=== PATIENT | female | born 1960 | race Caucasian/White ===

== ENCOUNTER 2022-10-13 09:33 | Outpatient (OUT) | payer OTHER, SELFPAY ==
[2022-10-13 10:03] LABS: Basophils Absolute Auto 0.1 10^3/uL (0.0-0.1); Basophils Percent Auto 0.9 % (0.2-2.0); Eosinophils Absolute Auto 0.3 10^3/uL (0.0-0.7); Eosinophils Percent Auto 4.4 % (0.9-7.0); Hematocrit 36.8 % (36.0-48.0); Hemoglobin 11.8 g/dL (12.0-16.0); Immature Granulocytes Abs Auto 0.03 10^3/uL (0.00-0.03); Immature Granulocytes Pct Auto 0.5 % (0.0-0.5); Lymphocytes Absolute Auto 1.4 10^3/uL (1.2-3.8); Mean Corpuscular HGB Conc 32.1 g/dL (29.9-35.2); Mean Corpuscular Hemoglobin 27.5 pg (26.7-34.0); Mean Corpuscular Volume 85.8 fL (81.0-99.0); Mean Platelet Volume 9.6 fL (9.5-13.5); Monocytes Absolute Auto 0.6 10^3/uL (0.3-0.8); Monocytes Percent Auto 10.7 % (1.7-12.0); Neutrophils Absolute Auto 3.3 10^3/uL (1.4-6.5); Neutrophils Percent Auto 58.5 % (43.0-75.0); Platelet Count 326 10^3/uL (150-450); Red Blood Count 4.29 10^6/uL (4.20-5.40); Red Cell Distribution Width 14.5 % (11.0-15.0); White Blood Count 5.7 10^3/uL (4.0-11.0)
[2022-10-13 10:06] LABS: Estimated Average Glucose 120 mg/dL; Glycohemoglobin A1C 5.8 % (4.5-6.2)
[2022-10-13 11:12] LABS: Sodium 139 mmol/L (136-145)
[2022-10-13 11:13] LABS: Alanine Aminotransferase 46 U/L (14-59); Albumin Globulin Ratio 1.1; Albumin Level 3.9 g/dL (3.4-5.0); Alkaline Phosphatase 92 U/L (46-116); Anion Gap 12.2; Aspartate Amino Transferase 30 U/L (15-37); BUN Creatinine Ratio 35.6; Bilirubin Total 0.6 mg/dL (0.2-1.0); Calcium 9.3 mg/dL (8.5-10.1); Carbon Dioxide 27.2 mmol/L (21.0-32.0); Chloride 104 mmol/L (98-107); Estimated GFR (African America >60 (>=60); Estimated GFR (Non-African Ame >60 (>=60); Globulin 3.6 g/dL; Glucose 106 mg/dL (74-106); Potassium 4.4 mmol/L (3.5-5.1); Total Protein 7.5 g/dL (6.4-8.2); Triglycerides 203 mg/dL (<=150); VLDL CHOLESTEROL 40.6 mg/dL
[2022-10-13 11:14] LABS: Chol HDL Ratio 3.7; Cholesterol 150 mg/dL (<=200); Free T3 2.62 pg/mL (2.18-3.98); HDL Cholesterol 41 mg/dL (40-60); Thyroid Stimulating Hormone 0.133 uIU/mL (0.358-3.740)
[2022-10-14 12:09] LABS: Insulin 11.9 uIU/mL (2.6-24.9)
== END 2022-10-13 09:34 | disposition home or self-care (01) ==
PROVIDERS: PCP Family Medicine; Visit Provider Family Medicine
DX: Z00.00 Encounter for general adult medical examination without abnormal findings (principal)
CPT/HCPCS: 36415; 80053; 80061; 82306; 83036; 83525; 83540; 84436; 84443; 84481; 85025

== ENCOUNTER 2022-10-16 09:57 | Outpatient (REF) | payer OTHER, SELFPAY ==
[2022-10-16 15:25] LABS: Occult Blood Negative
[2022-10-17 08:02] LABS: C. Difficile PCR NEGATIVE (NEGATIVE)
== END 2022-10-16 09:58 | disposition home or self-care (01) ==
LOC: LAB 09:57
PROVIDERS: PCP Family Medicine; Visit Provider Family Medicine
DX: Z00.00 Encounter for general adult medical examination without abnormal findings (principal)
CPT/HCPCS: 87045; 87493; 87507; G0328

== ENCOUNTER 2023-07-10 09:27 | Outpatient (OUT) | payer OTHER, SELFPAY ==
[2023-07-10 09:44] LABS: Basophils Absolute Auto 0.1 10^3/uL (0.0-0.1); Basophils Percent Auto 0.9 % (0.2-2.0); Eosinophils Absolute Auto 0.3 10^3/uL (0.0-0.7); Eosinophils Percent Auto 2.7 % (0.9-7.0); Hematocrit 34.7 % (36.0-48.0); Hemoglobin 10.4 g/dL (12.0-16.0); Immature Granulocytes Abs Auto 0.06 10^3/uL (0.00-0.03); Immature Granulocytes Pct Auto 0.6 % (0.0-0.5); Lymphocytes Absolute Auto 1.8 10^3/uL (1.2-3.8); Lymphocytes Percent Auto 18.9 % (20.5-60.0); Mean Corpuscular Hemoglobin 24.4 pg (26.7-34.0); Mean Corpuscular Volume 81.5 fL (81.0-99.0); Mean Platelet Volume 9.6 fL (9.5-13.5); Monocytes Absolute Auto 0.9 10^3/uL (0.3-0.8); Monocytes Percent Auto 9.7 % (1.7-12.0); Neutrophils Absolute Auto 6.5 10^3/uL (1.4-6.5); Neutrophils Percent Auto 67.2 % (43.0-75.0); Platelet Count 338 10^3/uL (150-450); Red Blood Count 4.26 10^6/uL (4.20-5.40); Red Cell Distribution Width 19.6 % (11.0-15.0); White Blood Count 9.6 10^3/uL (4.0-11.0)
[2023-07-10 13:05] LABS: Alanine Aminotransferase 156 U/L (14-59); Albumin Level 3.5 g/dL (3.4-5.0); Alkaline Phosphatase 87 U/L (46-116); Anion Gap 13.4; Aspartate Amino Transferase 102 U/L (15-37); BUN Creatinine Ratio 30.1; Bilirubin Total 0.4 mg/dL (0.2-1.0); Calcium 9.8 mg/dL (8.5-10.1); Carbon Dioxide 28.1 mmol/L (21.0-32.0); Chloride 104 mmol/L (98-107); Chol HDL Ratio 2.8; Cholesterol 150 mg/dL (<=200); Estimated GFR (African America >60 (>=60); Estimated GFR (Non-African Ame >60 (>=60); Globulin 3.5 g/dL; Glucose 91 mg/dL (74-106); HDL Cholesterol 54 mg/dL (40-60); LDL Cholesterol Calculated 77.8 mg/dL; Potassium 4.5 mmol/L (3.5-5.1); Sodium 141 mmol/L (136-145); Thyroid Stimulating Hormone 6.212 uIU/mL (0.358-3.740); Triglycerides 91 mg/dL (<=150); VLDL CHOLESTEROL 18.2 mg/dL
[2023-07-10 14:42] LABS: Estimated Average Glucose 108 mg/dL; Glycohemoglobin A1C 5.4 % (4.5-6.2)
[2023-07-10 14:50] LABS: C. Difficile PCR NEGATIVE (NEGATIVE)
== END 2023-07-10 09:28 | disposition home or self-care (01) ==
LOC: LAB 09:28
PROVIDERS: PCP Family Medicine; Visit Provider Family Medicine
DX: Z00.00 Encounter for general adult medical examination without abnormal findings (principal); E78.5 Hyperlipidemia, unspecified; R73.9 Hyperglycemia, unspecified; R10.11 Right upper quadrant pain
CPT/HCPCS: 36415; 80053; 80061; 83036; 84436; 84443; 84481; 85025; 87045; 87046; 87427; 87493

== ENCOUNTER 2023-07-14 08:43 | Outpatient (OUT) | payer OTHER, SELFPAY ==
--- NOTE | 2023-07-14 08:47 | US_ITS ---
[facility] [id number] Patient Name: GRACY QUINTANA MRN: [id number] date: 1960 Sex: F Assigned Patient Location: US Current Patient Location: US Accession/Order Number: [id number] Exam Date: 07/14/2023 08:50 Report Date: 07/14/2023 09:20 At the request of: LUCRETIA HARRY Procedure: US right upper quadrant EXAM: US right upper quadrant HISTORY: Right Upper Quadrant Pain R10.11 COMPARISON: None. TECHNIQUE: Grayscale, color and Doppler FINDINGS: The liver is normal in size and contour measuring 18.2 cm in length. Diffuse increase in hepatic echotexture with no focal mass. Hepatopedal flow in the portal vein with velocity of 34 cm/s. The gallbladder is normal in size. The wall measures 2 mm, normal. Negative sonographic Almendarez sign. The common bile duct measures 3.8 mm. The visualized pancreas is normal The right kidney is normal measuring 11.9 x 5.4 x 5.7 cm. 2 cm area of anechoic echogenicity lower pole cortex consistent with a simple cyst. US/US right upper quadrant IMPRESSION: Echogenic liver suggesting hepatic steatosis Electronically authenticated by: DANE JACOME Date: 07/14/2023 09:20
== END 2023-07-14 08:44 | disposition home or self-care (01) ==
LOC: US 08:43
PROVIDERS: PCP Family Medicine; Visit Provider Family Medicine
DX: R10.11 Right upper quadrant pain (principal)
CPT/HCPCS: 76705

== ENCOUNTER 2023-07-16 08:48 | Outpatient (OUT) | payer OTHER, SELFPAY ==
[2023-07-16 09:59] LABS: Alanine Aminotransferase 169 U/L (14-59); Albumin Level 3.5 g/dL (3.4-5.0); Alkaline Phosphatase 93 U/L (46-116); Anion Gap 12.7; Aspartate Amino Transferase 106 U/L (15-37); BUN Creatinine Ratio 27.8; Bilirubin Total 0.6 mg/dL (0.2-1.0); Calcium 9.4 mg/dL (8.5-10.1); Chloride 103 mmol/L (98-107); Estimated GFR (African America >60 (>=60); Estimated GFR (Non-African Ame >60 (>=60); Globulin 3.5 g/dL; Glucose 94 mg/dL (74-106); Potassium 4.7 mmol/L (3.5-5.1); Sodium 139 mmol/L (136-145)
[2023-07-17 06:09] LABS: HBsAg Screen Negative (Negative); HCV Ab Non Reactive (Non Reactive); Hep A Ab, IgM Negative (Negative); Hep B Core Ab, IgM Negative (Negative)
== END 2023-07-16 08:49 | disposition home or self-care (01) ==
LOC: LAB 08:49
PROVIDERS: PCP Family Medicine; Visit Provider Family Medicine
DX: R79.89 Other specified abnormal findings of blood chemistry (principal); R94.5 Abnormal results of liver function studies; E03.9 Hypothyroidism, unspecified
CPT/HCPCS: 36415; 80053; 80074; 84439; 84443

== ENCOUNTER 2023-08-18 09:21 | Outpatient (OUT) | payer BC, SELFPAY ==
[2023-08-18 10:23] LABS: Alanine Aminotransferase 119 U/L (14-59); Albumin Globulin Ratio 0.9; Albumin Level 3.1 g/dL (3.4-5.0); Alkaline Phosphatase 86 U/L (46-116); Anion Gap 10.2; Aspartate Amino Transferase 57 U/L (15-37); BUN Creatinine Ratio 22.4; Bilirubin Total 0.5 mg/dL (0.2-1.0); Calcium 9.4 mg/dL (8.5-10.1); Carbon Dioxide 30.3 mmol/L (21.0-32.0); Chloride 106 mmol/L (98-107); Estimated GFR (African America >60 (>=60); Estimated GFR (Non-African Ame >60 (>=60); Globulin 3.3 g/dL; Glucose 95 mg/dL (74-106); Potassium 4.5 mmol/L (3.5-5.1); Sodium 142 mmol/L (136-145); Thyroid Stimulating Hormone 0.016 uIU/mL (0.358-3.740); Total Protein 6.4 g/dL (6.4-8.2)
[2023-08-18 10:24] LABS: Free T4 1.26 ng/dL (0.76-1.46)
== END 2023-08-18 09:22 | disposition home or self-care (01) ==
LOC: LAB 09:23
PROVIDERS: PCP Family Medicine; Visit Provider Family Medicine
DX: R79.89 Other specified abnormal findings of blood chemistry (principal); R94.5 Abnormal results of liver function studies; E03.9 Hypothyroidism, unspecified; K76.0 Fatty (change of) liver, not elsewhere classified; R10.11 Right upper quadrant pain
CPT/HCPCS: 36415; 80053; 84439; 84443

== ENCOUNTER 2023-12-04 15:42 | Outpatient (OUT) | payer MEDICARE, SELFPAY ==
--- OUTSIDE RECORDS SUMMARY | 2023-12-04 15:50 | XMS_ITS | CCD ---
Author Organization [facility] Care Team Providers Care Clock Assembler Name Role Phone Lucretia Lee Unavailable Unavailable Unavailable PIERO, DR BOYKIN Admitting Unavailable PIERO, DR BOYKIN Attending Unavailable PIERO, DR BOYKIN Primary Care Unavailable PIERO, DR BOYKIN Consulting Unavailable WEST, DR DANE Shea Consulting Unavailable PIERO, DR BOYKIN Admitting Unavailable PIERO, DR BOYKIN Attending Unavailable PIERO, DR BOYKIN Primary Care Unavailable PIERO, DR BOYKIN Consulting Unavailable Blades Junie Unavailable LEVI Amador Admitting Unavailabl e Zahra Amador Attending Unavailable Lucretia Lee Referring Unavailable MD Leonidas Segura Admitting Unavailable Leonidas Segura Attending Unavailable Lucretia Lee Referring Unavailable MD Leonidas Segura Admitting Unavailable Leonidas Segura Attending Unavailable Leonidas Segura Referring Unavailable Leonidas Segura Admitting Unavailable Leonidas Segura Attending Unavailable Leonidas Segura Referring Unavailable Lucretia Lee Admitting Unavailable Lucretia Lee Attending Unavailable Lucretia Lee Referring Unavailable ZOË FU Referring Unavailable KRISTAL CHAUHAN Attending Unavailable ZOË FU Attending Unavailable ZOË FU Referring Unavailable Medications Current Medications Medication Drug Class(es) Dates Sig (Normalized) Sig (Original) Multivitamin preparation (1 source) Multivitamin *pl ease review for potential _update for e-prescription and drug interaction check* Active Completed/Discontinued Medications Medication Drug Class(es) Dates Sig (Normalized) Sig (Original) Acetaminophen / oxyCODONE (1 source) Opioid Agonist Percocet *please review for potential _update for e-prescription and drug interaction check* Not-Taking ascorbic acid 500 mg oral capsule (1 source) Vitamin C take 1 capsule by mouth once daily Vitamin C 500 MG Oral Capsule TAKE 1 CAPSULE Daily Quantity: 0 Refills: 0 Ordered: 11-Jul-2021 DO Active aspirin 325 mg delayed release oral tablet (1 source) Platelet Aggregation Inhibitor, Nonsteroidal Anti-inflammatory Drug take 1 tablet by mouth every twelve hours Aspirin 325 MG 1 tablet Orally Twice a day Not-Taking Calcium (1 source) Phosphate Binder, Calcium Calcium *please review for potential _update for e-prescription and drug interaction check* Not-Taking celecoxib 200 mg oral capsule (2 sources) Nonsteroidal Anti-inflammatory Drug Start: 11-17-2011 take 1 capsule by mouth twice daily as needed Celecoxib 200 MG Oral Capsule TAKE 1 CAPSULE TWICE DAILY NEEDED. Quantity: 0 Refills: 0 Ordered: 29-Apr-2021 DO Start : 16-Nov-2020 Active cephalexin 500 mg oral tablet (2 sources) Cephalosporin Antibacterial take 2 capsules by mouth every hour Keflex 500 MG 2 capsule Orally 2 capsules evening prior to appt; 2 capsules 1hr prior to appt for 1 days Not-Taking Co Q-10 (1 source) Co Q-10 *please review for potential _update for e-prescription and drug interaction check* Not-Taking ferrous sulfate 325 mg oral tablet (1 source) take 1 tablet by mouth every twelve hours Iron 325 (65 Fe) mg 1 tablet Orally bid for 30 day(s) Not-Taking Fish Oils (1 source) [facility] Fish Oil 120 0 MG Oral *please review for potential _update for e-prescription and drug interaction check* Not-Taking levothyroxine sodium 0.112 mg oral tablet (2 sources) l-Thyroxine Start: 06-14-2021 take 1 tablet by mouth once daily Synthroid 112 MCG Oral Tablet TAKE 1 TABLET DAILY. Quantity: 0 Refills: 0 Ordered: 14-Jun-2021 DO Start : 14-Jun-2021 Active take 1 capsule by [facility] every twenty-four hours Levothyroxine Sodium 112 MCG 1 capsule o n an empty stomach in the morning Orally Once a day for 30 day(s) *please review for potential _update for e-prescription and drug interaction check* Active lisinopril 10 mg oral tablet (2 sources) Angiotensin Converting Enzyme Inhibitor Start: 06-14-2021 take 1 tablet by mouth once daily Lisinopril 10 MG Oral Tablet TAKE 1 TABLET DAILY. Quantity: 0 Refills: 0 Ordered: 14-Jun-2021 DO Start : 14-Jun-2021 Active Magnesium (2 sources) Magnesium 250 MG 1 capsule with a meal Orally Not-Taking take 1 tablet by mouth once samira y Magnesium 500 MG Oral Tablet Take 1 tablet daily Quantity: 0 Refills: 0 Ordered: 11-Jul-2021 DO Active metoprolol tartrate 50 mg oral tablet (2 sources) beta-Adrenergic Peterson Start: 06-27-2021 take 1 tablet by mouth once daily Metoprolol Tartrate 50 MG Oral Tablet TAKE 1 TABLET EVERY 12 HOURS DAILY. Quantity: 0 Refills: 0 Ordered: 27-Jun-2021 DO Start : 27-Jun-2021 Active Multi Vitamin Oral Tablet (1 source) take 1 tablet by mouth once daily Multi Vitamin Oral Tablet TAKE 1 TABLET DAILY. Quantity: 0 Refills: 0 Ordered: 11-Jul-2021 DO Active omeprazole 10 mg oral tablet (1 source) Proton Pump Inhibitor Omeprazole 10 MG Oral *please review for potential _update for e-prescription and drug interaction check* Not-Taking pantoprazole 40 mg delayed release oral tablet (2 sources) Proton Pump Inhibitor Start: 06-14-2021 take 1 tablet by mouth once daily Pantoprazole Sodium 40 MG Oral Tablet Delayed Release TAKE 1 TABLET DAILY. Quantity: 0 Refills: 0 Ordered: 14-Jun-2021 DO Start : 14-Jun-2021 Active pregabalin 100 mg oral capsule (1 source) take 1 capsule by mouth twice daily Lyrica 100 MG (Schedule V Drug) TAKE 1 CAPSULE BY MOUTH TWICE A DAY Oral for 30 Not-Taking rosuvastatin calcium 20 mg oral tablet (2 sources) HMG-CoA Reductase Inhibitor Start: 06-14-2021 take 1 tablet by mouth once daily Rosuvastatin Calcium 20 MG Oral Tablet TAKE 1 TABLET DAILY. Quantity: 0 Refills: 0 Ordered: 14-Jun-2021 DO Start : 14-Jun-2021 Active Problems Active Problems Problem Classification Problem Date Documented Date Episodic/Chronic Disorders of lipid metabolism (2 sources) Hyperlipidemia; Translations: [Other and unspecified hyperlipidemia] Onset: 03-26-2022 Chronic Other acquired deformities (1 source) Lumbar spondylolisthesis; Translations: [Spondylolisthesis, lumbar region] Episodic Other nutritional; endocrine; and metabolic disorders (1 source) Obesity; Translations: [Obesity, unspecified] Chronic Spondylosis; intervertebral disc disorders; other back problems (1 source) Degeneration of lumbar intervertebral disc; Translations: [Other intervertebral disc degeneration, lumbar region] Chronic Spondylosis; intervertebral disc disorders; other back problems (1 source) Spinal stenosis, lumbar region with neurogenic claudication Episodic Thyroid disorders (5 sources) Hypothyroidism; Translations: [Unspecified acquired hypothyroidism] Onset: 03-18-2022 Chronic Past or Other Problems Problem Classification Problem Date Documented Da te Episodic/Chronic Cardiac dysrhythmias (5 sources) Palpitations; Translations: [Palpitations] Onset: 07-08-2021 Episodic Nonspecific chest pain (1 source) Chest pain, unspecified; Translations: [CHEST PAIN UNSPECIFIED] Onset: 07-10-2021 Episodic Residual codes; unclassified (1 source) History of chest pain; Translations: [Personal history of other specified diseases] Resolved: 07-11-2021 Episodic Unclassified (1 source) Never smoked tobacco; Translations: [Never a smoker] Results Test Name Value Interpretation Reference Range Facility CT Abdomen/Pelvis w/ Contras ton 07-24-2023 CT Abdomen/Pelvis w/ Contrast Exam Date/Time: 07/22/2023 14:12 EDT Reason for Exam: R79.89 Other specified abnormal findings of blood chemistry Report IMPRESSION: No acute process in the abdomen/pelvis. Hepatic steatosis. Diverticulosis without diverticulitis. EXAMINATION: CT Abdomen/Pelvis w/ Contrast HISTORY: R79.89 Other specified abnormal findings of blood chemistry. Bloating. Abdominal pressure. History of appendectomy. TECHNIQUE: CT of the abdomen and pelvis was performed using standard technique with intravenous contrast, scanning from just above the dome of the diaphragm to the symphysis pubis. Including delayed images through the kidneys. Including sagittal and coronal reconstructions on both phases. Unless otherwise stated, incidental findings identified in this report do not require routine follow-up imaging. All CT scans at this facility use dose modulation, iterative reconstruction, and/or weight based dosing when appropriate to reduce radiation dose to as low as reasonably achievable. COMPARISON: None. RESULT: Liver: Diffuse hepatic steatosis. No suspicious liver lesion. Biliary: Gallbladder unremarkable. No biliary ductal dilation. Pancreas: No mass or duct dilation. Spleen: No mass or splenomegaly. Adrenals: No mass. Kidneys: No calculus or hydronephrosis. Benign cysts. Subcentimeter lesion(s) that are too small to characterize but likely benign. Delayed phase imaging with normal excreted contrast in the renal collecting system, ureters, and bladder. GI tract: Distention of the stomach with debris. No bowel dilation. Contrast reaches the colon. Appendix not visualized, reported appendectomy. Diverticulosis, especially Report of the left colon, without evidence for acute diverticulitis. Lymph nodes: No abdominal or pelvic lymphadenopathy. Mesentery/Peritoneum /Retroperitoneum: No ascites or mass. Vasculature: The celiac axis and SMA are patent. The portal vein and branches, splenic vein, SMV, and hepatic veins are patent. Mild arterial atherosclerotic disease without aneurysm. Pelvis: Artifact from the right hip arthroplasty. Uterus grossly unremarkable. Bladder decompressed. Bones: No acute osseous findings. Underlying decreased bone mineral density. Right hip arthroplasty. Multilevel degenerative changes within the spine. Grade 1 anterolisthesis of L4 on L5. Degenerative changes left hip. Soft tissues: Unremarkable. Lower thorax: Unremarkable. Ordering Provider: Lucretia Lee FINAL REPORT Dictated: 07/24/2023 2:39 pm Dale Yu MD Signed (Electronic Signature): 07/24/2023 2:39 pm Signed by: Dale Yu MD Transcribed by: TEQUILA Technologist: QUYEN Technical Comments GFR (mL/min/1/73m2) >60 Contrast: Isovue 300 Contrast amount in ml's: 100 Oral contrast amount in ml's: 900 [facility] Consent for Treatmenton 06-29 Consent for Treatment [id number] #1.00TIFF [facility] RAD - MISCon 07-22-2023 RAD - MISC [id number] 8#1.00TIFF [facility] Insurance Correspondenceon 0 07-17-2023 Insurance Correspondence [id number] 1#1.00TIFF [facility] Physician Orderon 07-17-2023 Physician Order [id number] #1.00TIFF [facility] Outside Records Officeon Outside Records Office [id number] #1.00CD:127 [facility] Coding Queryon 11-20-2022 Coding Query - From: Kacey Toure To: Leonidas Segura MD; Sent: 11/20/2022 18:46:36 EDT ! Subject: Coding Query (Template) CODING COMMUNICATION: _XX_ Diagnosis missing please document on Operative Note. ____ Procedure information missing: ____ Please clarify type of organism associated with infection ____ Please complete ROS or HPI for ER documentation Please feel free to contact the coding department with any questions. Thank you! - From: Leonidas Segura MD To: Kacey Toure; Sent: 11/20/2022 18:48:56 EDT Subject: RE: Coding Query (Template) Caller Name: GRACY QUINTANA; Caller Number: , fixed [facility] Consent for Procedure/Surger yon 11-19-2022 Consent for Procedure/Surgery [id number] 8#1.00CD:127 [facility] Consent for Treatmenton 10-29 Consent for Treatment [id number] 8#1.00CD:127 [facility] Discharge Instructionson Discharge Instructions [id number] 5#1.00CD:127 [facility] IntraOperative Documentson 0 11-19-2022 IntraOperative Documents [id number] 1#1.00CD:127 [facility] Main OR Intraoperative Recor don 11-19-2022 Main OR Intraoperative Record IntraOp Document Type FTPM Summary Primary Physician: Leonidas Segura MD Finalized Date/Time: 11/19/22 10:39:21 Pt. Name: GRACY QUINTANA Janie RiveraB./Sex: 1960 Female Med Rec #: [id number] Physician: Leonidas Segura MD Financial #: [id number] Pt. Type: P Room/Bed: / Admit/Disch: 11/19/22 08:10:24 - Institution: Case Times FTPM Entry 1 Patient Times In Room 11/19/22 10:28:00 Out Room 11/19/22 10:39:00 Procedure Times Start 11/19/22 10:31:00 Stop 11/19/22 10:38:00 Anesthesia Times Last Modified By: Ellen Mathew RN 11/19/22 10:38:44 Case Attendance FTPM Entry 1 Entry 2 Entry 3 Case Attendee Colton HOWE, Leonidas Mathew RN, Shawna Daniel RN Role Performed Surgeon - Primary Psychological Assistant - Primary Scrub - Primary Time In 11/19/22 10:28:00 11/19/22 10:28:00 11/19/22 10:28:00 Time Out 11/19/22 10:39:00 11/19/22 10:39:00 11/19/22 10:39:00 Procedure TRANSFORAMINAL EPIDURAL TRANSFORAMINAL EPIDURAL TRANSFORAMINAL EPIDURAL STEROID STEROID STEROID INJECTIO(Bilateral) INJECTIO(Bilateral) INJECTIO(Bilateral) Comments Dr Rutherford Last Modified By: Priyanka JHAVERI, Ellen Mathew RN, Ellen Garces RN 11/19/22 10:38:45 11/19/22 10:38:45 11/19/22 10:38:45 Entry 4 Case Attendee Lyly Knight Role Performed Meter Supervisor Time In 11/19/22 10:28:00 Time Out 11/19/22 10:39:00 Procedure TRANSFORAMINAL EPIDURAL STEROID INJECTIO(Bilateral) Comments Last Modified By: Ellen Mathew RN 11/19/22 10:38:45 Perioperative Protocols FTPM Pre-Care Text: Implements protective measures prior to operative or invasive procedure, confirms identity before the operative or invasive procedure, verifies operative procedure, surgical site, and laterality Entry 1 Procedure(s) TRANSFORAMINAL EPIDURAL Patient Identity Birthday, ID Band STEROID Verified (select at Check, Patient INJECTIO(Bilateral) least 2): Participation Consents / H and P HandP, Surgery/Procedure Operative Site Present Verified Consent Marking Verified Surgical Site Yes Laterality Verified Yes Verified Procedure Verified Yes Correct Patient Yes Position Verified Availability Equipment, Medication, Prep Dry Yes Verified (If X-ray Applicable) PreOp Antibiotic No Time Out Ellen Mathew RN, Smith RN, Colton Matos MD, Antonia Lauren Laura M Time Out Complete 11/19/22 10:29:00 Outcomes Met? Yes Last Modified By: Ellen Mathew RN 11/19/22 10:29:38 Post-Care Text: The patient is free from signs and symptoms of injury caused by extraneous objects Allergy Information FTPM Pre-Care Text: Verifies allergies Entry 1 Allergies Reviewed? Yes Allergies Reviewed Self/Patient With Outcomes Met? Yes Last Modified By: Ellen Mathew RN 11/19/22 08:30:53 Post-Care Text: The patient received appropriate medication(s) safely administered during the perioperative period Surgical Procedures FTPM Entry 1 Procedure Description Procedure TRANSFORAMINAL EPIDURAL Modifiers Bilateral STEROID INJECTION Surgeon Description L5/S1 TFESI Primary Procedure Yes Primary Surgeon Leonidas Segura MD Start 11/19/22 10:31:00 Stop 11/19/22 10:38:00 Anesthesia Type None Surgical Service Pain Management Wound Class 1 - Clean Last Modified By: Ellen Mathew RN 11/19/22 10:38:47 General Case Data FTPM Pre-Care Text: Classifies surgical wound, implements aseptic technique, initiates traffic control Entry 1 Case Information OR Pain Proc Room Case Level Level 2 Wound Class 1 - Clean Specialty Pain Management Preop Diagnosis M54.17 Postop Same As Preop Yes Postop Diagnosis M54.17 Outcomes Met? Yes Last Modified By: Ellen Mathew RN 11/19/22 10:29:49 Post-Care Text: The patient is free from signs and symptoms of infection Skin Assessment (Pre Procedure) FTPM Pre-Care Text: Implements protective measures to prevent skin/ tissue injury due to thermal or mechanical sources Evaluates for signs and symptoms of physical injury to skin and tissue Entry 1 Skin Integrity Intact, [place], Warm, and Skin Abnormality No Dry Outcomes Met? Yes Last Modified By: Ellen Mathew RN 11/19/22 08:31:02 Post-Care Text: The patient is free from signs and symptoms of injury caused by extraneous objects Patient Positioning FTPM Pre-Care Text: Identifies physical alterations that require additional precautions for procedure-specific positioning, verifies presence of prosthetics or corrective devices, positions the patient, evaluates the patient for signs and symptoms of injury as a result of positioning Entry 1 Procedure TRANSFORAMINAL EPIDURAL Body Position Prone STEROID INJECTIO(Bilateral) Feet Uncrossed? Yes Left Arm Position Resting at Side Right Arm Position Resting at Side Left Leg Position Extended Right Leg Position Extended Positioning Device Pillow Under Head Large, Safety (more content not included)... [facility] Main OR Preoperative Recordo n 11-19-2022 Main OR Preoperative Record Holding Area Document Type FTPM Summary Primary Physician: Leonidas Segura MD Finalized Date/Time: 11/19/22 09:23:57 Pt. Name: GRACY QUINTANA/Sex: 1960 Female Med Rec #: [id number] Physician: Leonidas Segura MD Financial #: [id number] Pt. Type: P Room/Bed: / Admit/Disch: 11/19/22 08:10:24 - Institution: Case Times Holding FTPM Pre-Care Text: Verifies consent for planned procedure, identifies individual values and wishes concerning care, includes family members in perioperative teaching Secures patient's records' belongings, and valuables, maintains patient's dignity and privacy, and maintains patient confidentiality Entry 1 In Holding 11/19/22 09:16:00 Outcomes Met? Yes Last Modified By: Keke Parker RN 11/19/22 09:21:26 Post-Care Text: The patient participates in decisions affecting his or her perioperative plan of care The patient's right to privacy is maintained Surgery Checklist FTPM Entry 1 Patient Birthday, ID Band Procedure History and Physical, Identification: Check, Patient Verification: Surgical Consent, With Participation Patient NPO after Midnight: n/a Date/Time: 11/19/22 08:00:00 Results Reviewed COFFEE AND WATER Personal Items: Jewelry Comments: Personal Items 2 rings and one necklace Complaints of Pain: Yes Comment: Pain Comment: 10/06 to lower back and Operative Site Yes left leg numbness Marking: Marked By: oeprative site marked Location: L5/S1 by Dr. Segura Availability Equipment, X-Ray Verified: Does Patient Smoke No Patient states Yes Comment - Adult nimo-spouse postop adult Supervision supervision available Case Cancelled in No Holding Area see comments below for reason Last Modified By: Keke Parker RN 11/19/22 09:23:48 Finalized By: Keke Parker RN Document Signatures Signed By: Keke Parker RN 11/19/22 09:23 [facility] Patient Correspondenceon Patient Correspondence [id number] 8#1.00CD:127 [facility] Insurance Correspondence Off iceon 11-14-2022 Insurance Correspondence Office [id number] 0#2.00CD:127 [facility] Referrals Officeon Referrals Office [id number] 3#1.00CD:127 [facility] Consent for Treatmenton 09-29 Consent for Treatment [id number] 9#1.00CD:127 [facility] Consultation Noteon 10-28-19 Consultation Note * Final Report * Pain Managment Follow up Patient: GRACY QUINTANA Age: 62 years Sex: Female : 1960 Associated Diagnoses: None Author: Zahra Amador PA-C Subjective Chief complaint 10/27/2022 9:03 EDT low back pain, radiates into right buttock . Patient is a 62-year-old female. She presents today for follow-up after undergoing an updated lumbar MRI. She continues have lower back pain with right buttock pain and intermittent right leg pain as well as left leg pain, numbness, tingling, and weakness. She rates her discomfort an 8/10 with any sort of activity. Walking, standing, being active and trying to do things throughout the day makes it worse. Resting does make it somewhat better but the minute she gets up to try to do anything she has this discomfort. She has a history of partial laminectomy at L5-S1 many years ago. She states that she really wants to try and avoid surgery but she just wants to feel better. She also able to walk further and stand longer. Previous physical therapy did not help. Anti-inflammatory medications do not help. She is eager to see what the MRI shows and what her options are. Previous bilateral L5-S1 transforaminal epidural steroid injection gave her over 50% relief for over 3 months. She did well with this. Other conservative treatments have failed. Therapy did not give her any long-term relief and anti-inflammatory medications do not give her any long-term relief. Health Status Allergies: Allergic Reactions (Selected) No Known Allergies, Allergies (1) Active Reaction No Known Allergies None Documented Current medications: (Selected) Documented Medications Documented CeleXA 10 mg Tab: 10 mg = 1 tab(s), Oral, Daily, Refills(s) 0, Depression Celebrex: 200 mg, Oral, Daily, 1-2 times a day as needed for pain., Refills(s) 0, Inflammation Crestor 20 mg Tab: 20 mg = 1 tab(s), Oral, Once a day (at bedtime), Refills(s) 0, High cholesterol Metoprolol tartrate 50 mg Tab: 50 mg = 1 tab(s), Oral, BID, Refills(s) 0, High blood pressure Multi Vitamins oral tablet: 1 tab(s), Oral, Daily, Prophylaxis Protonix: 40 mg, Oral, Daily, Refills(s) 0, Control of stomach acid aspirin 81 mg oral capsule: 81 mg = 1 cap(s), Oral, Daily, Refills(s) 0 levothyroxine 112 mcg (0.112 mg) Tab: 112 mcg = 1 tab(s), Oral, Daily, Refills(s) 0, Thyroid lisinopril: 10 mg, Oral, Daily, Refills(s) 0, High blood pressure Problem list: All Problems Arthritis / SNOMED CT 8618647956 / Confirmed Hypothyroidism / SNOMED CT 545843604 / Confirmed Acid reflux / SNOMED CT 917445384 / Confirmed Osteoarthritis / SNOMED CT 4064555023 / Confirmed MISAEL (generalized anxiety disorder) / SNOMED CT 68830382 / Confirmed DDD (degenerative disc disease), lumbar / SNOMED CT 12628629 / Confirmed Spondylolisthesis, lumbar region / SNOMED CT 2481866842 / Confirmed Fibrocystic breast disease / SNOMED CT 93761069 / Confirmed Uterine fibroid / SNOMED CT 720332578 / Confirmed Hyperlipidemia / SNOMED CT 60881707 / Confirmed Depression / SNOMED CT 62103757 / Confirmed Sleep apnea / SNOMED CT 613195933 / Confirmed Diverticulosis / SNOMED CT 0532661139 / Confirmed BMI 31.0-31.9,adult / SNOMED CT 896256080 / Confirmed Positive colorectal cancer screening using Cologuard test / SNOMED CT 9273636724 / Confirmed Chronic GERD / SNOMED CT 460148672 / Confirmed Anemia / SNOMED CT 673806406 / Confirmed Resolved: cholesterol Resolved: HTN (hypertension) / SNOMED CT 7988466414 Canceled: Carpal tunnel syndrome / SNOMED CT 15144765 Objective Vital Signs 10/27/2022 9:03 EDT Peripheral Pulse Rate 63 bpm Respiratory Rate 18 br/min Systolic Blood Pressure 138 mmHg Diastolic Blood Pressure 87 mmHg Mean Arterial Pressure, Cuff 104 mmHg General: Alert and oriented, No acute distress. Overweight Eye: Normal conjunctiva. HENT: Normocephalic, Normal hearing. Cardiovascular: No edema. Musculoskeletal Normal range of motion. Normal strength. 5/5 lower extremity strength other than left hip flexion, ADF, and EHL 4+ to 5 -/5 Positive straight leg raise bilaterally Integumentary: Warm, Dry, [place]. Neurologic: Alert, Oriented. Psychiatric: Cooperative, Appropriate mood & affect. Results Review * Final Report * Reason For Exam M54.17 M48.062 POWERSCRIBE REPORT IMPRESSION: DEGENERATIVE AND POSTOPERATIVE CHANGES, SUBSTANTIALLY SIMILAR TO 09/21/2017, DESCRIBED IN DETAIL. EXAM: MRI Spine Lumbar w/ + w/o Contrast DATE: 09/19/2022 CLINICAL HISTORY: M54.17 M48.062. COMPARISON: Lumbar spine MRI 09/21/2017 and lumbosacral spine radiographs 03/16/2022. TECHNIQUE: Multiplanar MR imaging of the lumbar spine was performed before and after intravenous administration of approximately 10 mL of MultiHance gadolinium contrast. FINDINGS: The spine is visualized from T11-12 through S2, on the diagnostic sagittal sequences. Alignment: Lumbar lordosis is maintained. Mild retrolisthesis of L1 ove (more content not included)... Normal [facility] [facility] Comment on above: Result Comment: Elec tronically Signed By: Zahra Amador PA-C\.br\Date and Time Signed: 10/27/22 09:28 EDT\.br\Electronically Co-Signed By: Leonidas Segura MD\.br\Date and Time Co-Signed: 10/31/22 19:27 EDT Consultation Note Patient: GRACY QUINTANA Age: 62 years Sex: Female : 1960 Associated Diagnoses: None Author: Zahra Amador PA-C Subjective Chief complaint 10/27/2022 9:03 EDT low back pain, radiates into right buttock . Patient is a 62-year-old female. She presents today for follow-up after undergoing an updated lumbar MRI. She continues have lower back pain with right buttock pain and intermittent right leg pain as well as left leg pain, numbness, tingling, and weakness. She rates her discomfort an 8/10 with any sort of activity. Walking, standing, being active and trying to do things throughout the day makes it worse. Resting does make it somewhat better but the minute she gets up to try to do anything she has this discomfort. She has a history of partial laminectomy at L5-S1 many years ago. She states that she really wants to try and avoid surgery but she just wants to feel better. She also able to walk further and stand longer. Previous physical therapy did not help. Anti-inflammatory medications do not help. She is eager to see what the MRI shows and what her options are. Previous bilateral L5-S1 transforaminal epidural steroid injection gave her over 50% relief for over 3 months. She did well with this. Other conservative treatments have failed. Therapy did not give her any long-term relief and anti-inflammatory medications do not give her any long-term relief. Health Status Allergies: Allergic Reactions (Selected) No Known Allergies, Allergies (1) Active Reaction No Known Allergies None Documented Current medications: (Selected) Documented Medications Documented CeleXA 10 mg Tab: 10 mg = 1 tab(s), Oral, Daily, Refills(s) 0, Depression Celebrex: 200 mg, Oral, Daily, 1-2 times a day as needed for pain., Refills(s) 0, Inflammation Crestor 20 mg Tab: 20 mg = 1 tab(s), Oral, Once a day (at bedtime), Refills(s) 0, High cholesterol Metoprolol tartrate 50 mg Tab: 50 mg = 1 tab(s), Oral, BID, Refills(s) 0, High blood pressure Multi Vitamins oral tablet: 1 tab(s), Oral, Daily, Prophylaxis Protonix: 40 mg, Oral, Daily, Refills(s) 0, Control of stomach acid aspirin 81 mg oral capsule: 81 mg = 1 cap(s), Oral, Daily, Refills(s) 0 levothyroxine 112 mcg (0.112 mg) Tab: 112 mcg = 1 tab(s), Oral, Daily, Refills(s) 0, Thyroid lisinopril: 10 mg, Oral, Daily, Refills(s) 0, High blood pressure Problem list: All Problems Arthritis / SNOMED CT 8338051852 / Confirmed Hypothyroidism / SNOMED CT 495632089 / Confirmed Acid reflux / SNOMED CT 813894159 / Confirmed Osteoarthritis / SNOMED CT 2241090128 / Confirmed MISAEL (generalized anxiety disorder) / SNOMED CT 89002561 / Confirmed DDD (degenerative disc disease), lumbar / SNOMED CT 05813887 / Confirmed Spondylolisthesis, lumbar region / SNOMED CT 4157817945 / Confirmed Fibrocystic breast disease / SNOMED CT 88238742 / Confirmed Uterine fibroid / SNOMED CT 319277053 / Confirmed Hyperlipidemia / SNOMED CT 04388048 / Confirmed Depression / SNOMED CT 47018944 / Confirmed Sleep apnea / SNOMED CT 357156770 / Confirmed Diverticulosis / SNOMED CT 4651735780 / Confirmed BMI 31.0-31.9,adult / SNOMED CT 693209710 / Confirmed Positive colorectal cancer screening using Cologuard test / SNOMED CT 5562334346 / Confirmed Chronic GERD / SNOMED CT 056332135 / Confirmed Anemia / SNOMED CT 629703179 / Confirmed Resolved: cholesterol Resolved: HTN (hypertension) / SNOMED CT 7930155420 Canceled: Carpal tunnel syndrome / SNOMED CT 39307799 Objective Vital Signs 10/27/2022 9:03 EDT Peripheral Pulse Rate 63 bpm Respiratory Rate 18 br/min Systolic Blood Pressure 138 mmHg Diastolic Blood Pressure 87 mmHg Mean Arterial Pressure, Cuff 104 mmHg General: Alert and oriented, No acute distress. Overweight Eye: Normal conjunctiva. HENT: Normocephalic, Normal hearing. Cardiovascular: No edema. Musculoskeletal Normal range of motion. Normal strength. 5/5 lower extremity strength other than left hip flexion, ADF, and EHL 4+ to 5 -/5 Positive straight leg raise bilaterally Integumentary: Warm, Dry, [place]. Neurologic: Alert, Oriented. Psychiatric: Cooperative, Appropriate mood & affect. Results Review * Final Report * Reason For Exam M54.17 M48.062 POWERSCRIBE REPORT IMPRESSION: DEGENERATIVE AND POSTOPERATIVE CHANGES, SUBSTANTIALLY SIMILAR TO 09/21/2017, DESCRIBED IN DETAIL. EXAM: MRI Spine Lumbar w/ + w/o Contrast DATE: 09/19/2022 CLINICAL HISTORY: M54.17 M48.062. COMPARISON: Lumbar spine MRI 09/21/2017 and lumbosacral spine radiographs 03/16/2022. TECHNIQUE: Multiplanar MR imaging of the lumbar spine was performed before and after intravenous administration of approximately 10 mL of MultiHance gadolinium contrast. FINDINGS: The spine is visualized from T11-12 through S2, on the diagnostic sagittal sequences. Alignment: Lumbar lordosis is maintained. Mild retrolisthesis of L1 over L2, L2 over L3, and L5 over S1 of approximat (more content not included)... [facility] Comment on above: Result Comment: amadou hernandez provider for sign off Electronically Signed By: Zahra Amador PA-C\.br\Date and Time Signed: 10/27/22 09:27 EDT\.br\Electronically Co-Signed By: Alvaro Noel MD Office/Clinic Note-Physician on 10-27-2022 Office/Clinic Note-Physician [id number] 2#1.00CD:127 [facility] Patient Correspondenceon Patient Correspondence [id number] 7#1.00CD:127 [facility] Patient Correspondence [id number] 7#1.00CD:127 [facility] Patient History Officeon Patient History Office [id number] 9#1.00CD:127 [facility] Outside Records Officeon Outside Records Office [id number] 1#1.00CD:127 [facility] MRI Spine Lumbar w/ + w/o Co ntraston 09-23-2022 MRI Spine Lumbar w/ + w/o Contrast Exam Date/Time: 09/19/2022 09:06 EDT Reason for Exam: M54.17 M48.062 Report IMPRESSION: DEGENERATIVE AND POSTOPERATIVE CHANGES, SUBSTANTIALLY SIMILAR TO 09/21/2017, DESCRIBED IN DETAIL. EXAM: MRI Spine Lumbar w/ + w/o Contrast DATE: 09/19/2022 CLINICAL HISTORY: M54.17 M48.062. COMPARISON: Lumbar spine MRI 09/21/2017 and lumbosacral spine radiographs 03/16/2022. TECHNIQUE: Multiplanar MR imaging of the lumbar spine was performed before and after intravenous administration of approximately 10 mL of MultiHance gadolinium contrast. FINDINGS: The spine is visualized from T11-12 through S2, on the diagnostic sagittal sequences. Alignment: Lumbar lordosis is maintained. Mild retrolisthesis of L1 over L2, L2 over L3, and L5 over S1 of approximately 2 to 3 mm, and anterolisthesis of L4 over L5 approximately 5 to 6 mm and 2 mm L3-4 Vertebral body heights and remaining alignment are within normal limits. Bone marrow signal/fracture: Unremarkable. No abnormal enhancement identified. Conus: The conus is within normal limits of signal intensity and morphology. Paraspinal soft tissues: Paraspinal soft tissues are unremarkable. Lower thoracic spine: Visualized lower thoracic canal and foramina are without significant narrowing. L1-2: Mild disc space narrowing, moderate diffuse disc bulging and mild to moderate hypertrophic facet and ligamentum flavum changes, with mild central spinal stenosis and neural foraminal narrowing. L2-3: Mild disc space narrowing, moderate diffuse disc bulging and mild to moderate hypertrophic facet and ligamentum flavum changes, with mild central spinal stenosis and borderline neural foraminal narrowing. L3-4: Moderate diffuse disc bulge and moderate to marked hypertrophic facet and ligamentum flavum changes, with marked central spinal stenosis and moderate bilateral neural foraminal narrowing, greater on the right. Report L4-5: Moderate diffuse disc bulge and moderate to marked hypertrophic facet and ligamentum flavum changes, with moderate to marked central spinal stenosis and bilateral neural foraminal narrowing. L5-1: Previous left laminectomy, unchanged. Moderate to marked disc space narrowing, mild to moderate posterolateral endplate osteophytosis with associated broad-based disc protrusion and mild to moderate hypertrophic facet and ligamentum flavum changes, which results in moderate to marked left neural foraminal narrowing. Sacrum and iliac wings: Unremarkable. Ordering Provider: Leonidas Segura FINAL REPORT Dictated: 09/23/2022 2:04 pm Misha Rose MD Signed (Electronic Signature): 09/23/2022 2:04 pm Signed by: Misha Rose MD Transcribed by: TEQUILA Technologist: YOJANA Technical Comments MultiHance Contrast amount in ml's: 18 [facility] Consent for Treatmenton 08-29 Consent for Treatment [id number] #1.00CD:127 [facility] Creatinineon 09-19-2022 Creatinine [Mass/Vol] 0.5 mg/dL Normal 0.5-1.3 [facility] Comment on above: Performed By: #### 2 [id number], [id number] ####[facility] [address] [place] [address] RAD - MRI Screening Formon 0 09-19-2022 RAD - MRI Screening Form [id number] 0#1.00CD:127 [facility] eGFRon 09-19-2022 GFR/1.73 sq M.predicted among non-blacks MDRD (S/P/Bld) [Vol rate/Area] 105 mL/min/1.73 m2 Normal >=59 [facility] Comment on above: Order Comment: Order added by Discern Expert. Result Comment: Saxophone Player nathan kidney disease could be indicated at eGFR's of less than 60 mL/min/1.73m2. Kidney failure is indicated at less than 15 mL/min/1.73m2. Performed By: #### 2 [id number], [id number] ####[facility] [address] [place] [address] Physician Orderon 09-18-2022 Physician Order [id number] 4#1.00CD:127 [facility] Insurance Correspondence Off iceon 09-16-2022 Insurance Correspondence Office [id number] #1.00CD:127 [facility] Physician Orderon 09-16-2022 Physician Order [id number]# 1.00CD:127 [facility] Physician Order [id number] #1.00CD:127 [facility] Consent for Treatmenton 08-28 Consent for Treatment [id number] #1.00CD:127 [facility] Consultation Noteon 09-12-19 Consultation Note Chief complaint: Low back and leg pain History of present illness: This is a 61-year-old female here for a chief complaint of severe low back and leg pain. The patient rates the pain as a 4 to an 8 out of 10. She last underwent a bilateral L5 transforaminal epidural steroid injection in February of last year. She obtained 50% pain relief and functional improvement for 3 months. Over the past 3 months her symptoms have returned. She reports that the pain is constant but is worse with standing and walking. She can only stand for 5 minutes before she has to sit. She reports that the numbness down her left leg has increased. At times the leg will feel unstable. She does not have weakness in the right leg but does have significant pain. She has been through physical therapy for this issue previously and has maintained the home exercises which helped modestly. She does not want to have another back surgery if she can help it. She is using Celebrex which helps to a modest extent The patient denies additional neurologic symptoms or issues with bladder or bowel control. The patient's past medical, surgical, and social history along with medications and allergies were reviewed. Review of systems was done on 10 systems Physical examination: General: Pleasant white female in no acute distress. Patient appears well-nourished. Vital signs stable Head exam: Head is normocephalic and external ears are normal Neck exam: No tenderness Cardiovascular exam: No signs of poor perfusion and no peripheral edema Respiratory exam: Breathing is unlabored and there is no wheezing present Abdomen exam: Abdomen soft and nondistended Back exam: Bilateral lumbar paraspinal tenderness Musculoskeletal exam: Strength 5 out of 5 with exception of 4-5 with dorsiflexion of the left great toe. Positive straight leg raise bilaterally Neurologic exam: Sensation intact. Reflexes diminished but symmetric. Psych exam: Affect is appropriate. Alert and oriented Skin exam: No lesions Assessment: The patient's signs and symptoms are consistent with lumbosacral radiculopathy, lumbar stenosis with neurogenic claudication, lumbosacral spondylosis, and lumbar disc displacement. We reviewed the patient's imaging. Her x-ray from February was notable for grade 1-2 anterolisthesis of L4 and L5. Her last MRI was in 2018. Given the change in her symptoms she warrants new imaging. Oswestry disability index score was 32% OARRS report was reviewed and was appropriate Plan: We discussed options. Since she has had 3 months of increased pain in spite of adherence to home exercises and NSAIDs we will obtain a new lumbar MRI with and without contrast to evaluate for worsening stenosis. I will also write her for some formal physical therapy to fine-tune her home program but I do not think therapy alone will be sufficient. Depending on the results of the MRI we may consider another injection but if the pathology is severe she will need a surgical consultation. We discussed the potential risks and benefits of this plan and the patient was in agreement to proceed. I will see the patient for follow-up after the MRI for repeat evaluation. [facility] Comment on above: Result Comment: Elec tronically Signed By: Colton HOWE, Leonidas\.tiara\Date and Time Signed: 09/11/22 21:58 EDT Legal Correspondence Officeo n 09-11-2022 Legal Correspondence Office [id number] 8#1.00CD:127 [facility] Office/Clinic Note-Physician on 09-11-2022 Office/Clinic Note-Physician [id number] 5#1.00CD:127 [facility] Patient Correspondenceon Patient Correspondence [id number] 7#1.00CD:127 [facility] Patient Correspondence [id number] 2#1.00CD:127 [facility] Patient Correspondence [id number] 1#1.00CD:127 [facility] Patient Correspondence [id number] 3#1.00CD:127 [facility] Patient History Officeon Patient History Office [id number] 7#1.00CD:127 [facility] Physician Orderon 09-11-2022 Physician Order [id number] 0#1.00CD:127 [facility] FREE T3on 03-18-2022 FREE T3 2.18 pg/mlL Normal 2.18-3.98 [facility] Comment on above: Performed By: #### L IPID, TSH, FT3, T4 #### [facility] [address] [place] [address] Dr. Dorys Salguero LIPID PROFILEon 03-18-2022 CHOL-HDL RATIO NORM SEE BELOW [facility] Comment on above: Result Comment: 3.3 - 4.4 LOW RISK 4.4 - 7.1 AVERAGE RISK 7.1 - 11.0 MODERATE RISK >11.0 HIGH RISK Performed By: #### L IPID, TSH, FT3, T4 #### [facility] [address] [id number] [address] Dorys Salguero Cholesterol [Mass/Vol] 152 mg/dL Normal <=200 [facility] Comment on above: Performed By: #### L IPID, TSH, FT3, T4 #### [facility] [address] [address] [address] Dorys Salguero Cholesterol in HDL [Mass/Vol] 42 mg/dL Normal 40-60 [facility] Comment on above: Performed By: #### L IPID, TSH, FT3, T4 #### [facility] [address] [address] [address] Dorys Salguero Cholesterol in LDL [Mass/Vol] 72.8 mg/dL Normal [facility] Comment on above: Performed By: #### L IPID, TSH, FT3, T4 #### [facility] [address] [place] [address] Dr. Dorys Salguero Cholesterol.total/Cho lesterol in HDL [Mass ratio] 3.6 {ratio} Normal [facility] Comment on above: Performed By: #### L IPID, TSH, FT3, T4 #### [facility] [address] [address] [address] Dorys Salguero HDL NORMAL > or = 60 mg/dl - LOW CARDIOVASCULAR RISK <40 mg/dl - HIGH CARDIOVASCULAR RISK Normal [facility] Comment on above: Performed By: #### L IPID, TSH, FT3, T4 #### [facility] [address] [address] [address] Dorys Salguero LDL CALC NORMAL SEE BELOW Normal [facility] Comment on above: Result Comment: <100 mg/dl OPTIMAL 100 - 129 mg/dl NEAR OR ABOVE OPTIMAL 130 - 159 mg/dl BORDERLINE HIGH 160 - 189 mg/dl HIGH >190 mg/dl VERY HIGH Performed By: #### L IPID, TSH, FT3, T4 #### [facility] [address] [address] [address] Dorys Salguero Triglyceride [Mass/Vol] 186 mg/dL Critically high <=150 [facility] Comment on above: Performed By: #### L IPID, TSH, FT3, T4 #### [facility] [address] [address] [address] Dorys Salguero VLDL CALC 37.2 mg/dL Normal [facility] Comment on above: Performed By: #### L IPID, TSH, FT3, T4 #### [facility] [address] [address] [address] Dorys Salguero T4on 03-18-2022 T4 [Mass/Vol] 7.90 ug/dL Normal 4.80-13.90 [facility] Comment on above: Performed By: #### L IPID, TSH, FT3, T4 #### [facility] [address] [address] [address] Dorys Salguero TSHon 03-18-2022 TSH 1.689 uIU/mL Normal 0.358-3.740 [facility] Comment on above: Performed By: #### L IPID, TSH, FT3, T4 #### [facility] [address] [place] [address] Dr. Dorys Salguero Office Visit (Cardiology)on 07-11-2021 Follow-up visit Diagnoses/Problems Assessed Palpitations (785.1) (R00.2) Hyperlipidemia (272.4) (E78.5) Pre-operative cardiovascular examination (V72.81) (Z01.810) Class 1 obesity with body mass index (BMI) of 31.0 to 31.9 in adult (278.00,V85.31) (E66.9,Z68.31) Hypothyroidism (244.9) (E03.9) Never a smoker Orders Class 1 obesity with body mass index (BMI) of 31.0 to 31.9 in adult Healthy Weight Tips; Status:Complete - Retrospective Authorization; Done: [id number] Pre-operative cardiovascular examination IO EKG Electrocardiogram- 12 Lead; Status:Active - Perform Order,Retrospective Authorization; Requested for:[id number]; SocHx: Never a smoker Tobacco Use Screening; Status:Complete; Done: [id number] Tobacco Use Screening; Status:Complete; Done: [id number] Patient Instructions By signing my name below, Shaneka Valenzuela RN,Scribe Please bring all medicines, vitamins, and herbal supplements with you when you come to the office. Prescriptions will not be filled unless you are compliant with your follow up appointments or have a follow up appointment scheduled as per instruction of your physician. Refills should be requested at the time of your visit Follow-up as needed only PATIENT MAY PROCEDE WITH SURGERY Chief Complaint GRACY QUINTANA is being seen for a cardiovascular evaluation . PIERO CARRILLO STRESS DR FU POC SURGERY NOT SCHEDULED YET. Patient is a 60-year-old female seen in cardiology consultation at the request of Dr. Lee for preoperative risk assessment and evaluation of abnormal treadmill stress test. Patient would like to proceed with elective right total hip replacement. She and her ambulate at least 3 less than 5 miles 4-5 times a week walking in the local park as well as around the local town. She describes no chest heaviness, pressure discomfort with this type of leisurely walking activity. There is no prior history of myocardial infarction, revascularization, stroke, thromboembolic or bleeding disorder. Her only complaint is palpitations that seem to occur on a sporadic daily to weekly basis. They are not sustained, she describes no history of true arrhythmia or atrial fibrillation in the past Recent stress testing was performed details of the treadmill stress test and ECG assessment revealed ST/T wave changes in recovery in lead III as well as V2 and V3 without reciprocal changes. Her perfusion scan was completely normal at ejection fraction of 83%. While on the treadmill she did not describe any chest discomfort other than simply exertional dyspnea on the Perez protocol (completely normal) Today's ECG demonstrates sinus bradycardia but is otherwise completely normal. She is treated for hypertension with lisinopril, metoprolol for her palpitations that have been going on for several years (nothing new) rosuvastatin for cholesterol and Synthroid for hypothyroidism. She otherwise presents to orthopedic surgery is very low risk for any major adverse cardiac events with revised Prabhakar criteria of 0.9% or very low risk. I do not believe she warrants any further imaging or testing at this time as she is so asymptomatic and exercises greater than or equal to 7 METs with walking on a daily basis. We did student counsellor her on dietary discretion, weight loss and exercise following her hip replacement, we will follow-up as needed. Surgical History Problems History of Back surgery History of Foot surgery History of Knee replacement History of Laparoscopy History of Laparotomy Past Medical History Problems History of chest pain (V13.89) (Z87.898) Resolved Date: 11 Jul 2021 Current Meds Medication NameInstruction Celecoxib 200 MG Oral CapsuleTAKE 1 CAPSULE TWICE DAILY NEEDED. Lisinopril 10 MG Oral TabletTAKE 1 TABLET DAILY. Magnesium 500 MG Oral TabletTake 1 tablet daily Metoprolol Tartrate 50 MG Oral TabletTAKE 1 TABLET EVERY 12 HOURS DAILY. Multi Vitamin Oral TabletTAKE 1 TABLET DAILY. Pantoprazole Sodium 40 MG Oral Tablet Delayed ReleaseTAKE 1 TABLET DAILY. Rosuvastatin Calcium 20 MG Oral TabletTAKE 1 TABLET DAILY. Synthroid 112 MCG Oral TabletTAKE 1 TABLET DAILY. Vitamin C 500 MG Oral CapsuleTAKE 1 CAPSULE Daily Allergies Medication No Known Drug Allergies Recorded By: Erica Slaughter; 07/11/2021 10:57:52 AM Family History Mother Family history of diabetes mellitus (V18.0) (Z83.3) Family history of hypertension (V17.49) (Z82.49) Family history of myocardial infarction (V17.3) (Z82.49) Family history of H/O heart bypass surgery Father Family history of congestive heart failure (V17.49) (Z82.49) Family history of diabetes mellitus (V18.0) (Z83.3) Family history of hypertension (V17.49) (Z82.49) Family history of leukemia (V16.6) (Z80.6) Sibling Family history of malignant neoplasm (V16.9) (Z80.9) Social History Problems Caffeine use (V49.89) (Z78.9) 1/2 CUP COFFEE DAILY 1 CAN DIET SODA DAILY Never a smoker No illicit drug use Social alcohol use (V49.89) (Z78.9) 1 G (more content not included)... Normal [facility] Tobacco Screening.on 022 Adult depression screening assessment No [facility] 250 DO Work Phone: Tobacco use status [facility] b) No [facility] 250 DO Work Phone: Adult depression screening assessment No [facility] 250 DO Work Phone: Tobacco use status [facility] b) No [facility] 250 DO Work Phone: NM STRESS/REST MULTIon 07-08 NM STRESS/REST MULTI Patient: DESIRE QUINTANA Exam Date: 07/08/2021 : 1960 Gender:F Ordering : DR LUCRETIA LEE . Admission #: [id number] Family : Order #: [id number] CLICK HERE TO VIEW EXAM RADIOLOGY REPORT PROCEDURE: RADIONUCLIDE IMAGING STRESS/REST MULTI COMPARISON: NM STRESS/REST MULTI, 02/03/2020. INDICATIONS: Chest pain, palpitations TECHNIQUE: Exam Description: Stress/Rest one day protocol gated SPECT Rest Imagin.2 mCi Tc-99m Cardiolite IV on 07/08/2021 Stress Imaging 30.1 mCi Tc-99m Cardiolite IV on 07/08/2021 Exercise Protocol: Perez Heart Rate (bpm): Rest: 58 Max: 133 PMHR: 84 Blood Pressure: Rest: 138/80 Max: 206/108 Exercise Time: Minutes: 8 Seconds: 30 Stage Reached: Stage: 3 Mets 7.4 Symptoms: Rest and peak stress ECG findings were abnormal and the exercise portion of the study was abnormal per attending physician Dr. Crocker due to EKG changes. For more details please see separate cardiac stress test report. FINDINGS: QUALITY OF STUDY: Excellent. PERFUSION DEFECT: None. LOCATION: N/A SIZE: N/A. SEVERITY: N/A. TYPE: N/A. WALL MOTION: Normal. LV SIZE: Normal. 90 mL. TID / TCD: None; 0.7 LVEF: Normal. Calculated EF 83%. SUMMARY: Myocardial perfusion imaging study is NORMAL. CONCLUSION: 1. Normal myocardial perfusion scan with no reversible ischemia 2. Abnormal exercise test secondary to EKG changes Dictated by: Dane Flores MD on 07/08/2021 at 12:01 Approved by: Dane Flores MD on 07/08/2021 at 12:03 Normal [facility] Vital Signs Date Time Vital Sign Value Performing Clinician Facility 12-24-2022 08:00-0400 Body height 165.1 cm Getourguides Other [employer] Other 12-24-2022 08:00-0400 Body mass index (BMI) [Ratio] 32.45 kg/m2 JunieE Inks Other [employer] Other 12-24-2022 08:00-0400 Body weight 88.45 kg Junie Blades Other [facility] Other 12-24-2022 08:00-0400 Diastolic blood pressure 70 mm[Hg] Junie Blades Other [place] [facility] Other 12-24-2022 08:00-0400 Systolic blood pressure 104 mm[Hg] Junie Blades Other [facility] Other 07-11-2021 11:08-0400 Body height 165.1 cm Lucretia M Hoy Work Phone: [facility] 250 DO Work Phone: 07-11-2021 11:08-0400 Body mass index (BMI) [Ratio] 31.38 kg/m2 Lucretia M Hoy Work Phone: [facility] 250 DO Work Phone: 07-11-2021 11:08-0400 Body surface area Derived from formula 1.93 m2 Lucretia M Hoy Work Phone: [facility] 250 DO Work Phone: 07-11-2021 11:08-0400 Body weight 85.55 kg Lucretia M Hoy Work Phone: [facility] 250 DO Work Phone: 07-11-2021 11:08-0400 Diastolic blood pressure 80 mm[Hg] Lucretia M Hoy Work Phone: [facility] [facility] DO Work Phone: 07-11-2021 11:08-0400 Heart rate 57 /min Lucretia M Hoy Work Phone: [facility] [facility] DO Work Phone: 07-11-2021 11:08-0400 Systolic blood pressure 118 mm[Hg] Lucretia M Hoy Work Phone: [facility] 250 DO Work Phone: 07-11-2021 11:01-0400 Body height 165.1 cm Lucretia Ashly Hoy Work Phone: [facility] [facility] DO Work Phone: 07-11-2021 11:01-0400 Body mass index (BMI) [Ratio] 31.38 kg/m2 Lucretia Ashly Hoy Work Phone: [facility] 250 DO Work Phone: 07-11-2021 11:01-0400 Body surface area Derived from formula 1.93 m2 Lucretia Ashly Hoy Work Phone: [facility] 250 DO Work Phone: 07-11-2021 11:01-0400 Body weight 85.55 kg Lucretia Limon Hoy Work Phone: [facility] [facility] DO Work Phone: 07-11-2021 11:01-0400 Diastolic blood pressure 80 mm[Hg] Lucretia Ashly Hoy Work Phone: [facility] 250 DO Work Phone: 07-11-2021 11:01-0400 Heart rate 57 /min Lucretia Ashly Hoy Work Phone: [facility] [facility] DO Work Phone: 07-11-2021 11:01-0400 Systolic blood pressure 130 mm[Hg] Lucretia Ashly Hoy Work Phone: [facility] 250 DO Work Phone: Encounters Encounter Date Encounter Type Care Provider Facility Start: 11-24-2023 End: 11-24-2023 ambulatory KRISTAL CHAUHAN Not Available Start: 07-22-2023 End: 07-23-2023 ambulatory Lucretia Levyy [place] [place] Start: 02-10-2023 End: 02-10-2023 ambulatory ZOË FU Not Available Start: 02-10-2023 End: 02-10-2023 ambulatory ZOË FU Not Available Start: 12-24-2022 End: 12-24-2022 ambulatory Junie Samuel Other [facility] Other Start: 12-24-2022 Office outpatient ne w 45 minutes Junie Samuel [facility] Start: 11-19-2022 End: 11-20-2022 ambulatory MD Leonidas Segura Facility:[facility] [place] Start: 10-27-2022 End: 10-28-2022 ambulatory LEVI Amador Facility:[facility] [place] Start: 09-19-2022 End: 09-20-2022 ambulatory Leonidas Segura Facility:[facility] [place] Start: 09-11-2022 End: 09-12-2022 ambulatory MD Leonidas Segura Facility:[facility] [place] Start: 03-18-2022 End: 03-19-[address] LUCRETIA LEE Facility: Start: 07-11-2021 Office consultation new/estab patient 60 min Lucretia M Hoy Work Phone: [facility] 250 DO Work Phone: Start: 07-08-2021 End: 07-09-[address] LUCRETIA LEE Facility:H1 Patient encounter status Lucretia M Hoy Work Phone: [facility] [facility] DO Work Phone: Procedures Date Procedure Procedure Detail Performing Clinician Arthroplasty of knee Lucretia M Hoy Work Phone: Laparoscopy Lucretia M Hoy Work Phone: Laparotomy Lucretia M Hoy Work Phone: Operative procedure on foot Lucretia M Hoy Work Phone: Procedure on back Lucretia M Hoy Work Phone: Immunizations Immunization Date Immunization Notes Care Provider Ammy white 02-06-2021 Influenza, injectabl e, Madin [place] Canine Kidney, preservative free, quadrivalent Lucretia M Hoy Work Phone: [facility] 250 DO Work Phone: 07-05-2020 Moderna COVID-19 Vac cine 100 MCG/0.5ML Intramuscular Suspension Lucretia M Hoy Work Phone: [facility] [facility] DO Work Phone: 06-07-2020 Moderna COVID-19 Vac cine 100 MCG/0.5ML Intramuscular Suspension Lucretia M Hoy Work Phone: [facility] 250 DO Work Phone: 01-23-2020 Influenza, injectabl e, Madin Colleen Canine Kidney, preservative free, quadrivalent Lucretia M Hoy Work Phone: [facility] 250 DO Work Phone: 01-12-2017 influenza, injectabl e, quadrivalent, preservative free Lucretia M Hoy [facility] Phone: [facility] Work Phone: 01-16-2009 novel influenza-H1N1 -09, preservative-free, injectable Lucretia M Hoy Work Phone: [facility] 250 DO Work Phone: Payers Date Payer Category Payer Medicare [id number] 2023 Unknown [id number] 1961 Private Health Insurance [id number] 1960 Unknown [id number] 1958 Unknown [id number]. [id number] 1958 Unknown [id number] [id number]. 727 1958 Unknown [id number] [id number]. 727 1958 Unknown [id number] [id number]. 727 1958 Unknown [id number] [id number]. 7 1958 Unknown [id number] [id number]. 1958 Unknown [id number] 2.16.840.1.060160.3.579.2. 9 1958 Unknown [id number] [id number]. 1258 1958 Unknown [id number] 2.16.840.1.727266.3.579.2. 9 1958 Unknown [id number] [id number]. 1258 Unknown [facility] Social History Date Type Detail Facility Caffeine use Caffeine use [facility] [employer] 911 DO Work Phone: Comment on above: 1/2 CUP COFFEE DAILY 1 CAN DIET SODA DAILY; 1 GLASS WINE AND 1 B EER; Sex Assigned At Sex Assigned At [facility] [employer] Other Evaluation note 12-24-2022 Note Date & Type Note Facility 12-24-2022 Evaluation note Encounter Date Diagnosis Assessment Notes Nov, Lumbar stenosis with neurogenic claudication (ICD-10 - M48.062) [employer] Other Clinical Note 11-20-2022 Note Date & Type Note Facility 11-20-2022 Note Procedure: Bilateral lumbar transforaminal epidural steroid injection under fluoroscopic guidance of the left L5 nerve root at the left L5-S1 foramen and of the right L5 nerve root at the right L5-S1 foramen Diagnosis: [] Solution: 1 mL of lidocaine 2%, 3 mL normal saline, and 1 mL of Kenalog 40 mg. 5 mL total. 2.5 mL per site Contrast: 1 mL of [] per site Local anesthetic: 2 mL of lidocaine 1% per site Anesthesia: Local Complications: None Notes: The patient has a greater than 2-month history of severe low back and leg pain. The patient has had 6 weeks of conservative management with therapy exercises and medications. The patient does not desire spine surgery. The patient is compliant with a home exercise program for this issue. The patient's imaging is notable for severe spinal stenosis at L3-4 and L4-L5. Her symptoms are consistent with impingement of the left and right L5 nerve roots which correlates with this imaging. She has a previous laminectomy contraindicates an interlaminar approach so because she has bilateral symptoms procedure was performed at the L5-S1 foramen bilaterally. The pain significantly limits the patient's quality of life and function. Specifically she can only stand for 5 minutes before she has to sit. After informed consent was obtained the patient was brought to the OR and placed in the prone position. The area in question was prepped and draped in sterile fashion. An ipsilateral oblique fluoroscopic view of the lumbar spine was obtained and after local anesthetic was administered into the skin a 22-gauge Chiba needle was inserted into the skin and advanced to the 6 clock position beneath the left and right L5 pedicles under intermittent fluoroscopic guidance. Proper needle position was confirmed by AP and lateral fluoroscopy. Contrast was administered under live fluoroscopy at both sites in both views and demonstrated appropriate epidural and nerve root uptake and the absence of any intravascular or intrathecal spread. The local anesthetic steroid solution was injected incrementally at each site. The 2 needles were removed intact. Bleeding was nil. The patient tolerated the procedure well and was transferred to the recovery room in good condition. [facility] Comment on above: Result Comment: Elec tronically Signed By: Colton HOWE, Leonidas\.tiara\Date and Time Signed: 11/19/22 20:58 EDT Clinical Note 11-20-2022 Note Date & Type Note Facility 11-20-2022 Note Procedure: Bilateral lumbar transforaminal epidural steroid injection under fluoroscopic guidance of the left L5 nerve root at the left L5-S1 foramen and of the right L5 nerve root at the right L5-S1 foramen Diagnosis: Lumbosacral radiculopathy Solution: 1 mL of lidocaine 2%, 3 mL normal saline, and 1 mL of Kenalog 40 mg. 5 mL total. 2.5 mL per site Contrast: 1 mL of Isovue per site Local anesthetic: 2 mL of lidocaine 1% per site Anesthesia: Local Complications: None Notes: The patient has a greater than 2-month history of severe low back and leg pain. The patient has had 6 weeks of conservative management with therapy exercises and medications. The patient does not desire spine surgery. The patient is compliant with a home exercise program for this issue. The patient's imaging is notable for severe spinal stenosis at L3-4 and L4-L5. Her symptoms are consistent with impingement of the left and right L5 nerve roots which correlates with this imaging. She has a previous laminectomy contraindicates an interlaminar approach so because she has bilateral symptoms procedure was performed at the L5-S1 foramen bilaterally. The pain significantly limits the patient's quality of life and function. Specifically she can only stand for 5 minutes before she has to sit. After informed consent was obtained the patient was brought to the OR and placed in the prone position. The area in question was prepped and draped in sterile fashion. An ipsilateral oblique fluoroscopic view of the lumbar spine was obtained and after local anesthetic was administered into the skin a 22-gauge Chiba needle was inserted into the skin and advanced to the 6 clock position beneath the left and right L5 pedicles under intermittent fluoroscopic guidance. Proper needle position was confirmed by AP and lateral fluoroscopy. Contrast was administered under live fluoroscopy at both sites in both views and demonstrated appropriate epidural and nerve root uptake and the absence of any intravascular or intrathecal spread. The local anesthetic steroid solution was injected incrementally at each site. The 2 needles were removed intact. Bleeding was nil. The patient tolerated the procedure well and was transferred to the recovery room in good condition. [facility] Comment on above: Result Comment: Elec tronically Signed By: Colton HOWE, Leonidas\.tiara\Date and Time Signed: 11/20/22 18:48 EDT History and physical note 11-19-2022 Note Date & Type Note Facility 11-19-2022 Note [id number] 0#[id number]:127 [facility] Chief complaint Narrative - Reported Note Date & Type Note Facility Chief complaint Narrative - Reported GRACY QUINTANA is being seen for a cardiovascular evaluation . PIERO CARRILLO STRESS DR FU POC SURGERY NOT SCHEDULED YET.Patient is a 60-year-old female seen in cardiology consultation at the request of Dr. Lee for preoperative risk assessment and evaluation of abnormal treadmill stress test. Patient would like to proceed with elective right total hip replacement.She and her ambulate at least 3 less than 5 miles 4-5 times a week walking in the local park as well as around the local town. She describes no chest heaviness, pressure discomfort with this type of leisurely walking activity.There is no prior history of myocardial infarction, revascularization, stroke, thromboembolic or bleeding disorder.Her only complaint is palpitations that seem to occur on a sporadic daily to weekly basis. They are not sustained, she describes no history of true arrhythmia or atrial fibrillation in the pastRecent stress testing was performed details of the treadmill stress test and ECG assessment revealed ST/T wave changes in recovery in lead III as well as V2 and V3 without reciprocal changes. Her perfusion scan was completely normal at ejection fraction of 83%. While on the treadmill she did not describe any chest discomfort other than simply exertional dyspnea on the Perez protocol (completely normal)Today's ECG demonstrates sinus bradycardia but is otherwise completely normal. She is treated for hypertension with lisinopril, metoprolol for her palpitations that have been going on for several years (nothing new) rosuvastatin for cholesterol and Synthroid for hypothyroidism.She otherwise presents to orthopedic surgery is very low risk for any major adverse cardiac events with revised Prabhakar criteria of 0.9% or very low risk.I do not believe she warrants any further imaging or testing at this time as she is so asymptomatic and exercises greater than or equal to 7 METs with walking on a daily basis. We did student counsellor her on dietary discretion, weight loss and exercise following her hip replacement, we will follow-up as needed. -[facility] [employer] DO Work Phone: History general Narrative - Reported Note Date & Type Note Facility History general Narrative - Reported Type Medical History Arthritis Medical History Thyroid disease Medical History Depression Medical History high cholesterol Medical History obesity Medical History high blood pressure Medical History anxiety Surgical History Procedure:Meniscus Surgery;Disease: 2004 Surgical History Procedure:B/L bunionectomy;Disease: 1983 Surgical History Procedure:laparotomy;Disease: 1 984 Surgical History Procedure:Laminectom y L5-S1- Dr. Chester 2004 Surgical History Procedure:bunionecto my/hammertoe repair;Disease: 2008 Surgical History R TKA MTP 06/10/2016 Hospitalization History See Sx [employer] Other Family History No Family History Records FoundUnknown Family Member Name Dates Details Family history of diabetes m ellitus: Mother, Father(V18.0, Z83.3) Status:Active Family history of hypertensi on: Mother, Father(V17.49, Z82.49) Status:Active Family history of myocardial infarction: Mother(V17.3, Z82.49) Status:Active H/O heart bypass surgery: Mo ther(V45.81, Z95.1) Status:Active Family history of congestive heart failure: Father(V17.49, Z82.49) Status:Active Family history of leukemia: Father(V16.6, Z80.6) Status:Active Family history of malignant neoplasm: Sibling(V16.9, Z80.9) Status:Active Summary Purpose Advance Directives No Advanced Directives Records FoundNo Advanced Directives Records FoundNo Advanced Directives Records FoundNo Advanced Directives Records Found Additional Source Comments INFORMATION SOURCE (unrecogn ized section and content) DATE CREATED AUTHOR 07/12/2021 [employer] DATE CREATED AUTHOR AUTHOR'S ORGANIZ ATION 03/26/2022 [facility] DATE CREATED AUTHOR AUTHOR'S ORGANIZ ATION 07/27/2023 [facility] DATE CREATED AUTHOR AUTHOR'S ORGANIZ ATION 11/25/2023 [facility] EPIC REASON FOR VISIT (unrecogniz ed section and content) referred by Zahra Amador, Buttock and leg pain FOR RECORDS PERTAINING TO PATIENTS WHO ARE OR HAVE BEEN ENROLLED IN A CHEMICAL DEPENDENCY/SUBSTANCEABUSE PROGRAM, SOME INFORMATION MAY BE OMITTED. This clinical summary was aggregated from multiple sources. Caution should be exercised in using it in the provision of clinical care. This summary normalizes information from multiple sources, and as a consequence, information in this document may materially change the coding, format and clinical context of patient data. In addition, data may be omitted in some cases. CLINICAL DECISIONS SHOULD BE BASED ON THE PRIMARY CLINICAL RECORDS. [employer] provides no warranty or guarantee of the accuracy or completeness of information in this document.
[2023-12-04 16:50] LABS: Basophils Absolute Auto 0.1 10^3/uL (0.0-0.1); Basophils Percent Auto 0.8 % (0.2-2.0); Eosinophils Absolute Auto 0.2 10^3/uL (0.0-0.7); Eosinophils Percent Auto 2.4 % (0.9-7.0); Hematocrit 37.8 % (36.0-48.0); Immature Granulocytes Abs Auto 0.02 10^3/uL (0.00-0.03); Immature Granulocytes Pct Auto 0.3 % (0.0-0.5); Lymphocytes Absolute Auto 1.9 10^3/uL (1.2-3.8); Lymphocytes Percent Auto 30.4 % (20.5-60.0); Mean Corpuscular HGB Conc 31.7 g/dL (29.9-35.2); Mean Corpuscular Volume 84.9 fL (81.0-99.0); Mean Platelet Volume 10.3 fL (9.5-13.5); Monocytes Absolute Auto 0.7 10^3/uL (0.3-0.8); Monocytes Percent Auto 10.2 % (1.7-12.0); Neutrophils Absolute Auto 3.6 10^3/uL (1.4-6.5); Neutrophils Percent Auto 55.9 % (43.0-75.0); Platelet Count 276 10^3/uL (150-450); Red Blood Count 4.45 10^6/uL (4.20-5.40); Red Cell Distribution Width 15.9 % (11.0-15.0); White Blood Count 6.4 10^3/uL (4.0-11.0)
[2023-12-04 16:52] LABS: Alanine Aminotransferase 61 U/L (14-59); Albumin Globulin Ratio 1.1; Albumin Level 3.5 g/dL (3.4-5.0); Alkaline Phosphatase 92 U/L (46-116); Anion Gap 9.8; Aspartate Amino Transferase 41 U/L (15-37); BUN Creatinine Ratio 18.6; Bilirubin Total 0.5 mg/dL (0.2-1.0); C Reactive Protein <0.50 mg/dL (<=0.50); Calcium 9.1 mg/dL (8.5-10.1); Carbon Dioxide 30.9 mmol/L (21.0-32.0); Chloride 102 mmol/L (98-107); Estimated GFR (African America >60 (>=60); Estimated GFR (Non-African Ame >60 (>=60); Free T3 2.94 pg/mL (2.18-3.98); Globulin 3.2 g/dL; Glucose 78 mg/dL (74-106); Potassium 3.7 mmol/L (3.5-5.1); Sodium 139 mmol/L (136-145); Thyroid Stimulating Hormone 0.044 uIU/mL (0.358-3.740); Total Protein 6.7 g/dL (6.4-8.2)
[2023-12-04 16:57] LABS: Erythrocyte Sedimentation Rate 17 mm/hr (<=30)
[2023-12-06 08:09] LABS: Antistreptolysin O Ab <20.0 IU/mL (0.0-200.0); Rheumatoid Factor (RF) <10.0 IU/mL (<14.0)
[2023-12-08 17:08] LABS: Antinuclear Antibodies, IFA Negative (.)
== END 2023-12-04 15:43 | disposition home or self-care (01) ==
PROVIDERS: PCP Family Medicine; Visit Provider Family Medicine
DX: M25.50 Pain in unspecified joint (principal); E55.9 Vitamin D deficiency, unspecified
CPT/HCPCS: 36415; 80053; 82306; 84436; 84443; 84481; 84550; 85025; 85652; 86038; 86060; 86140; 86431

== ENCOUNTER 2024-12-20 09:15 | Outpatient (OUT) | payer MEDICARE, SELFPAY ==
--- OUTSIDE RECORDS SUMMARY | 2024-12-20 09:20 | XMS_ITS | Clinical Summary ---
Author Organization [facility] Address [address] [place] [id number] Phone Care Team Providers Care Recreation Programmer Name Role Phone Jaciel Lee MD Primary Care Provider [phone] Social History Tobacco Use Types Packs/Day Years Used Date Smoking Tobacco: Never Assessed Comments Unknown Sex and Gender Information Value Date Recorded Sex Assigned at Not on file Legal Sex Female 2:09 PM EST Gender Identity Not on file Sexual Orientation Not on file Last Filed Vital Signs Vital Sign Reading Time Taken Comments Blood Pressure 118/80 07/11/2021 11:08 AM EDT Pulse 57 07/11/2021 11:08 AM EDT Temperature - - Respiratory Rate - - Oxygen Saturation - - Inhaled Oxygen Concentration - - Weight 85.5 kg (188 lb 9.6 oz) 07/11/2021 11:08 AM EDT Height 165.1 cm (5' 5 ) 07/11/2021 11:08 AM EDT Body Mass Index 31.38 07/11/2021 11:08 AM EDT Plan of Treatment Not on file Care Teams Recreation Programmer Relationship Specialty Start Date End Date Jaciel Lee MD [address] [place] [address] PCP - General 07/11/21
--- OUTSIDE RECORDS SUMMARY | 2024-12-20 09:22 | XMS_ITS | CCD ---
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 Name Role Phone Lucretia Lee Unavailable Unavailable Unavailable PIERO, DR BOYKIN Admitting Unavailable PIERO, DR BOYKIN Attending Unavailable PIERO, DR BOYKIN Primary Care Unavailable PIERO, DR BOYKIN Consulting Unavailable WEST, DR DANE Shea Consulting Unavailable PIERO, DR BOYKIN Admitting Unavailable PIERO, DR BOYKIN Attending Unavailable PIERO, DR BOYKIN Primary Care Unavailable PIERO, DR BYOKIN Consulting Unavailable Rin Samuelorah Unavailable Lucretia Lee MD Primary Care Provider [phone] Lucretia Lee Attending Unavailable Lucretia Lee Referring Unavailable Lucretia Lee Admitting Unavailable Yessica Hoffman Admitting Unavailable Yessica Hoffman Attending Unavailable Lucretia Lee MD Primary Care Provider [phone] Yessica Hoffman Attending Unavailable Yessica Hoffman Referring Unavailable Lucretia Lee Consulting Unavailable Yessica Hoffman Admitting Unavailable MD Lucretia Lee Consulting Unavailable Lucretia Lee Admitting Unavailable Lucretia Lee Attending Unavailable REDD SANDOVAL Attending Unavailable ZOË FU Referring Unavailable ZOË FU Referring Unavailable ZOË UF Attending Unavailable CINDY VALADEZ D Referring Unavailable SILVIA, CINDY Win Attending Unavailable REDD SANDOVAL Attending Unavailable REDD SANDOVAL Attending Unavailable REDD SANDOVAL Attending Unavailable REDD SANDOVAL Attending Unavailable SILVIA, CINDY Audelia Referring Unavailable SILVIA, CINDY D Attending Unavailable CINDY VALADEZ Referring Unavailable KRISTAL MILTON Attending Unavailable Medications Current Medications Medication Drug Class(es) Dates Sig (Normalized) Sig (Original) celecoxib 200 mg oral capsule (20 sources) Nonsteroidal Anti-inflammatory Drug Start: 11-17-2011 celecoxib (CeleBREX) 200 MG capsule 08/18/2022 Active citalopram 10 mg oral tablet (20 sources) Serotonin Reuptake Inhibitor take 1 tablet by mouth once daily citalopram (CeleXA) 10 MG tablet Take 10 mg by mouth Daily Active gabapentin 300 mg oral capsule (3 sources) Anti-epileptic Agent Start: 08-17-2024 gabapentin (Neurontin) 300 MG capsule Indications: Left cervical radiculopathy Take 1 capsule (300 mg) by mouth as needed at bedtime (nerve pain) 30 capsule 08/17/2024 Active levothyroxine sodium 0.112 mg oral tablet (20 sources) l-Thyroxine Start: 06-09-2022 Synthroid 112 MCG tablet 06/09/2022 Active Start: 06-14-2021 take 1 tablet by sahra once daily Synthroid 112 MCG Oral Tablet TAKE 1 TABLET DAILY. Quantity: 0 Refills: 0 Ordered: 14-Jun-2021 DO Start : 14-Jun-2021 Active take 1 capsule by mo [facility] every twenty-four hours Levothyroxine Sodium 112 MCG 1 capsule on an empty stomach in the morning Orally Once a day for 30 day(s) *please review for potential _update for e-prescription and drug interaction check* Active liothyronine sodium 0.005 mg oral tablet (9 sources) l-Triiodothyronine Start: 08-28-2023 Cytomel 5 MCG tablet 08/28/2023 Active Multivitamin preparation (1 source) Multivitamin *please review for potential _update for e-prescription and drug interaction check* Active pregabalin 100 mg oral capsule (2 sources) End: 11-24-2023 take 1 capsule by mouth twice daily pregabalin (Lyrica) 100 MG capsule (Schedule V Drug) TAKE 1 CAPSULE BY MOUTH TWICE A DAY Oral for 30 11/24/2023 Discontinued Vitamin D-Vitamin K (DosoKap) 137.5-200 MCG tablet (9 sources) Start: 06-13-2024 take 137.5-200 ug by mouth once daily Vitamin D-Vitamin K (DosoKap) 137.5-200 MCG tablet Take 1 tablet by mouth Daily 06/13/2024 Active Completed/Discontinued Medications Medication Drug Class(es) Dates [...] for e-prescription and drug interaction check* Not-Taking cephalexin 500 mg oral tablet (2 sources) Cephalosporin Antibacterial take 2 capsules by mouth every hour Keflex 500 MG 2 capsule Orally 2 capsules evening prior to appt; 2 capsules 1hr prior to appt for 1 days Not-Taking Co Q-10 (1 source) Co Q-10 *please review for potential _update for e-prescription and drug interaction check* Not-Taking diazePAM 5 mg oral tablet (5 sources) Benzodiazepine Start: 08-03-2024 End: 08-17-2024 diazePAM (Valium) 5 MG tablet Indications: Claustrophobia (CMS/HCC) 1 tab PO two hours before procedure may repeat X1 if need 30 mins before MRI for claustrophobia, No Driving for 12 hours after last Dose. Must be taken to appt by family member 2 tablet 08/03/2024 08/17/2024 Discontinued (Therapy completed) ferrous sulfate 325 mg oral tablet (19 sources) End: 07-14-2024 ferrous sulfate 325 (65 Fe) MG tablet every 12 (twelve) hours. 07/14/2024 Discontinued (Therapy completed) take 1 tablet by sahra th every twelve hours Iron 325 (65 Fe) mg 1 tablet Orally bid for 30 day(s) Not-Taking Fish Oils (1 source) [facility] Fish Oil 120 0 MG Oral *please review for potential _update for e-prescription and drug interaction check* Not-Taking lisinopril 10 mg oral tablet (20 sources) Angiotensin Converting Enzyme Inhibitor Start: 2 take 1 tablet by mouth once daily Lisinopril 10 MG Oral Tablet TAKE 1 TABLET DAILY. Quantity: 0 Refills: 0 Ordered: 14-Jun-2021 DO Start : 14-Jun-2021 Active Magnesium (20 sources) End: 5 magnesium 250 MG tablet 1 capsule with a meal Orally 07/14/2024 Discontinued (Therapy completed) magnesium 250 MG tablet 1 capsule with a meal Orally Active Magnesium 250 MG 1 capsule with a meal Orally Not-Taking take 1 tablet by mouth once samira y Magnesium 500 MG Oral Tablet Take 1 tablet daily Quantity: 0 Refills: 0 Ordered: 11-Jul-2021 DO Active metoprolol tartrate 50 mg oral tablet (20 sources) beta-Adrenergic Peterson Start: 06-27-2021 take 1 tablet by mouth once daily Metoprolol Tartrate 50 MG Oral Tablet TAKE 1 TABLET EVERY 12 HOURS DAILY. Quantity: 0 Refills: 0 Ordered: 27-Jun-2021 DO Start : 27-Jun-2021 Active metoprolol tartr ate (Lopressor) 50 MG tablet every 12 (twelve) hours Active Multi Vitamin Oral Tablet (1 source) take 1 tablet by mouth once daily Multi Vitamin Oral Tablet TAKE 1 TABLET DAILY. Quantity: 0 Refills: 0 Ordered: 11-Jul-2021 DO Active omeprazole 10 mg oral tablet (1 source) Proton Pump Inhibitor Omeprazole 10 MG Ora l *please review for potential _update for e-prescription and drug interaction check* Not-Taking pantoprazole 40 mg delayed release oral tablet (20 sources) Proton Pump Inhibitor Start: 2 take 1 tablet by mouth once daily Pantoprazole Sodium 40 MG Oral Tablet Delayed Release TAKE 1 TABLET DAILY. Quantity: 0 Refills: 0 Ordered: 14-Jun-2021 DO Start : 14-Jun-2021 Active predniSONE 10 mg oral tablet (7 sources) Start: 5 End: 5 take 5 tablets by mouth once daily, then take 4 tablets by mouth once daily, then take 3 tablets by mouth once daily, then take 2 tablets by mouth once daily, then take 1 tablet by mouth once daily predniSONE (Deltasone) 10 MG tablet Indications: Left cervical radiculopathy Take 5 tabs p.o. daily x3 days Take 4 tabs p.o. daily x3 days Take 3 tabs p.o. daily x3 days Take 2 tabs p.o. daily x3 days Take 1 tab p.o. daily x3 days 45 tablet 07/14/2024 08/17/2024 Discontinued (Therapy completed) rosuvastatin calcium 20 mg oral tablet (20 sources) HMG-CoA Reductase Inhibitor Start: 2 take 1 tablet by mouth once daily Rosuvastatin Calcium 20 MG Oral Tablet TAKE 1 TABLET DAILY. Quantity: 0 Refills: 0 Ordered: 14-Jun-2021 DO Start : 14-Jun-2021 Active Problems Active Problems Problem Classification Problem Date Documented Date Episodic/Chronic Anxiety disorders (2 sources) Claustrophobia; Translations: [Claustrophobia] 08-03-2024 Chronic Cataract (20 sources) Bilateral age-related nuclear cataracts; Translations: [Age-related nuclear cataract, bilateral] Onset: 3 11-19-2022 Chronic Disorders of lipid metabolism (2 sources) Hyperlipidemia; Translations: [Other and unspecified hyperlipidemia] Onset: 2 Chronic Inflammation; infection of eye (except that caused by tuberculosis or sexually transmitteddisease) (20 sources) 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; Translations: [Unspecified blepharitis right eye, upper and lower eyelids] Onset: 3 11-19-2022 Episodic Neoplasms of unspecified nature or uncertain behavior (2 sources) Neoplasm of uncertain behavior of skin; Translations: [Neoplasm of uncertain behavior of skin] 02-04-2024 Episodic Osteoarthritis (2 sources) Osteoarthritis of joint of right shoulder region; Translations: [Primary osteoarthritis, right shoulder] 07-14-2024 Chronic Other acquired deformities (1 source) Lumbar spondylolisthesis; Translations: [Spondylolisthesis, lumbar region] Episodic Other bone disease and musculoskeletal deformities (2 sources) Exostosis of left foot; Translations: [Other specified disorders of bone, ankle and foot] 04-05-2024 Episodic Other connective tissue disease (10 sources) Pain in left foot; Translations: [Pain in left foot] 02-04-2024 Episodic Other connective tissue disease (8 sources) Capsulitis of metatarsophalangeal joint of left foot; Translations: [Other enthesopathy of left foot and ankle] 02-04-2024 Episodic Other eye disorders (20 sources) Dry eyes; Translations: [Dry eye syndrome of bilateral lacrimal glands] Onset: 3 11-19-2022 Episodic Other non-traumatic joint disorders (2 sources) Bilateral chronic pain of upper limbs; Translations: [Pain in right shoulder] 07-11-2024 Episodic Other nutritional; endocrine; and metabolic disorders (1 source) Obesity; Translations: [Obesity, unspecified] Chronic Retinal detachments; defects; vascular occlusion; and retinopathy (20 sources) Epiretinal membrane of left eye; Translations: [Puckering of macula, left eye] Onset: 3 11-19-2022 Chronic Spondylosis; intervertebral disc disorders; other back problems (5 sources) Degeneration of lumbar intervertebral disc; Translations: [Other intervertebral disc degeneration, lumbar region] 08-03-2024 Chronic Spondylosis; intervertebral disc disorders; other back problems (6 sources) Spinal stenosis, lumbar region with neurogenic claudication; Translations: [Left cervical root neuropathy] Episodic Thyroid disorders (5 sources) Hypothyroidism; Translations: [Unspecified acquired hypothyroidism] Onset: 2 Chronic Viral infection (10 sources) Verruca plantaris; Translations: [Plantar wart] 02-04-2024 Episodic Past or Other Problems Problem Classification Problem [...] Test Name Value Interpretation Reference Range Facility Optical coherence tomography study reporton 11-25-2024 [facility] Study observation (narrative) [facility] XR Chest 2 Viewson 5 XR Chest 2 Views Exam Date/Time: 09/09/2024 11:39 EDT Reason for Exam: other Report IMPRESSION: No acute radiographic abnormality. EXAMINATION: XR Chest 2 Views Clinical History: Intermittent cough. Shortness of breath. Chest pain. Comparison: 08/12/2021. RESULT: No consolidation. No pleural effusion. No pneumothorax. Normal cardiomediastinal silhouette. No acute osseous findings. Degenerative changes. Ordering Provider: Lucretia Lee FINAL REPORT Dictated: 09/09/2024 4:01 pm Dale Yu MD. Signed (Electronic Signature): 09/09/2024 4:01 pm Signed by: Dale Yu MD Transcribed by: TEQUILA Technologist: MADHU Cadet [facility] MR CERVICAL SPINE WO CONTRAS Ton 08-05-2024 MR CERVICAL SPINE WO CONTRAST EXAMINATION/TECHNIQUE : MR CERVICAL SPINE WO CONTRAST HISTORY: Cervical radiculopathy. No known injury. Symptoms for 3 months. Left radiculopathy. COMPARISON: Radiographs 08/03/2024. RESULT: CERVICAL: Counting reference: Craniocervical junction. Alignment: Alignment is anatomic. Bone marrow signal/fracture: No evidence for acute or chronic fracture. No pathologic marrow infiltration. Multiple small perineural cysts, especially on the left at C6-C7, on the right at C7-T1, and bilaterally at T1-T2. Craniocervical junction: Degenerative changes C1-C2, otherwise unremarkable. Cord: The cervical spinal cord is within normal limits of signal intensity and morphology. Cervical soft tissues: Partially empty sella, likely normal variant. C2-C3: No significant canal or foraminal narrowing. C3-C4: Disc bulge. Endplate osteophytes. Mild bilateral foraminal narrowing without significant canal narrowing. C4-C5: Disc bulge. Facet/uncovertebral degenerative changes. No significant canal or foraminal narrowing. C5-C6: Broad-based disc bulge. Endplate osteophytes. Facet/uncovertebral degenerative changes. Moderate bilateral foraminal narrowing with mild to moderate canal narrowing. C6-C7: Disc bulge. Facet/uncovertebral degenerative changes. Mild left foraminal narrowing without significant canal or right foraminal narrowing. C7-T1: Disc bulge. Facet/uncovertebral degenerative changes. Mild bilateral foraminal narrowing without significant canal narrowing. Upper thoracic spine: Visualized upper thoracic canal and foramina are without significant narrowing. IMPRESSION: Degenerative changes cervical spine as discussed. ELECTRONICALLY SIGNED BY: Dale Yu MD Normal Not Available Comment on above: Order Comment: Pins in left great toe Right total hip arthroplasty B/L total knee arthroplasty Back surgery L5 S1 2004 XR Cervical spine 4 or 5 Vie wson 08-03-2024 Imaging Result: AP lateral and obliques of the cervical spine taken in the office today shows extensive degenerative disc disease multiple levels with facet hypertrophy and neural foraminal encroachment in the C4-5, C5-6 region and degenerative disc starting in the C3 through the C7 no obvious fracture bony tumor seen she does have some calcific findings associated with the posterior trachea and thyroid region. [facility] Study observation (narrative) [facility] BD Bone Density DEXAon 05-25 BD Bone Density DEXA Exam Date/Time: 05/25/2024 09:42 EST Reason for Exam: Z78.0 Report IMPRESSION: BONE DENSITY IS WITHIN NORMAL LIMITS. The NOF/ISD guideline recommend FRAX for postmenopausal patients (not on treatment) if the lowest T-score for Spine(L1-L4), Femur Neck or Femur Total indicates low bone density (T score between -1.0 to -2.5, osteopenia). EXAM: BD Bone Density DEXA CLINICAL HISTORY: Z78.0. COMPARISON: 10/13/2018. COMMENT: The left femoral neck and both forearms were scanned. Bone mineral density of the left femoral neck is 0.919 g/cm2 and this value is -0.9 standard of deviation above the standard reference value. Bone mineral density left radius 33% is 0.901 g/cm2 and this value is 0.1 standard of deviation above the standard reference value. Bone mineral density right radius 33% is 0.911 g/cm2 and this value is 0.3 standard of deviation above the standard reference value. These values are within the normal range. Compared to prior study, 19.0% decrease in BMD of the left femoral neck, and 7.2% decrease in BMD left forearm. RECOMMENDATIONS: 1. All patients should optimize her calcium and vitamin D intake. 2. Consider FDA-approved medical therapies in postmenopausal women and minimal age 50 years and older, based on the following: - hip or vertebral (clinical or morphometric) fracture. - T-score less than or equal to -2.5 at the femoral neck or spine after the appropriate evaluation to exclude secondary causes. - Low bone density (T score between -1.0 and -2.5 at the femoral neck or spine) and a 10 year probability of hip fracture greater than or equal to 3% or a 10-year probability of a major osteoporosis-related fracture greater than or equal to 20% based on FRAX calculation. - Clinician judgment and/or patient preferences may indicate treatment for palpable attenuation fracture probability is above or below these levels. - Further guidance on treatment can be found at the National Osteoporosis Foundation's website: bonesource.org 3. Patients with diagnosis of osteoporosis or high risk for fracture. There are irregular bone mineral density tests. For patients eligible for Medicare, routine testing is allowed once every 2 years. Testing frequency can be increased to 1 year for patient's history of rapidly progressing disease, those who are receiving or discontinuing medical therapy to restore bone mass or have additional risk factors. Report Ordering Provider: Yessica Hoffman FINAL REPORT Dictated: 05/25/2024 3:58 pm Dale Yu MD Signed (Electronic Signature): 05/25/2024 3:58 pm Signed by: Dale Yu MD Transcribed by: TEQUILA Technologist: YAHIR Fonseca [facility] MA Mamm Screen w/CAD if perf and 3D [place] 05-25-2024 MA Mamm Screen w/CAD if perf and 3D [place] Exam Date/Time: 05/25/2024 08:43 EST Reason for Exam: Z12.31 Report IMPRESSION: BIRADS 1 NEGATIVE, NORMAL INTERVAL FOLLOW-UP. CLINICAL HISTORY: Screening. COMPARISON: Priors dating back to 2019. RESULT: Digital mammography and 3D tomosynthesis of bilateral breasts was performed. Category B - There are scattered areas of fibroglandular density. There is no suspicious mass, asymmetry, architectural distortion, or calcification. Vascular calcifications: Absent. CAD analysis was performed and used in the interpretation. Dense Breast: No Follow-up: 12 MONTH RECALL. Board Certified Radiologists. Accredited by the ACR and FDA. MAMMOGRAPHY IS VERY IMPORTANT TO YOUR HEALTH. THE [employer] GUIDELINES RECOMMEND THAT WOMEN 40 YEARS OF AGE AND OLDER SHOULD HAVE A MAMMOGRAM EVERY YEAR. A REMINDER LETTER WILL BE SENT AT THE APPROPRIATE TIME. THIS FACILITY UTILIZES A REMINDER SYSTEM TO ENSURE ALL PATIENTS RECEIVE REMINDER NOTIFICATIONS AT THE APPROPRIATE TIME BASED ON THE RECOMMENDATIONS OF THIS EXAM. THIS INCLUDES REMINDERS FOR ROUTINE SCREENING MAMMOGRAMS, DIAGNOSTIC MAMMOGRAMS IN WHICH THE PATIENT IS ASKED TO RETURN FOR ADDITIONAL VIEWS, OR OTHER BREAST IMAGING INTERVENTIONS WHEN APPROPRIATE. THE PATIENT WILL BE PLACED IN THE APPROPRIATE REMINDER SYSTEM INCLUDING A REMINDER AT THE APPROPRIATE TIME FOR ANY PENDING ADDITIONAL VIEWS. Report Ordering Provider: Yessica Hoffman FINAL REPORT Dictated: 05/25/2024 3:52 pm Dale Yu MD Signed (Electronic Signature): 05/25/2024 3:52 pm Signed by: Dale Yu MD Transcribed by: TEQUILA Technologist: [facility] Assessment: BI-RADS Category 1-Negative Recommendation: Normal interval follow-up Normal [facility] PAP [id number] 02-29-2024 Cytology report Cyto stain Doc (Cvx/Vag) Note Invalid Interpretation Code [facility] Comment on above: Result Comment: TEST S RESULT FLAG UNITS REF RANGE LAB Clinician Provided Cytology Information Source.............Endocervix No. of containers..01 ThinPrep Vial DIAGNOSIS: 01 NEGATIVE FOR INTRAEPITHELIAL LESION OR MALIGNANCY. CELLULAR CHANGES ASSOCIATED WITH ATROPHY ARE PRESENT. Specimen adequacy: 01 Satisfactory for evaluation. Endocervical component may not be distinguished in cases of atrophy. Performed by: Magnus George, Advertising Statistical Clerk (ASCP) . 01 Note: Note 01 The Pap smear is a screening test designed to aid in the detection of premalignant and malignant conditions of the uterine cervix. It is not a diagnostic procedure and should not be used as the sole means of detecting cervical cancer. Both false-positive and false-negative reports do occur. Test Methodology: Note 01 This liquid based ThinPrep(R) pap test was screened with the use of an image guided system. FLAG LEGEND: L-Low Normal,H-High Normal,LL-Alert Low,HH-Alert High <-Panic Low,>-Panic High,A-Abnormal,AA-Critical Abnormal Performed at: [address] [id number] Bethany Pham MD, Performed By: #### 3 [id number] #### [facility] [address] [place] [address] HPV 16+18+31+33+35+39+45 +51+52+56+58+59+66+6 8 DNA Probe+sig amp Ql (Cvx) Negative Invalid Interpretation Code Negative [facility] Comment on above: Result Comment: This nucleic acid amplification test detects fourteen high-risk HPV types (16,18,31,33,35,39,45,51,52,56,58,59,66,68) without differentiation. Performed at: [address] [id number] MD Ankit Sims Performed at: = [address] [id number] MD Ankit Sims Performed By: #### 3 [id number] #### [facility] [address] [place] [address] PAP [id number] 02-18-2024 Collection Technique BRUSH-SPATULA Normal [facility] Comment on above: Performed By: #### 3 [id number] #### [facility] [address] [place] [address] Gynecological Body Site ENDOCERVIX Normal [facility] Comment on above: Performed By: #### 3 [id number] #### [facility] [address] [place] [address] Optical coherence tomography study reporton 11-24-2023 [facility] Study observation (narrative) [facility] CT Abdomen/Pelvis w/ Contras ton 07-24-2023 CT [...] Lymph nodes: No abdominal or pelvic lymphadenopathy. Mesentery/Peritoneum/ Retroperitoneum: No ascites or mass. Vasculature: The celiac [...] Oral contrast amount in ml's: 900 Normal [facility] Consent for Treatmenton 06-29 Consent for Treatment [id number]#1 .00TIFF Normal [facility] RAD - MISCon 07-22-2023 RAD - MISC [id number]# 1.00TIFF Normal [facility] Insurance Correspondenceon 0 07-17-2023 Insurance Correspondence [id number]# 1.00TIFF Normal [facility] Physician Orderon 07-17-2023 Physician Order [id number]#1 .00TIFF Normal [facility] FREE T3on 03-18-2022 FREE T3 2.18 pg/mlL Normal 2.18-3.98 [facility] Comment on above: Performed By: #### L IPID, TSH, FT3, T4 #### [facility] [address] [place] [address] Dr. Dorys Salguero LIPID PROFILEon 03-18-2022 CHOL-HDL RATIO NORM SEE BELOW Normal [facility] Comment on above: Result Comment: 3.3 - 4.4 LOW RISK 4.4 - 7.1 AVERAGE RISK 7.1 - 11.0 MODERATE RISK >11.0 HIGH RISK Performed By: #### L IPID, TSH, FT3, T4 #### [facility] [address] [address] [address] Dorys Salguero Cholesterol [Mass/Vol] 152 mg/dL Normal <=200 [facility] Comment on above: Performed By: #### L IPID, TSH, FT3, T4 #### [facility] [address] [address] [address] Dorys Salguero Cholesterol in HDL [Mass/Vol] 42 mg/dL Normal 40-60 [facility] Comment on above: Performed By: #### L IPID, TSH, FT3, T4 #### [facility] [address] [address] [address] Dorys Salguero Cholesterol in LDL [Mass/Vol] 72.8 mg/dL Normal [facility] Comment on above: Performed By: #### L IPID, TSH, FT3, T4 #### [facility] [address] [address] [address] Dorys Salguero Cholesterol.total/Ch olesterol in HDL [Mass ratio] 3.6 {ratio} Normal [facility] Comment on above: Performed By: #### L IPID, TSH, FT3, T4 #### [facility] [address] [address] [address] Dorys Salguero HDL NORMAL > or = 60 mg/dl - LO W CARDIOVASCULAR RISK <40 mg/dl - HIGH CARDIOVASCULAR RISK Normal [facility] Comment on above: Performed By: #### L IPID, TSH, FT3, T4 #### [facility] [address] [place] [address] Dr. Dorys Salguero LDL CALC NORMAL SEE BELOW Normal [facility] Comment on above: Result Comment: <100 mg/dl OPTIMAL 100 - 129 mg/dl NEAR OR ABOVE OPTIMAL 130 - 159 mg/dl BORDERLINE HIGH 160 - 189 mg/dl HIGH >190 mg/dl VERY HIGH Performed By: #### L IPID, TSH, FT3, T4 #### [facility] [address] [address] [address] Dorys Salguero Triglyceride [Mass/Vol] 186 mg/dL Critically high <=150 [facility] Comment on above: Performed By: #### L IPID, TSH, FT3, T4 #### [facility] [address] [address] [address] Dorys Salguero VLDL CALC 37.2 mg/dL Normal [facility] Comment on above: Performed By: #### L IPID, TSH, FT3, T4 #### [facility] [address] [place] [address] Dr. Dorys Salguero T4on 03-18-2022 T4 [Mass/Vol] 7.90 ug/dL Normal 4.80-13.90 [facility] Comment on above: Performed By: #### L IPID, TSH, FT3, T4 #### [facility] [address] [place], [place] [address] Dr. Dorys Salguero TSHon 03-18-2022 TSH 1.689 uIU/mL Normal 0.358-3.740 [facility] Comment on above: Performed By: #### L IPID, TSH, FT3, T4 #### [facility] [id number] Dorys Salguero Office Visit (Cardiology)on 07-11-2021 [...] Weight Tips; Status:Complete - Retrospective Authorization; Done: [id number] Pre-operative cardiovascular examination IO EKG Electrocardiogram- 12 Lead; Status:Active - Perform Order,Retrospective Authorization; Requested for:[id number]; SocHx: Never a smoker Tobacco Use Screening; Status:Complete; Done: [id number] Tobacco Use Screening; Status:Complete; Done: [id number] Patient Instructions By signing my name below, IShaneka RN,Scribe Please bring all medicines, vitamins, and [...] PATIENT MAY PROCEDE WITH SURGERY Chief Complaint NEISHA QUINTANA is being seen for a cardiovascular evaluation . PIERO FU POC SURGERY NOT SCHEDULED YET. Patient [...] walking on a daily basis. We did scholarship counselor her on dietary discretion, weight loss and [...] 1 G (more content not included)... Normal [email or web address] Tobacco Screening.on 022 Adult depression screening assessment No [facility] 250 DO Work Phone: Tobacco use status [facility] b) No -[facility] 250 DO Work Phone: Adult depression screening assessment No [facility] 250 DO Work Phone: Tobacco use status [facility] b) No [facility] 250 DO Work Phone: NM STRESS/REST MULTIon 07-08 NM STRESS/REST MULTI Patient: DESIRE QUINTANAJayden Exam Date: 07/08/2021 : 1960 Gender:F Ordering : DR LUCRETIA LEE . Admission #: [id number] Family : Order #: [id number] CLICK HERE TO VIEW EXAM RADIOLOGY REPORT [...] Flores MD on 07/08/2021 at 12:03 Normal [facility] Vital Signs Date Time Vital Sign Value Performing Clinician Facility 08-17-2024 13:49-0400 Body height 165.1 cm [facility] [employer] Work Phone: [facility] 08-17-2024 13:49-0400 Body mass index (BMI) [Ratio] 32.28 kg/m2 [facility] [employer] Work Phone: [facility] 08-17-2024 13:49-0400 Body weight 88 kg [facility] PA Work Phone: [facility] 08-03-2024 08:01-0400 Body height 165.1 cm [facility] [employer] Work Phone: [facility] 08-03-2024 08:01-0400 Body mass index (BMI) [Ratio] 32.28 kg/m2 [facility] PA Work Phone: [facility] 08-03-2024 08:01-0400 Body weight 88 kg [facility] PA Work Phone: [facility] 07-14-2024 08:21-0400 Body height 165.1 cm Zoë Fu DO Work Phone: [facility] 07-14-2024 08:21-0400 Body mass index (BMI) [Ratio] 32.28 kg/m2 Zoë Fu DO Work Phone: [facility] 07-14-2024 08:21-0400 Body weight 88 kg Zoë Fu DO Work Phone: [facility] 04-19-2024 13:13-0500 Body height 165.1 cm Redd Brown DPM Work Phone: [facility] 04-19-2024 13:13-0500 Body mass index (BMI) [Ratio] 32.95 kg/m2 Redd Brown DPM Work Phone: [facility] 04-19-2024 13:13-0500 Body weight 89.81 kg Redd Brown DPM Work Phone: [facility] 04-05-2024 08:53-0500 Body height 165.1 cm Redd Brown DPM Work Phone: [facility] 04-05-2024 08:53-0500 Body mass index (BMI) [Ratio] 32.95 kg/m2 Redd Brown DPM Work Phone: [facility] 04-05-2024 08:53-0500 Body weight 89.81 kg Redd Brown DPM Work Phone: [facility] 04-05-2024 08:53-0500 Respiratory rate 18 /min Redd Brown DPM Work Phone: [facility] 03-18-2024 09:19-0500 Body height 165.1 cm Redd Brown DPM Work Phone: [facility] 03-18-2024 09:19-0500 Body mass index (BMI) [Ratio] 32.95 kg/m2 Redd Brown DPM Work Phone: [facility] 03-18-2024 09:19-0500 Body weight 89.81 kg Redd Brown DPM Work Phone: [facility] 03-18-2024 09:19-0500 Respiratory rate 16 /min Redd Brown DPM Work Phone: [facility] 03-04-2024 10:37-0500 Body height 165.1 cm Redd Brown DPM Work Phone: [facility] 03-04-2024 10:37-0500 Body mass index (BMI) [Ratio] 32.95 kg/m2 Redd Brown DPM Work Phone: [facility] 03-04-2024 10:37-0500 Body weight 89.81 kg Redd Brown DPM Work Phone: [facility] 03-04-2024 10:37-0500 Respiratory rate 16 /min Redd Brown DPM Work Phone: [facility] 02-04-2024 08:51-0500 Body height 165.1 cm Redd Brown DPM Work Phone: [facility] 02-04-2024 08:51-0500 Body mass index (BMI) [Ratio] 32.95 kg/m2 Redd Brown DPM Work Phone: [facility] 02-04-2024 08:51-0500 Body weight 89.81 kg Redd Brown DPM Work Phone: [facility] 02-04-2024 08:51-0500 Diastolic blood pressure 81 mm[Hg] Redd Brown DPM Work Phone: [facility] 02-04-2024 08:51-0500 Heart rate 83 /min Redd Brown DPM Work Phone: [facility] 02-04-2024 08:51-0500 Systolic blood pressure 129 mm[Hg] Redd Brown DPM Work Phone: [facility] 12-24-2022 08:00-0400 Body height 165.1 cm Junie Blades Other [employer] Other 12-24-2022 08:00-0400 Body mass index (BMI) [Ratio] 32.45 kg/m2 Junie Blades Other [employer] Other 12-24-2022 08:00-0400 Body weight 88.45 kg Junie Blades Other [employer] Other 12-24-2022 08:00-0400 Diastolic blood pressure 70 mm[Hg] Junie Blades Other [employer] Other 12-24-2022 08:00-0400 Systolic blood pressure 104 mm[Hg] Junie Blades Other [employer] Other 07-11-2021 11:08-0400 Body height 165.1 cm Lucretia M Hoy Work Phone: [facility] 250 DO Work Phone: 07-11-2021 11:08-0400 Body mass index (BMI) [Ratio] 31.38 kg/m2 Lucretia M Hoy Work Phone: [facility] 250 DO Work Phone: 07-11-2021 11:08-0400 Body surface area Derived from formula 1.93 m2 Lucretia M Hoy Work Phone: [facility] 250 DO Work Phone: 07-11-2021 11:08-0400 Body weight 85.55 kg Lucretia M Hoy Work Phone: [facility] 250 DO Work Phone: 07-11-2021 11:08-0400 Diastolic blood pressure 80 mm[Hg] Lucretia M Hoy Work Phone: [facility] 250 DO Work Phone: 07-11-2021 11:08-0400 Heart rate 57 /min Lucretia M Hoy Work Phone: [facility] 250 DO Work Phone: 07-11-2021 11:08-0400 Systolic blood pressure 118 mm[Hg] Lucretia M Hoy Work Phone: [facility] 250 DO Work Phone: 07-11-2021 11:01-0400 Body height 165.1 cm Lucretia M Hoy Work Phone: [facility] 250 DO Work Phone: 07-11-2021 11:01-0400 Body mass index (BMI) [Ratio] 31.38 kg/m2 Lucretia M Hoy Work Phone: [facility] 250 DO Work Phone: 07-11-2021 11:01-0400 Body surface area Derived from formula 1.93 m2 Lucretia M Hoy Work Phone: [facility] 250 DO Work Phone: 07-11-2021 11:01-0400 Body weight 85.55 kg Lucretia M Hoy Work Phone: [facility] 250 DO Work Phone: 07-11-2021 11:01-0400 Diastolic blood pressure 80 mm[Hg] Lucretia M Hoy Work Phone: [facility] 250 DO Work Phone: 07-11-2021 11:01-0400 Heart rate 57 /min Lucretia M Hoy Work Phone: [facility] 250 DO Work Phone: 07-11-2021 11:01-0400 Systolic blood pressure 130 mm[Hg] Lucretia M Hoy Work Phone: [facility] 250 DO Work Phone: Encounters Encounter Date Encounter Type Care Provider Facility Start: 11-25-2024 End: 11-25-2024 Bamboo flowsheet Kristal Milton DO Work Phone: [facility] Start: 11-25-2024 End: 11-25-2024 Bamboo flowsheet Kristal Milton DO Work Phone: [facility] Start: 11-25-2024 End: 11-25-2024 ambulatory KRISTAL MILTON Not Available Start: 09-09-2024 End: 09-09-2024 ambulatory Lucretia Lee [facility] Start: 08-17-2024 End: 08-17-2024 Bamboo flowsheet Cindy Valadez PA Work Phone: [facility] Start: 08-17-2024 End: 08-17-2024 Bamboo flowsheet Cindy Valadez PA Work Phone: [facility] Start: 08-17-2024 End: 08-17-2024 Patient encounter procedure Cindy Valadez PA Work Phone: [facility] Comment on above: Left cervical radicu lopathy (Primary Dx); Herniated nucleus pulposus, C5-6 left; DDD (degenerative disc disease), cervical Start: 08-17-2024 End: 08-17-2024 ambulatory CINDY VALADEZ Not Available Start: 08-16-2024 End: 08-16-2024 Follow-up encounter Cindy Valadez PA Work Phone: [facility] Start: 08-05-2024 End: 08-05-2024 ambulatory CINDY VALADEZ Not Available Start: 08-03-2024 End: 08-03-2024 Patient encounter procedure Cindy Valadez PA Work Phone: [facility] Comment on above: Cervical radiculopat hy due to degenerative joint disease of spine (Primary Dx); Claustrophobia (CMS/HCC); Left cervical radiculopathy Start: 08-03-2024 End: 08-03-2024 ambulatory CINDY Audelia SILVIA Not Available Start: 07-14-2024 End: 07-14-2024 Patient encounter procedure Zoë Fu DO Work Phone: [facility] Comment on above: Chronic pain of both shoulders (Primary Dx); Left cervical radiculopathy; Primary osteoarthritis of right shoulder Start: 07-14-2024 End: 07-14-2024 ambulatory ZOË FU Not Available Start: 05-25-2024 End: 05-25-2024 ambulatory Yessica Lobo Chapmane [facility] Start: 04-19-2024 End: 04-19-2024 Bamboo flowsheet Redd Sandoval DPM Work Phone: [facility] Start: 04-19-2024 End: 04-19-2024 Bamboo flowsheet Redd Sandoval DPM Work Phone: [facility] Start: 04-19-2024 End: 04-19-2024 Patient encounter procedure Redd Sandoval DPM Work Phone: [facility] Comment on above: Verruca plantaris (P rimary Dx); Foot pain, left Start: 04-19-2024 End: 04-19-2024 ambulatory REDD SANDOVAL Not Available Start: 04-05-2024 End: 04-05-2024 Bamboo flowsheet Redd Sandoval DPM Work Phone: [facility] Start: 04-05-2024 End: 04-05-2024 Bamboo flowsheet Redd Sandoval DPM Work Phone: [facility] Start: 04-05-2024 End: 04-05-2024 Office outpatient visit 15 minutes Redd Sandoval DPM Work Phone: [facility] Comment on above: Exostosis of left fo ot (Primary Dx); Verruca plantaris; Foot pain, left; Capsulitis of metatarsophalangeal (MTP) joint of left foot Start: 04-05-2024 End: 04-05-2024 ambulatory REDD SANDOVAL Not Available Start: 03-18-2024 End: 03-18-2024 Bamboo flowsheet Redd Janie Jaime DPM Work Phone: [facility] Start: 03-18-2024 End: 03-18-2024 Bamboo flowsheet Redd A Jaime DPM Work Phone: [facility] Start: 03-18-2024 End: 03-18-2024 Patient encounter procedure Redd Lima Jaime DPM Work Phone: [facility] Comment on above: Verruca plantaris (P rimary Dx); Foot pain, left; Capsulitis of metatarsophalangeal (MTP) joint of left foot Start: 03-18-2024 End: 03-18-2024 ambulatory REDD Janie JAIME Not Available Start: 03-04-2024 End: 03-04-2024 Bamboo flowsheet Redd Janie Jaime DPM Work Phone: [facility] Start: 03-04-2024 End: 03-04-2024 Bamboo flowsheet Redd Janie Jaime DPM Work Phone: [facility] Start: 03-04-2024 End: 03-04-2024 ambulatory REDD Janie JAIME Not Available Start: 03-04-2024 End: 03-04-2024 Patient encounter procedure Redd A Jaime DPM Work Phone: [facility] Comment on above: Verruca plantaris (P rimary Dx); Foot pain, left; Capsulitis of metatarsophalangeal (MTP) joint of left foot Start: 02-18-2024 End: 02-18-2024 ambulatory Yessica Hoffman [facility] Start: 02-04-2024 End: 02-04-2024 Bamboo flowsheet Redd Janie Jaime DPM Work Phone: [facility] Start: 02-04-2024 End: 02-04-2024 Bamboo flowsheet Redd Sandoval DPM Work Phone: [facility] Start: 02-04-2024 End: 02-04-2024 ambulatory REDD SANDOVAL Not Available Start: 02-04-2024 End: 02-04-2024 Office outpatient new 30 minutes Redd Sandoval DPM Work Phone: [facility] Comment on above: Capsulitis of metata rsophalangeal (MTP) joint of left foot (Primary Dx); Neoplasm of uncertain behavior of skin; Verruca plantaris; Foot pain, left Start: 07-22-2023 End: 07-22-2023 ambulatory Lucretia Lee [facility] Start: 12-24-2022 End: 12-24-2022 ambulatory Junie Samuel Other [facility] [employer] Other Start: 12-24-2022 Office outpatient ne w 45 minutes Junie Blades [facility] Start: 03-18-2022 End: 03-19-[address] LUCRETIA LEE Facility:[facility] Start: 07-11-2021 Office consultation new/estab patient 60 min Lucretia Lee Work Phone: [facility] 250 DO Work Phone: Start: 07-08-2021 End: 07-09-[address] LUCRETIA LEE Facility:[facility] Patient encounter status Lucretia Lee Work Phone: [facility] 250 DO Work Phone: Procedures Date Procedure Procedure Detail Performing Clinician Start: 11-25-2024 Computerized ophthal ashlie imaging retina Kristal Milton DO Work Phone: Start: 11-25-2024 End: 11-25-2024 Ophth medical xm&eval comprhnsv estab pt 1/> Epiretinal membrane (ERM) of left eye Kristal Milton DO Work Phone: Comment on above: Age-related nuclear cataract of both eyes (Primary Dx); Epiretinal membrane (ERM) of left eye; Dry eyes; Blepharitis of upper and lower eyelids of both eyes, unspecified type Start: 08-03-2024 Radex spine cervical 4 or 5 views Cindy Valadez PA Work Phone: Start: 07-14-2024 Radex shoulder compl ete minimum 2 views Zoë Fu DO Work Phone: Start: 11-24-2023 Computerized ophthal ashlie imaging retina Kristal Audelai Milton DO Work Phone: Start: 11-24-2023 End: 11-24-2023 Ophth medical xm&eval comprhnsv estab pt 1/> Epiretinal membrane (ERM) of left eye Kristal Audelia Milton DO Work Phone: Comment on above: Age-related nuclear cataract of both eyes (Primary Dx); Epiretinal membrane (ERM) of left eye; Dry eyes; Blepharitis of upper and lower eyelids of both eyes, unspecified type Arthroplasty of knee Lucretia [employer] Work Phone: Laparoscopy [facility] Work Phone: Laparotomy [facility] Work Phone: Operative procedure on foot Lucretia M [facility] Work Phone: Procedure on back Lucretia M [facility] Work Phone: Plan of Treatment Date Care Activity Detail Author Start: 11-28-2024 [facility] Start: 11-25-2024 End: 11-25-2024 Patient encounter procedure [facility] Comment on above: Arrived Start: 08-17-2024 End: 08-17-2024 Patient encounter procedure 08/17/2024 1:45 PM EDT Office Visit [facility] [address] [place] [address] Cindy Valadez PA [address] [place] [address] [place], [place] [id number] Arrived [facility] Comment on above: Arrived Start: 08-03-2024 End: 08-03-2024 Patient encounter procedure 08/03/2024 8:00 AM EDT Office Visit [facility] [address] [place] [id number] Cindy Valadez PA [address] [facility] [place] [address] [facility] Start: 04-19-2024 End: 04-19-2024 Patient encounter procedure [facility] Comment on above: Verruca plantaris (Primary Dx); Foot pain, left Start: 04-05-2024 End: 04-05-2024 Patient encounter procedure 04/05/2024 9:00 AM EST Office Visit [facility] [address] [place] [id number] Redd Sandoval DPM [address] [address] Verruca plantaris (Primary Dx); Foot pain, left; Capsulitis of metatarsophalangeal (MTP) joint of left foot [facility] Comment on above: Verruca plantaris (Primary Dx); Foot pain, left; Capsulitis of metatarsophalangeal (MTP) joint of left foot Start: 03-18-2024 End: 03-18-2024 Patient encounter procedure [facility] Comment on above: Verruca plantaris (Primary Dx); Foot pain, left; Capsulitis of metatarsophalangeal (MTP) joint of left foot Start: 02-18-2024 End: 02-18-2024 Patient encounter procedure 02/18/2024 10:30 AM EST Office Visit [facility] [address] [place] [address] [address] [place] [address] Redd Sandoval DPM [address] [address] [facility] Start: 11-29-2023 Influenza vaccination Influenza Vaccine (#1) [facility] Start: 09-26-2023 Pneumococcal Vaccine: 65+ Years (1 of 1 - PCV) Pneumococcal Vaccine: 65+ Years (1 of 1 - PCV) [facility] Start: 2008 Pneumococcal Vaccine: 65+ Years (1 of 1 - PCV) Pneumococcal Vaccine: 65+ Years (1 of 1 - PCV) [facility] Start: 1998 Screening for malignant neoplasm of breast Mammogram [facility] Start: 1988 Screening for malignant neoplasm of cervix [facility] Start: 09-26-1979 Screening for malignant neoplasm of cervix Pap Smear [facility] Start: 1960 Screening for malignant neoplasm of colon [facility] XR Shoulder - left 2 Views XR sh oulder 2+ views left Imaging Routine Chronic pain of both shoulders 07/14/2024 7:48 AM EDT [facility] XR Shoulder - right 2 Views XR s houlder 2+ views right Imaging Routine Chronic pain of both shoulders 07/14/2024 7:48 AM EDT [facility] Work Phone: Immunizations Immunization Date Immunization Notes Care Provider Ammy white 02-06-2021 Influenza, injectabl e, Madin [place] Canine Kidney, preservative free, quadrivalent Lucretia M Hoy [facility] Work Phone: 02-06-2021 influenza virus vaccine, unspecified formulation Kristal Milton DO Work Phone: [facility] 07-05-2020 Moderna COVID-19 Vaccine 100 MCG/0.5ML Intramuscular Suspension Lucretia M Hoy Work Phone: [facility] DO Work Phone: 06-07-2020 Moderna COVID-19 Vaccine 100 MCG/0.5ML Intramuscular Suspension [facility]ia M Hoy [facility] Work Phone: 01-23-2020 Influenza, injectabl e, Madin [place] Canine Kidney, preservative free, quadrivalent Lucretia M Hoy [facility]: [facility] DO Work Phone: 01-12-2017 influenza, injectabl e, quadrivalent, preservative free Lucretia M Hoy [facility] Work Phone: 01-16-2009 novel [id number], preservative-free, injectable Lucretia Lee Work Phone: [facility] 250 DO Work Phone: Payers Date Payer Category Payer Medicaid [employer] MEDICARE A DVANTAGE [id number] 2023 Medicare AETNA MEDICARE A DVANTAGE AETNA MEDICARE REPLACEMENT [id number] 2023-Present [address] [place] [address] [id number] 2023 Private Health Insurance [id number] 2023 Unknown [id number] 1959 Private Health Insurance [id number] 1960 Unknown [id number] 2.16.840.1.871853.3.579.2. 593 1958 Unknown [id number] 2.16.840.1.525659.3.579.2. 593 1958 Unknown [id number] 2.16.840.1.130181.3.579.2. 727 1960 Unknown [id number] 2.16.840.1.315523.3.579.2. 727 1958 Unknown [id number] 2.16.840.1.330291.3.579.2. 727 1958 Unknown [id number] 2.16.840.1.530079.3.579.2. 727 1960 Unknown [id number] 2.16.840.1.864900.3.579.2. 1259 1960 Unknown [id number] 2.16.840.1.495722.3.579.2. 125 1958 Unknown [id number] 2.16.840.1.046462.3.579.2. 125 1958 Unknown [id number] 2.16.840.1.392438.3.579.2. 125 1958 Unknown [id number] 2.16.840.1.440115.3.579.2. 1258 1958 Unknown [id number] 2.16.840.1.826264.3.579.2. 125 1958 Unknown [id number] 2.16.840.1.468157.3.579.2. 125 1958 Unknown [id number] 2.16.840.1.235210.3.579.2. 1258 1958 Unknown [id number] 2.16.840.1.155380.3.579.2. 125 1958 Unknown [id number] 2.16.840.1.719745.3.579.2. 125 1958 Unknown [id number] 2.16.840.1.096869.3.579.2. 125 1958 Unknown [id number] 2.16.840.1.746813.3.579.2. 1258 1960 Unknown [id number] 2.16.840.1.496109.3.579.2. 1259 Unknown [facility] Social History Date Type Detail Facility Start: 11-24-2023 End: 08-17-2024 [facility]affeine [facility] Work Phone: Comment on above: 1/2 CUP COFFEE DAILY 1 CAN DIET SODA DAILY; 1 GLASS WINE AND 1 B EER; Start: 11-24-2023 End: 08-17-2024 Sex Assigned At [facility] [employer] Other Start: 09-04-2022 End: 11-25-2024 Tobacco smoking status NHIS Never smoked tobacco [facility] Start: 09-04-2022 End: 11-25-2024 Tobacco use and exposure Smokeless tobacco non-user [facility] Start: 11-24-2023 End: 11-25-2024 Alcoholic beverage intake Ex-drinker (finding) [facility] Start: 09-04-2022 Alcohol Comment caffeine intak e: 1-2 cups per day of coffee/ soda [facility] Start: 1960 Sex assigned at Not on file [facility] NEGATED: Highlighted rowStart: NINF History of tobacco use Passive smoker [facility] Clinical Notes 12-24-2022 to 11-25-2024 Kristal Milton DO - 11/25/2024 8:30 AM EDTTodMATEUS Mata - 08/17/2024 1:45 PM EDTPatient InstructionsToMATEUS Cotto - 08/03/2024 8:00 AM EDTPatient Instructions Note Date & Type Note Facility 11-25-2024 Note Right Eye Quality was good. Scan locations included subfoveal. Progression has been stable. Findings include normal observations. Left Eye Quality was good. Scan locations included subfoveal. Progression has been stable. Findings include abnormal foveal contour, epiretinal membrane. Notes Good scan with normal appearance OD [facility] 11-25-2024 History of Presen t illness Narrative Images from the original note were not included. Assessment/Plan Diagnoses and all orders for this visit: Age-related nuclear cataract of both eyes - Cataract, OU: Observe for now without intervention. The patient was advised to contact us if any change or worsening of vision Epiretinal membrane (ERM) of left eye - The condition and pathophysiology were described to the patient. An epiretinal membrane (ERM) has the potential to influence quality of vision including acuity as well as metamorphopsia. Advised observation at this time. Dry eyes - Dry Eyes OU -- Environmental changes to minimize dryness and exposure and the use of artificial tears were recommended. Blepharitis of upper and lower eyelids of both eyes, unspecified type - Blepharitis, posterior type OU - The patient exhibits inspissated meibomian glands. Warm compresses, lid massage and lid scrubs were recommended. documented in this encounter [facility] 08-17-2024 History of Presen t illness Narrative Subjective Patient ID: Neisha Quintana is a 63 y.o. female. Chief Complaint: Follow-up of the Neck (MRI [facility] 08/05/24) Last Surgery: No surgery found Last Surgery Date: No surgery found HPI Neisha is still struggling with her left arm pain and neck discomfort follow-up for her MRI today which does demonstrate multiple levels affecting the left neural foramina with most prominence at C4-5 extending down even to C7-T1. She is still having a lot of nighttime disruption. Objective Ortho Exam right shoulder has Mild stiffness with improved mobility There is a moderate amount of crepitance. Cuff strength shows mild weakness consistent with arthropathy. She is neurovascularly intact distally. Tenderness has diminished throughout the proximal humeral area. The left shoulder has near full range of motion. There is some mild cuff tendinopathy signs. It appears to be more radiation into her cervical trapezial area. Mildly positive Spurling compression test. Irritating the forearm no change in the amount of hand paresthesia. She is neurovascularly intact to the upper extremities. Image Results: MR cervical spine wo contrast Narrative: EXAMINATION/TECHNIQUE: MR CERVICAL SPINE WO CONTRAST HISTORY: Cervical radiculopathy. No known injury. Symptoms for 3 months. Left radiculopathy. COMPARISON: Radiographs 08/03/2024. RESULT: CERVICAL: Counting reference: Craniocervical junction. Alignment: Alignment is anatomic. Bone marrow signal/fracture: No evidence for acute or chronic fracture. No pathologic marrow infiltration. Multiple small perineural cysts, especially on the left at C6-C7, on the right at C7-T1, and bilaterally at T1-T2. Craniocervical junction: Degenerative changes C1-C2, otherwise unremarkable. Cord: The cervical spinal cord is within normal limits of signal intensity and morphology. Cervical soft tissues: Partially empty sella, likely normal variant. C2-C3: No significant canal or foraminal narrowing. C3-C4: Disc bulge. Endplate osteophytes. Mild bilateral foraminal narrowing without significant canal narrowing. C4-C5: Disc bulge. Facet/uncovertebral degenerative changes. No significant canal or foraminal narrowing. C5-C6: Broad-based disc bulge. Endplate osteophytes. Facet/uncovertebral degenerative changes. Moderate bilateral foraminal narrowing with mild to moderate canal narrowing. C6-C7: Disc bulge. Facet/uncovertebral degenerative changes. Mild left foraminal narrowing without significant canal or right foraminal narrowing. C7-T1: Disc bulge. Facet/uncovertebral degenerative changes. Mild bilateral foraminal narrowing without significant canal narrowing. Upper thoracic spine: Visualized upper thoracic canal and foramina are without significant narrowing. Impression: Degenerative changes cervical spine as discussed. ELECTRONICALLY SIGNED BY: Dale Yu MD Assessment/Plan Encounter Diagnoses: Left cervical radiculopathy Herniated nucleus pulposus, C5-6 left DDD (degenerative disc disease), cervical Orders Placed This Encounter gabapentin (Neurontin) 300 MG capsule Follow up if symptoms worsen or fail to improve. We will set up a referral for Dr. Adrian Marshall for treatment plan regarding your radicular cervical neck pain. Try the gabapentin 300 mg at nighttime see if this helps with alleviating some of the pain. May continue with anti-inflammatory and or Tylenol for breakthrough discomfort. To the cervical spine 20 minutes several times a day we will be beneficial using a towel to protect the skin. Call for any concerns in the meanwhile. documented in this encounter [facility] 08-17-2024 Instructions MATEUS Whyte - 08/17/2024 1:45 PM EDT We will set up a referral for Dr. Adrian Marshall for treatment plan regarding your radicular cervical neck pain. Try the gabapentin 300 mg at nighttime see if this helps with alleviating some of the pain. May continue with anti-inflammatory and or Tylenol for breakthrough discomfort. To the cervical spine 20 minutes several times a day we will be beneficial using a towel to protect the skin. Call for any concerns in the meanwhile. documented in this encounter [facility] 08-03-2024 History of Presen t illness Narrative Images from the original note were not included. Subjective Patient ID: Neisha Quintana is a 63 y.o. female. Chief Complaint: Pain of the Neck Last Surgery: No surgery found Last Surgery Date: No surgery found HPI Neisha comes in follow-up from her prednisone taper and states that she did get some improvement with her left shoulder and arm pain for just a couple days and then really did not know much difference. She has numbness extending through the entire hand and radicular pain through the elbow and across the forearm with certain positioning of her head and neck. She is better from her right shoulder standpoint. Objective Ortho Exam right shoulder has Mild stiffness with improved mobility There is a moderate amount of crepitance. Cuff strength shows mild weakness consistent with arthropathy. She is neurovascularly intact distally. Tenderness has diminished throughout the proximal humeral area. The left shoulder has near full range of motion. There is some mild cuff tendinopathy signs. It appears to be more radiation into her cervical trapezial area. Mildly positive Spurling compression test. Irritating the forearm no change in the amount of hand paresthesia. She is neurovascularly intact to the upper extremities. Image Results: XR cervical spine complete 4 to 5 views Imaging Result: AP lateral and obliques of the cervical spine taken in the office today shows extensive degenerative disc disease multiple levels with facet hypertrophy and neural foraminal encroachment in the C4-5, C5-6 region and degenerative disc starting in the C3 through the C7 no obvious fracture bony tumor seen she does have some calcific findings associated with the posterior trachea and thyroid region. Assessment/Plan Encounter Diagnoses: Cervical radiculopathy due to degenerative joint disease of spine Claustrophobia (CMS/HCC) Left cervical radiculopathy Orders Placed This Encounter XR cervical spine complete 4 to 5 views diazePAM (Valium) 5 MG tablet Follow up in about 3 weeks (around 08/24/2024) for MRI results. We will use the Valium to help her tolerance with the MRI being ordered today of the C-spine, our office will notify you when approval is obtained through your insurance and will help you schedule this. In the meantime continue cold pack and use of her Celebrex as well as intermittent Tylenol for discomfort. documented in this encounter [facility] 08-03-2024 Instructions MATEUS Whyte - 08/03/2024 8:00 AM EDT We will use the Valium to help her tolerance with the MRI being ordered today of the C-spine, our office will notify you when approval is obtained through your insurance and will help you schedule this. In the meantime continue cold pack and use of her Celebrex as well as intermittent Tylenol for discomfort. documented in this encounter [facility] 07-14-2024 History of Presen t illness Narrative Images from the original note were not included. Neisha Quintana is a 63 y.o. female presents with chief complaint of bilateral shoulder and arm pain, right worse than left. HPI: Rin is here for shoulder pain and stiffness of the right. The left appears to be more neck and trapezial pulling down into her axilla. She has had problems for several months. She does have a strong history of arthritis. She has no fever, chills or constitutional symptoms. No falls or trauma. SUBJECTIVE: MEDICATIONS: Current Outpatient Medications Medication Instructions celecoxib (CeleBREX) 200 MG capsule citalopram (CELEXA) 10 mg, Daily Crestor 20 MG tablet Cytomel 5 MCG tablet lisinopril 10 MG tablet metoprolol tartrate (Lopressor) 50 MG tablet Every 12 hours pantoprazole (ProtoNix) 40 MG EC tablet Every 24 hours predniSONE (Deltasone) 10 MG tablet Take 5 tabs p.o. daily x3 days Take 4 tabs p.o. daily x3 days Take 3 tabs p.o. daily x3 days Take 2 tabs p.o. daily x3 days Take 1 tab p.o. daily x3 days Synthroid 112 MCG tablet Vitamin D-Vitamin K (DosoKap) 137.5-200 MCG tablet 1 tablet, Daily ALLERGIES: No Known Allergies SURGICAL HISTORY: Past Surgical History: Procedure Laterality Date BUNIONECTOMY Bilateral 1984 BUNIONECTOMY 2009 EXPLORATORY LAPAROTOMY 1984 KNEE ARTHROPLASTY Left 01/2022 KNEE CARTILAGE SURGERY 2005 Meniscus Surgery LAMINECTOMY 2004 L5-S1- Dr. Chester [place] REPAIR OF ABDIEL,ONE 2009 TOTAL HIP ARTHROPLASTY Right 09/02/2021 MTP TOTAL KNEE ARTHROPLASTY Right 06/10/2016 MTP FAMILY HISTORY: Family History Problem Relation Name Age of Onset Diabetes Mother Hypertension Mother Heart disease Mother Diabetes Father Hypertension Father Heart disease Father Osteoarthritis Father Cancer Father SOCIAL HISTORY: Social History Tobacco Use Smoking status: Never Smokeless tobacco: Never Vaping Use Vaping status: Never Used Substance Use Topics Alcohol use: Not Currently Alcohol/week: 7.0 - 14.0 standard drinks of alcohol Types: 7 - 14 Standard drinks or equivalent per week Comment: caffeine intake: 1-2 cups per day of coffee/ soda Drug use: Never Depression: Not on file REVIEW OF SYMPTOMS: The review of systems, history and current medications list are all reviewed today. OBJECTIVE: Visit Vitals Ht 5' 5 Wt 194 lb BMI 32.28 kg/m Smoking Status Never BSA 2.01 m Physical Exam On physical exam, the right shoulder has moderate stiffness. There is a moderate amount of crepitance. Cuff strength shows mild weakness consistent with arthropathy. She is neurovascularly intact distally. Tenderness is noted throughout the proximal humeral area. The left shoulder has near full range of motion. There is some mild cuff tendinopathy signs. It appears to be more radiation into her cervical trapezial area. Negative Spurling compression test. She is neurovascularly intact to the upper extremities. Bilateral shoulder x-rays two views AP and Y saved to the permanent record shows extensive degenerative changes of the right shoulder. There is a large inferior humeral head spur as well as inferior glenoid lipping. Mild decrease in the acromiohumeral interval. There is a type II acromion with hypertrophic A/C joint. There is no acute fracture, dislocation, tumor or infection seen. Two view x-ray of the left shoulder shows mild to medium degenerative changes. No fracture, dislocation, tumor or infection seen. ASSESSMENT AND PLAN: Assessment/Plan Bilateral shoulder osteoarthritis, right worse than left. Right shoulder cuff arthropathy. Questionable cervical trapezial strain with radicular pattern. The nature of the findings were discussed at length. Medrol dose pack was prescribed. With consent from the patient today, 1 cc of cortisone (3 mg of Betamethasone sodium phosphate with 3 mg of Betamethasone acetate) and 1 cc of 1% plain Lidocaine was injected to the right shoulder under ultrasound guidance. Limited exam shows thinning of the rotator cuff, hypertrophic A/C joint. Biceps tendon is intact. The needle was captured and saved to the permanent record. She is aware that she can have up to three injections per year. We discussed fpc the role of CT scan for further discussion of arthroplasty management if having recalcitrant pain. The left shoulder has similar pattern just to a lesser degree. We discussed injections in that area if having continued pain. We will set up a referral to physician nursing home assistant administrator Cindy Valadez for five view cervical x-rays and further work up of her neck. It seems to be more the source on the left side. She voices verbal understanding. She is discharged in stable condition. The patient was seen and examined. From the time of check in, nurse triage, vital signs, x-ray, x-ray interpretation, review of systems, comprehensive history and physical exam as well as setting up treatment plan and further management took 35 minutes. Cosigned by Zoë Fu DO at 07/19/2024 7:32 AM EDT documented in this encounter [facility] 04-19-2024 History of Presen t illness Narrative Patient: Neisha Lima Ashanti : 1960 PCP: Lucretia Lee MD SUBJECTIVE Neisha Quintana 63 y.o. presents today for follow up of skin lesion/neoplasm of unknown origin to the left foot Pt states that previous treatment of acid tx with some improvement Pt rates pain the pain on a 1-10 scale an intensity of 3 Pt presents today for followup. . Patient also has had pain to the sub 1st metatarsal region of the left foot with history of 1st MPJ fusion and 2nd hammertoe surgery in the past. Patient also has left great toe bony prominence that is sometimes irritating shoe gear and does wear wider shoes with some improvement but states painful from time to time Allergies: No Known Allergies Past Medical History: Past Medical History: Diagnosis Date Arthritis COVID-19 11/2020 Depression ([facility]) High cholesterol ([facility]) Obesity Thyroid disease ([facility]) Medications: Current Outpatient Medications: celecoxib (CeleBREX) 200 MG capsule, , Disp: , Rfl: citalopram (CeleXA) 10 MG tablet, Take 10 mg by mouth in the morning., Disp: , Rfl: Crestor 20 MG tablet, 1 tablet Orally, Disp: , Rfl: ferrous sulfate 325 (65 Fe) MG tablet, every 12 (twelve) hours., Disp: , Rfl: lisinopril 10 MG tablet, 1 tablet Orally, Disp: , Rfl: magnesium 250 MG tablet, 1 capsule with a meal Orally, Disp: , Rfl: metoprolol tartrate (Lopressor) 50 MG tablet, every 12 (twelve) hours., Disp: , Rfl: pantoprazole (ProtoNix) 40 MG EC tablet, 1 (one) time each day at the same time., Disp: , Rfl: Synthroid 112 MCG tablet, , Disp: , Rfl: Social History: Social History Socioeconomic History Marital status: Spouse name: Not on file Number of children: Not on file Years of education: Not on file Highest education level: Not on file Occupational History Not on file Tobacco Use Smoking status: Never Smokeless tobacco: Never Vaping Use Vaping status: Never Used Substance and Sexual Activity Alcohol use: Not Currently Alcohol/week: 7.0 - 14.0 standard drinks of alcohol Types: 7 - 14 Standard drinks or equivalent per week Comment: caffeine intake: 1-2 cups per day of coffee/ soda Drug use: Not on file Sexual activity: Defer Other Topics Concern Not on file Social History Narrative Not on file Social Drivers of Health Financial Resource Strain: Not on file Food Insecurity: Not on file Transportation Needs: Not on file Physical Activity: Not on file Stress: Not on file Social Connections: Not on file Intimate Partner Violence: Not on file Housing Stability: Not on file ROS: General: denies fever, chills, fatigue, malaise Gastrointestinal: denies abdominal pain, ulcers, or changes in appetite or bowel habits Positive history of steatosis Musculoskeletal: Positive history of osteoarthritis to the knee hip and back Cardiovascular: denies CP, palpitations, irregular rhythms OBJECTIVE LE EXAM: DERM: Positive hair growth to b/l feet with good skin turgor noted. Negative openings in skin. Nummular lesion measuring at the left sub 5th metatarsal region measuring 0.1 cm x 0.1 cm. Dorsum of left great toe DIPJ region has area of bony prominence that measure 0.4 cm x 0.4 cm VASC: Palpable pedal pulsed b/l with warm to cool tibia to toes b/l NEURO: Gross sensation intact digits 1-10 and b/l feet ORTHO: +5/5 DF/PF/IN/EV right, +5/5 DF/PF/IN/EV left. 20 degrees inversion and 10 degrees eversion STJ b/l. Ankle ROM less than 10 degrees b/l. Positive pain on palpation to left foot lesion Diminished pain on palpation left sub 1st metatarsal region and area of sesamoids with absent fat pad Minimal pain on palpation left great toe bony exostosis XRAY: US: ASSESSMENT 1. Verruca plantaris 2. Foot pain, left PLAN Application of salinocaine acid medication to lesion/lesions located at left foot Informed pt of risks and benefits of procedure including high reoccurence rate, infection, pain and consent given. Application of DSD post procedure. Patient to continue with oral anti - inflammatories as needed for pain and recommended OTC medications such as tylenol or Ibuprofen Redd Sandoval DPM documented in this encounter [facility] 04-05-2024 History of Presen t illness Narrative Patient: Neisha Quintana : 1960 PCP: Lucretia Lee MD SUBJECTIVE Neisha Quintana 63 y.o. presents today for follow up of skin lesion/neoplasm of unknown origin to the left foot Pt states that previous treatment of acid tx with some improvement Pt rates pain the pain on a 1-10 scale an intensity of 3 Pt presents today for followup. . Patient also has had pain to the sub 1st metatarsal region of the left foot with history of 1st MPJ fusion and 2nd hammertoe surgery in the past. Patient also has left great toe bony prominence that is sometimes irritating shoe gear and does wear wider shoes with some improvement but states painful from time to time Allergies: No Known Allergies Past Medical History: Past Medical History: Diagnosis Date Arthritis COVID-19 11/2020 Depression ([facility]) High cholesterol ([facility]) Obesity Thyroid disease ([facility]) Medications: Current Outpatient Medications: celecoxib (CeleBREX) 200 MG capsule, , Disp: , Rfl: citalopram (CeleXA) 10 MG tablet, Take 10 mg by mouth in the morning., Disp: , Rfl: Crestor 20 MG tablet, 1 tablet Orally, Disp: , Rfl: ferrous sulfate 325 (65 Fe) MG tablet, every 12 (twelve) hours., Disp: , Rfl: lisinopril 10 MG tablet, 1 tablet Orally, Disp: , Rfl: magnesium 250 MG tablet, 1 capsule with a meal Orally, Disp: , Rfl: metoprolol tartrate (Lopressor) 50 MG tablet, every 12 (twelve) hours., Disp: , Rfl: pantoprazole (ProtoNix) 40 MG EC tablet, 1 (one) time each day at the same time., Disp: , Rfl: Synthroid 112 MCG tablet, , Disp: , Rfl: Social History: Social History Socioeconomic History Marital status: Spouse name: Not on file Number of children: Not on file Years of education: Not on file Highest education level: Not on file Occupational History Not on file Tobacco Use Smoking status: Never Smokeless tobacco: Never Vaping Use Vaping status: Never Used Substance and Sexual Activity Alcohol use: Not Currently Alcohol/week: 7.0 - 14.0 standard drinks of alcohol Types: 7 - 14 Standard drinks or equivalent per week Comment: caffeine intake: 1-2 cups per day of coffee/ soda Drug use: Not on file Sexual activity: Defer Other Topics Concern Not on file Social History Narrative Not on file Social Drivers of Health Financial Resource Strain: Not on file Food Insecurity: Not on file Transportation Needs: Not on file Physical Activity: Not on file Stress: Not on file Social Connections: Not on file Intimate Partner Violence: Not on file Housing Stability: Not on file ROS: General: denies fever, chills, fatigue, malaise Gastrointestinal: denies abdominal pain, ulcers, or changes in appetite or bowel habits Positive history of steatosis Musculoskeletal: Positive history of osteoarthritis to the knee hip and back Cardiovascular: denies CP, palpitations, irregular rhythms OBJECTIVE LE EXAM: DERM: Positive hair growth to b/l feet with good skin turgor noted. Negative openings in skin. Nummular lesion measuring at the left sub 5th metatarsal region measuring 0.1 cm x 0.1 cm. Dorsum of left great toe DIPJ region has area of bony prominence that measure 0.4 cm x 0.4 cm VASC: Palpable pedal pulsed b/l with warm to cool tibia to toes b/l NEURO: Gross sensation intact digits 1-10 and b/l feet ORTHO: +5/5 DF/PF/IN/EV right, +5/5 DF/PF/IN/EV left. 20 degrees inversion and 10 degrees eversion STJ b/l. Ankle ROM less than 10 degrees b/l. Positive pain on palpation to left foot lesion Diminished pain on palpation left sub 1st metatarsal region and area of sesamoids with absent fat pad Minimal pain on palpation left great toe bony exostosis XRAY: US: ASSESSMENT 1. Verruca plantaris 2. Foot pain, left 3. Capsulitis of metatarsophalangeal (MTP) joint of left foot 4. Exostosis of left foot PLAN Application of salinocaine acid medication to lesion/lesions located at left foot Informed pt of risks and benefits of procedure including high reoccurence rate, infection, pain and consent given. Application of DSD post procedure. Patient to continue with oral anti - inflammatories as needed for pain and recommended OTC medications such as tylenol or Ibuprofen Discussed conservative and surgical treatment options for patient today including postoperative time frame and surgical procedure in detail. Patient may continue with conservative treatments including [id number] anti-inflammatories and other treatments suggested today. Patient may want to be scheduled for surgical intervention in the near future. Discussed possible surgical excision of lesion in future if problematic Redd Sandoval DPM documented in this encounter [facility] 03-18-2024 History of Presen t illness Narrative Patient: Neisha Lima Ashanti : 1960 PCP: Lucretia Lee MD SUBJECTIVE Neisha Lima Ashanti 63 y.o. presents today for follow up of skin lesion/neoplasm of unknown origin to the left foot Pt states that previous treatment of acid tx with some improvement Pt rates pain the pain on a 1-10 scale an intensity of 3 Pt presents today for followup. . Patient also has pain to the sub 1st metatarsal region of the left foot with history of 1st MPJ fusion and 2nd hammertoe surgery in the past. Discussed possible orthotics and possible gel inserts . Allergies: No Known Allergies Past Medical History: Past Medical History: Diagnosis Date Arthritis COVID-19 11/2020 Depression ([facility]) High cholesterol ([facility]) Obesity Thyroid disease (CMS/HCC) Medications: Current Outpatient Medications: celecoxib (CeleBREX) 200 MG capsule, , Disp: , Rfl: citalopram (CeleXA) 10 MG tablet, Take 10 mg by mouth in the morning., Disp: , Rfl: Crestor 20 MG tablet, 1 tablet Orally, Disp: , Rfl: ferrous sulfate 325 (65 Fe) MG tablet, every 12 (twelve) hours., Disp: , Rfl: lisinopril 10 MG tablet, 1 tablet Orally, Disp: , Rfl: magnesium 250 MG tablet, 1 capsule with a meal Orally, Disp: , Rfl: metoprolol tartrate (Lopressor) 50 MG tablet, every 12 (twelve) hours., Disp: , Rfl: pantoprazole (ProtoNix) 40 MG EC tablet, 1 (one) time each day at the same time., Disp: , Rfl: Synthroid 112 MCG tablet, , Disp: , Rfl: Social History: Social History Socioeconomic History Marital status: Spouse name: Not on file Number of children: Not on file Years of education: Not on file Highest education level: Not on file Occupational History Not on file Tobacco Use Smoking status: Never Smokeless tobacco: Never Vaping Use Vaping status: Never Used Substance and Sexual Activity Alcohol use: Not Currently Alcohol/week: 7.0 - 14.0 standard drinks of alcohol Types: 7 - 14 Standard drinks or equivalent per week Comment: caffeine intake: 1-2 cups per day of coffee/ soda Drug use: Not on file Sexual activity: Defer Other Topics Concern Not on file Social History Narrative Not on file Social Drivers of Health Financial Resource Strain: Not on file Food Insecurity: Not on file Transportation Needs: Not on file Physical Activity: Not on file Stress: Not on file Social Connections: Not on file Intimate Partner Violence: Not on file Housing Stability: Not on file ROS: General: denies fever, chills, fatigue, malaise Gastrointestinal: denies abdominal pain, ulcers, or changes in appetite or bowel habits Positive history of steatosis Musculoskeletal: Positive history of osteoarthritis to the knee hip and back Cardiovascular: denies CP, palpitations, irregular rhythms OBJECTIVE LE EXAM: DERM: Positive hair growth to b/l feet with good skin turgor noted. Negative openings in skin. Nummular lesion measuring at the left sub 5th metatarsal region measuring 0.1 cm x 0.2 cm. VASC: Palpable pedal pulsed b/l with warm to cool tibia to toes b/l NEURO: Gross sensation intact digits 1-10 and b/l feet ORTHO: +5/5 DF/PF/IN/EV right, +5/5 DF/PF/IN/EV left. 20 degrees inversion and 10 degrees eversion STJ b/l. Ankle ROM less than 10 degrees b/l. Positive pain on palpation to left foot lesion Diminished pain on palpation left sub 1st metatarsal region and area of sesamoids with absent fat pad XRAY: US: ASSESSMENT 1. Verruca plantaris 2. Foot pain, left 3. Capsulitis of metatarsophalangeal (MTP) joint of left foot PLAN Application of salinocaine acid medication to lesion/lesions located at left foot Informed pt of risks and benefits of procedure including high reoccurence rate, infection, pain and consent given. Application of DSD post procedure. Patient to continue with oral anti - inflammatories as needed for pain and recommended OTC medications such as tylenol or Ibuprofen Redd Sandoval DPM documented in this encounter [facility] 03-04-2024 History of Presen t illness Narrative Patient: Neisha Janie Quintana : 1960 PCP: Lucretia Lee MD SUBJECTIVE Neisha Quintana 63 y.o. presents today for follow up of skin lesion/neoplasm of unknown origin to the left foot Pt states that previous treatment of acid tx with some improvement Pt rates pain the pain on a 1-10 scale an intensity of 5 Pt presents today for followup. . Patient also has pain to the sub 1st metatarsal region of the left foot with history of 1st MPJ fusion and 2nd hammertoe surgery in the past. Discussed possible orthotics and possible gel inserts . Allergies: No Known Allergies Past Medical History: Past Medical History: Diagnosis Date Arthritis COVID-19 11/2020 Depression ([facility]) High cholesterol (CMS/HCC) Obesity Thyroid disease (CMS/HCC) Medications: Current Outpatient Medications: celecoxib (CeleBREX) 200 MG capsule, , Disp: , Rfl: citalopram (CeleXA) 10 MG tablet, Take 10 mg by mouth in the morning., Disp: , Rfl: Crestor 20 MG tablet, 1 tablet Orally, Disp: , Rfl: ferrous sulfate 325 (65 Fe) MG tablet, every 12 (twelve) hours., Disp: , Rfl: lisinopril 10 MG tablet, 1 tablet Orally, Disp: , Rfl: magnesium 250 MG tablet, 1 capsule with a meal Orally, Disp: , Rfl: metoprolol tartrate (Lopressor) 50 MG tablet, every 12 (twelve) hours., Disp: , Rfl: pantoprazole (ProtoNix) 40 MG EC tablet, 1 (one) time each day at the same time., Disp: , Rfl: Synthroid 112 MCG tablet, , Disp: , Rfl: Social History: Social History Socioeconomic History Marital status: Spouse name: Not on file Number of children: Not on file Years of education: Not on file Highest education level: Not on file Occupational History Not on file Tobacco Use Smoking status: Never Smokeless tobacco: Never Vaping Use Vaping status: Never Used Substance and Sexual Activity Alcohol use: Not Currently Alcohol/week: 7.0 - 14.0 standard drinks of alcohol Types: 7 - 14 Standard drinks or equivalent per week Comment: caffeine intake: 1-2 cups per day of coffee/ soda Drug use: Not on file Sexual activity: Defer Other Topics Concern Not on file Social History Narrative Not on file Social Drivers of Health Financial Resource Strain: Not on file Food Insecurity: Not on file Transportation Needs: Not on file Physical Activity: Not on file Stress: Not on file Social Connections: Not on file Intimate Partner Violence: Not on file Housing Stability: Not on file ROS: General: denies fever, chills, fatigue, malaise Gastrointestinal: denies abdominal pain, ulcers, or changes in appetite or bowel habits Positive history of steatosis Musculoskeletal: Positive history of osteoarthritis to the knee hip and back Cardiovascular: denies CP, palpitations, irregular rhythms OBJECTIVE LE EXAM: DERM: Positive hair growth to b/l feet with good skin turgor noted. Negative openings in skin. Nummular lesion measuring at the left sub 5th metatarsal region measuring 0.2 cm x 0.2 cm. VASC: Palpable pedal pulsed b/l with warm to cool tibia to toes b/l NEURO: Gross sensation intact digits 1-10 and b/l feet ORTHO: +5/5 DF/PF/IN/EV right, +5/5 DF/PF/IN/EV left. 20 degrees inversion and 10 degrees eversion STJ b/l. Ankle ROM less than 10 degrees b/l. Positive pain on palpation to left foot lesion Positive palpation left sub 1st metatarsal region and area of sesamoids with absent fat pad XRAY: US: ASSESSMENT 1. Verruca plantaris 2. Foot pain, left 3. Capsulitis of metatarsophalangeal (MTP) joint of left foot PLAN Application of salinocaine acid medication to lesion/lesions located at left foot Informed pt of risks and benefits of procedure including high reoccurence rate, infection, pain and consent given. Application of DSD post procedure. Patient to continue with oral anti - inflammatories as needed for pain and recommended OTC medications such as tylenol or Ibuprofen Redd Sandoval DPM documented in this encounter [facility] 02-04-2024 History of Presen t illness Narrative Patient: Neisha Lima Ashanti : 1960 PCP: Lucretia Lee MD SUBJECTIVE This is a 63 y.o. female that presents today for a chief complaint of painful lesion to lateral aspect of the left foot for the past year and states it is sharp and painful ambulation rates pain up to an 8/10. Patient also has pain to the sub 1st metatarsal region of the left foot with history of 1st MPJ fusion and 2nd hammertoe surgery in the past. Allergies: No Known Allergies Past Medical History: Past Medical History: Diagnosis Date Arthritis COVID-19 11/2020 Depression (CMS/HCC) High cholesterol (CMS/HCC) Obesity Thyroid disease (CMS/HCC) Medications: Current Outpatient Medications: celecoxib (CeleBREX) 200 MG capsule, , Disp: , Rfl: citalopram (CeleXA) 10 MG tablet, Take 10 mg by mouth in the morning., Disp: , Rfl: Crestor 20 MG tablet, 1 tablet Orally, Disp: , Rfl: ferrous sulfate 325 (65 Fe) MG tablet, every 12 (twelve) hours., Disp: , Rfl: lisinopril 10 MG tablet, 1 tablet Orally, Disp: , Rfl: magnesium 250 MG tablet, 1 capsule with a meal Orally, Disp: , Rfl: metoprolol tartrate (Lopressor) 50 MG tablet, every 12 (twelve) hours., Disp: , Rfl: pantoprazole (ProtoNix) 40 MG EC tablet, 1 (one) time each day at the same time., Disp: , Rfl: Synthroid 112 MCG tablet, , Disp: , Rfl: Social History: Social History Socioeconomic History Marital status: Spouse name: Not on file Number of children: Not on file Years of education: Not on file Highest education level: Not on file Occupational History Not on file Tobacco Use Smoking status: Never Smokeless tobacco: Never Vaping Use Vaping status: Never Used Substance and Sexual Activity Alcohol use: Not Currently Alcohol/week: 7.0 - 14.0 standard drinks of alcohol Types: 7 - 14 Standard drinks or equivalent per week Comment: caffeine intake: 1-2 cups per day of coffee/ soda Drug use: Not on file Sexual activity: Defer Other Topics Concern Not on file Social History Narrative Not on file Social Drivers of Health Financial Resource Strain: Not on file Food Insecurity: Not on file Transportation Needs: Not on file Physical Activity: Not on file Stress: Not on file Social Connections: Not on file Intimate Partner Violence: Not on file Housing Stability: Not on file ROS: General: denies fever, chills, fatigue, malaise Gastrointestinal: denies abdominal pain, ulcers, or changes in appetite or bowel habits Positive history of steatosis Musculoskeletal: Positive history of osteoarthritis to the knee hip and back Cardiovascular: denies CP, palpitations, irregular rhythms OBJECTIVE LE EXAM: DERM: Positive hair growth to b/l feet with good skin turgor noted. Negative openings in skin. Nummular lesion measuring at the left sub 5th metatarsal region measuring 0.2 cm x 0.2 cm. VASC: Palpable pedal pulsed b/l with warm to cool tibia to toes b/l NEURO: Gross sensation intact digits 1-10 and b/l feet ORTHO: +5/5 DF/PF/IN/EV right, +5/5 DF/PF/IN/EV left. 20 degrees inversion and 10 degrees eversion STJ b/l. Ankle ROM less than 10 degrees b/l. Positive pain on palpation to left foot lesion Positive palpation left sub 1st metatarsal region and area of sesamoids with absent fat pad XRAY: US: ASSESSMENT 1. Neoplasm of uncertain behavior of skin 2. Verruca plantaris 3. Foot pain, left 4. Capsulitis of metatarsophalangeal (MTP) joint of left foot PLAN Discussed condition in detail with patient today and discussed conservative treatments and possible excisional biopsy of lesion in the future for pathological diagnosis of specimen. Patient may take [id number] NSAID p.r.n. for pain Application of salinocaine acid medication to lesion/lesions located at left foot Informed pt of risks and benefits of procedure including high reoccurence rate, infection, pain and consent given. Application of DSD post procedure. Discussed possible custom orthotics and patient may consider with metatarsal pad and offloading to the sub 1st metatarsal region of the foot otherwise patient is to continue with gel insoles at this time Redd Sandoval DPM documented in this encounter [facility] 11-24-2023 Note Right Eye Quality was good. Scan locations included subfoveal. Progression has been stable. Findings include normal observations. Left Eye Quality was good. Scan locations included subfoveal. Progression has been stable. Findings include abnormal foveal contour, epiretinal membrane. Notes Increased macular volume left eye (OS). [facility] 11-24-2023 History of Presen t illness Narrative Images from the original note were not included. Assessment/Plan Diagnoses and all orders for this visit: Age-related nuclear cataract of both eyes - Cataract, OU: Observe for now without intervention. The patient was advised to contact us if any change or worsening of vision Epiretinal membrane (ERM) of left eye - The condition and pathophysiology were described to the patient. An epiretinal membrane (ERM) has the potential to influence quality of vision including acuity as well as metamorphopsia. Advised observation at this time. Dry eyes - Dry Eyes OU -- Environmental changes to minimize dryness and exposure and the use of artificial tears were recommended. Blepharitis of upper and lower eyelids of both eyes, unspecified type - Blepharitis, posterior type OU - The patient exhibits inspissated meibomian glands. Warm compresses, lid massage and lid scrubs were recommended. documented in this encounter [facility] 12-24-2022 Evaluation note Encounter Date Diagnosis Assessment Notes Nov, Lumbar stenosis with neurogenic claudication (ICD-10 - M48.062) [employer] Other chixc complaint Narrative - Reported* NEISHA QUINTANA is being seen for a cardiovascular evaluation . PIERO FU POC SURGERY NOTSCHEDULED YET. * Patient is a 60-year-old female seen in cardiology consultation at the request of Dr. Lee for preoperative risk assessment and evaluation of abnormal treadmill stress test. Patient would like to proceed with elective right total hip replacement. * She and her ambulate at least 3 less than 5 miles 4-5 times a week walking in the local park as well as around the local town. She describes no chest heaviness, pressure discomfort with this type of leisurely walking activity. * There is no prior history of myocardial infarction, revascularization, stroke, thromboembolic or bleeding disorder. * Her only complaint is palpitations that seem to occur on a sporadic daily to weekly basis. They arenot sustained, she describes no history of true arrhythmia or atrial fibrillation in the past * Recent stress testing was performed details of [...] dyspnea on the Perez protocol (completely normal) * Today's ECG demonstrates sinus bradycardia but is otherwise completely normal. She is treated for hypertension with lisinopril, metoprolol for her palpitations that have been going on for several years (nothing new) rosuvastatin for cholesterol and Synthroid for hypothyroidism. * She otherwise presents to orthopedic surgery is very low risk for any major adverse cardiac events with revised Prabhakar criteria of 0.9% or very low risk. * I do not believe she warrants any further imaging or testing at this time as she is so asymptomaticand exercises greater than or equal to 7 METs with walking on a daily basis. We did scholarship counselor her on dietary discretion, weight loss and exercise following her hip replacement, we will follow-up as needed. -[facility]-Payam Vila DO Work Phone: Evaluation note* Diagnosis Capsulitis of metatarsophalangeal (MTP) joint of left foot- Primary Neoplasm of uncertain behavior of skin Verruca plantaris Plantar wart Foot pain, left Pain in soft tissues of limb [facility] Diagnosis Verruca plantaris- Primary Plantar wart Foot pain, left Pain in soft tissues of limb Capsulitis of metatarsophalangeal (MTP) joint of left foot [facility]* Diagnosis Age-related nuclear cataract of both eyes- Primary Epiretinal membrane (ERM) of left eye Dry eyes Unspecified tear film insufficiency Blepharitis of upper and lower eyelids of both eyes, unspecified type [facility] Diagnosis Verruca plantaris- Primary Plantar wart Foot pain, left Pain in soft tissues of limb Capsulitis of metatarsophalangeal (MTP) joint of left foot [facility] Diagnosis Exostosis of left foot- Primary Verruca plantaris Plantar wart Foot pain, left Pain in soft tissues of limb Capsulitis of metatarsophalangeal (MTP) joint of left foot [facility] Diagnosis Verruca plantaris- Primary Plantar wart Foot pain, left Pain in soft tissues of limb [facility]* Diagnosis Chronic pain of both shoulders- Primary Left cervical radiculopathy Primary osteoarthritis of right shoulder [facility]* Diagnosis Cervical radiculopathy due to degenerative joint disease of spine- Primary Claustrophobia (CMS/HCC) Other isolated or specific phobias Left cervical radiculopathy [facility]* Diagnosis Left cervical radiculopathy- Primary Herniated nucleus pulposus, C5-6 left Displacement of cervical intervertebral disc without myelopathy DDD (degenerative disc disease), cervical Degeneration of cervical intervertebral disc [facility]* Diagnosis Age-related nuclear cataract of both eyes- Primary Epiretinal membrane (ERM) of left eye Dry eyes Unspecified tear film insufficiency Blepharitis of upper and lower eyelids of both eyes, unspecified type [facility] N[facility] - Reported* Type Description Date Medical History Arthritis Medical History Thyroid disease Medical History Depression Medical History high cholesterol Medical History obesity Medical History high blood pressure Medical History anxiety Surgical History Procedure:Meniscus Surgery;Dise ase: 2004 Surgical History Procedure:B/L bunionectomy;Dise ase: 1983 Surgical History Procedure:laparotomy;Disease: 1 984 Surgical History Procedure:Laminectomy L5-S1- Dr Jayden Chester 2004 Surgical History Procedure:bunionectomy/hammerto e repair;Disease: 2008 Surgical History R TKA MTP 06/10/2016 Hospitalization History See Sx Hx [employer] Other Family History No Family History Records [...] section and content) DATE CREATED AUTHOR 07/12/2021 [employer] DATE CREATED AUTHOR AUTHOR'S ORGANIZ ATION 03/26/2022 [facility] DATE CREATED AUTHOR AUTHOR'S ORGANIZ ATION 02/25/2024 [facility] DATE CREATED AUTHOR AUTHOR'S ORGANIZ ATION 09/19/2024 [facility] DATE CREATED AUTHOR AUTHOR'S ORGANIZ ATION 11/27/2024 [facility] EPIC REASON FOR VISIT (unrecogniz ed section and content) Reason Comments Foot Callouses Lt Gt callous/ corn Reason Comments Follow-up 2wk lesions Reason Comments Eye Exam Reason Comments Follow-up Lesion check Reason Comments Follow-up Lt lesion check Reason Comments Pain Reason Comments Follow-up [facility] 08/05/24 Care Teams (unrecognized sec tion and content) [employer] Relationship Specialty Start Date End Date Lucretia Lee MD [address] [place] [address] PCP - General Family Medicine 09/04/22 [employer] Relationship Specialty Start Date End Date Lucretia Lee MD [address] [place] [address] PCP - General Family Medicine 09/04/22 [employer] Relationship Specialty Start Date End Date Lucretia Lee MD [address] [place] [address] PCP - General Family Medicine 09/04/22 [employer] Relationship Specialty Start Date End Date Lucretia Lee MD [address] [place] [address] PCP - General Family Medicine 09/04/22 [employer] Relationship Specialty Start Date End Date Lucretia Lee MD [address] [place] [address] PCP - General Family Medicine 09/04/22 [employer] Relationship Specialty Start Date End Date Lucretia Lee MD [address] [place] [address] PCP - General Family Medicine 09/04/22 [employer] Relationship Specialty Start Date End Date Lucretia Lee MD [address] [place] [facility] [address] PCP - General Family Medicine 09/04/22 [employer] Relationship Specialty Start Date End Date Lucretia Lee MD [address] [place] [facility] [address] PCP - General Family Medicine 09/04/22 [employer] Relationship Specialty Start Date End Date Lucretia Lee MD [address] [place] [facility] [address] PCP - General Family Medicine 08/03/24 [employer] Relationship Specialty Start Date End Date Lucretia Lee MD [address] [place] [facility] [address] PCP - General Family Medicine 08/03/24 [employer] Relationship Specialty Start Date End Date Lucretia Lee MD [address] [place] [facility] [address] PCP - General Family Medicine 08/03/24 [employer] Relationship Specialty Start Date End Date Lucretia Lee MD [address] [place] [facility] [address] PCP - General Family Medicine 08/03/24 [employer] Relationship Specialty Start Date End Date Lucretia Lee MD [address] [place] [facility] [address] PCP - General Family Medicine 08/03/24 [employer] Relationship Specialty Start Date End Date Lucretia Lee MD [address] [place] [address] PCP - General Family Medicine 08/03/24 FOR RECORDS PERTAINING TO PATIENTS WHO ARE [...] BE BASED ON THE PRIMARY CLINICAL RECORDS. [employer] [facility]. provides no warranty or guarantee of the accuracy or completeness of information in this document.
[2024-12-20 10:20] LABS: Hematocrit 40.1 % (36.0-48.0); Hemoglobin 13.0 g/dL (12.0-16.0); Immature Granulocytes Abs Auto 0.02 10^3/uL (0.00-0.03); Immature Granulocytes Pct Auto 0.3 % (0.0-0.5); Lymphocytes Absolute Auto 2.0 10^3/uL (1.2-3.8); Mean Corpuscular HGB Conc 32.4 g/dL (29.9-35.2); Mean Corpuscular Hemoglobin 27.9 pg (26.7-34.0); Mean Corpuscular Volume 86.1 fL (81.0-99.0); Platelet Count 302 10^3/uL (150-450); Red Blood Count 4.66 10^6/uL (4.20-5.40); White Blood Count 6.2 10^3/uL (4.0-11.0)
[2024-12-20 11:02] LABS: Alanine Aminotransferase 58 U/L (14-59); Albumin Globulin Ratio 1.0; Albumin Level 3.7 g/dL (3.4-5.0); Alkaline Phosphatase 105 U/L (46-116); Anion Gap 11.7; Aspartate Amino Transferase 38 U/L (15-37); Blood Urea Nitrogen 11.0 mg/dL (7.0-18.0); Calcium 9.2 mg/dL (8.5-10.1); Carbon Dioxide 28.3 mmol/L (21.0-32.0); Chloride 105 mmol/L (98-107); Cholesterol 155 mg/dL (<=200); Estimated GFR (African America >60 (>=60 mL/min/1.73m^2); Estimated GFR (Non-African Ame >60 (>=60 mL/min/1.73m^2); Free T3 4.56 pg/mL (2.18-3.98); Globulin 3.6 g/dL; Glucose 98 mg/dL (74-106); HDL Cholesterol 48 mg/dL (40-60); Potassium 4.0 mmol/L (3.5-5.1); Sodium 141 mmol/L (136-145); Thyroid Stimulating Hormone 0.044 uIU/mL (0.358-3.740); Total Protein 7.3 g/dL (6.4-8.2); Triglycerides 106 mg/dL (<=150); VLDL CHOLESTEROL 21.2 mg/dL
[2024-12-20 11:32] LABS: Iron 41.0 ug/dL (50.0-170.0)
== END 2024-12-20 09:16 | disposition home or self-care (01) ==
LOC: LAB 09:18
PROVIDERS: PCP Family Medicine; Visit Provider Family Medicine
DX: E78.2 Mixed hyperlipidemia (principal); E03.9 Hypothyroidism, unspecified; M17.9 Osteoarthritis of knee, unspecified; K76.0 Fatty (change of) liver, not elsewhere classified; F32.A Depression, unspecified
CPT/HCPCS: 36415; 80053; 80061; 83036; 83525; 83540; 84436; 84443; 84481; 85025

== ENCOUNTER 2025-01-20 09:27 | Outpatient (OUT) | payer MEDICARE, SELFPAY ==
--- OUTSIDE RECORDS SUMMARY | 2025-01-20 09:29 | XMS_ITS | Clinical Summary ---
Author Organization [facility] Address [address] [place] [address] Phone Care Team Providers Care Ladle Operator Name Role Phone Jaciel Lee MD Primary Care Provider [phone] Social History Tobacco UseTypesPacks/DayYears UsedDateSmoking Tobacco: Never Assessed CommentsUnknownSex and Gender InformationValueDate RecordedSex Assigned at Not on fileLegal ZjyDwtbyz88/26/2022 2:09 PM ESTGender IdentityNot on fileSexual OrientationNot on file Last Filed Vital Signs Vital SignReadingTime TakenCommentsBlood Srhokgqa820/8004 11:08 AM EDT Iwatq1447 11:08 AM EDTTemperature--Respiratory Rate--Oxygen Saturation-- Inhaled Oxygen Concentration--Mstuyz84.5 kg (188 lb 9.6 oz)07/11/2021 11:08 AM CMEFchpdg695.1 cm (5' 5 )07/11/2021 11:08 AM EDTBody Mass Index31.3804 11:08 AM EDT Plan of Treatment Not on file Care Teams Team MemberRelationshipSpecialtyStart DateEnd Date Jaciel Lee MD [address] [id number] PCP - [facility]07/11/21
--- NOTE | 2025-01-20 09:30 | MR_ITS ---
The [address] [address] Patient Name: GRACY QUINTANA MRN: [id number] date: 1960 Sex: F Assigned Patient Location: MRI Current Patient Location: MRI Accession/Order Number: [id number] Exam Date: 01/20/2025 09:35 Report Date: 01/20/2025 11:38 At the request of: LUCRETIA HARRY MD Procedure: MR head/brain wo con EXAMINATION: MRI OF THE BRAIN WITHOUT CONTRAST CLINICAL HISTORY: Short term memory loss and intermittent aphasia COMPARISON: None TECHNIQUE: Multiecho, multiplanar imaging of the brain was performed without enhancement. There is minor cortical atrophy. The ventricles are within normal for size though there is slight asymmetry on the right and bowing of the septum pellucidum to the left. A few tiny foci of increased T2 and FLAIR signal are visualized within the white matter. This is nonspecific though may be minimal microvascular disease. There are no additional areas of abnormal signal intensity within the supra- or infratentorial brain. No restricted diffusion is identified to suggest a recent ischemic event. There is increased CSF within the sella with flattening of the pituitary which may be partial empty sella. A prominent cisterna magna is visualized. There are no other extra-axial collections or mass effect. The imaged paranasal sinuses are clear. There are a few mastoid air cells on the left with increased T2 signal with could be inflammatory. MR/MR head/brain wo con IMPRESSION: MINIMAL ATROPHY AND NONSPECIFIC WHITE MATTER CHANGE. NO OTHER ACUTE INTRACRANIAL FINDINGS. Impression dictated by: Rajani Marsh M.D. 01/20/2025 11:38 AM Dictation Location: [place] [address] Electronically authenticated by: [id number] Date: 01/20/2025 11:38
--- OUTSIDE RECORDS SUMMARY | 2025-01-20 09:30 | XMS_ITS | Patient Health Record ---
Author Organization The [facility] in [place] Address [address] [place] [address] Care Team Providers Care Asbestos Handler Name Role Phone Gavino Lee Primary Care Provider Allergies No Known Allergies Results Component Value Reference Range Notes FREE T3 Reviewed date:12/20/2024 12:49:56 PM Interpretation: Performing Lab: Notes/Report: [facility] , Free T3 4.56 2.18-3.98 pg/mL Performing Lab:see note - [facility] LBGLYCOHEMOGLOBIN A1C Reviewed date:12/20/2024 12:49:56 PM Interpretation: Performing Lab: Notes/Report: [facility] ,Glycohemoglobin A1C5.74.5-6.2 % ADA RECOMMENDED LIMIT 4.0 - 6.0 ADA THERAPEUTIC TARGET < 7.0 ACTION SUGGESTED > 7.0 Estimated Average Zljucub468Sluuramjbm Lab:see note - [facility] LB IRON Reviewed date:12/20/2024 12:49:56 PM Interpretation: Performing Lab: Notes/Report: [facility] ,Iron41.050.0-170.0 ug/dLPerforming Lab:see Critical access hospital - [facility] LB LIPID PROFILE Reviewed date:12/20/2024 12:49:56 PM Interpretation: Performing Lab: Notes/Report: [facility] ,Wczwgzjzjgszb670<=150 mg/aUOenuzrhprts161<=200 mg/dLHDL Lvizsawwyez3664-28 mg/dL > or =60 mg/dl - LOW CARDIOVASCULAR RISK <40 mg/dl - HIGH CARDIOVASCULAR RISK LDL Cholesterol Kgqrhjwmbl99.8 <100 mg/dl OPTIMAL 100-129 mg/dl NEAR OR ABOVE OPTIMAL 130-159 mg/dl BORDERLINE HIGH 160-189 mg/dl HIGH >190 mg/dl VERY HIGH VLDL TRLLCZVOLUE75.2Chol HDL Ratio3.2 3.3 - 4.4 LOW RISK 4.4 - 7.1 AVERAGE RISK 7.1 - 11.0 MODERATE RISK >11.0 HIGH RISK Performing [facility] LBPROF 14(COMP METB) Reviewed date:12/20/2024 12:49:56 PM Interpretation: Performing Lab: Notes/Report: [facility] ,Pcxppq025096-460 mmol/LPotassium4.03.5-5.1 mmol/YSpkdsicz44206-530 mmol/LCarbon Uqdmgfu01.321.0-32.0 mmol/LAnion Gap11.3Pfebvvf8574-986 mg/dLBlood Urea Nitrogen 11.07.0-18.0 mg/dLCreatinine0.720.55-1.02 mg/dLEstimated GFR ( Leida>60 >=60 mL/min/1.73m 2Estimated GFR (Non- Wendi>60>=60 mL/min/1.73m 2BUN Creatinine Ratio15.9Xqrlwls2.28.5-10.1 mg/dLBilirubin Total0.60.2-1.0 mg/dL Aspartate Amino Eheuevqchjc6567-97 U/LAlanine Dleflabikohsxyom6377-02 U/L Alkaline Lnmakftswwo13064-672 U/LTotal Protein7.36.4-8.2 g/dLAlbumin Level3.7 3.4-5.0 g/dLGlobulin3.6Albumin Globulin Ratio1.0Performing Lab:see note - [facility] LBT4 Reviewed date:12/20/2024 12:49:56 PM Interpretation: Performing Lab: Notes/Report: [facility] ,T4 Thyroxine8.104.80-13.90 ug/dLPerforming Lab:[facility] LBTSH Reviewed date:12/20/2024 12:49:56 PM Interpretation: Performing Lab: Notes/Report: [facility] ,Thyroid Stimulating Hormone0.0440.358-3.740 uIU/mLPerforming Lab:see note - [facility] LBINSULIN Reviewed date:12/21/2024 12:56:02 PM Interpretation: Performing Lab: Notes/Report: [facility] ,Insulin9.52.6-24.9 uIU/mL Performed at: [address] [id number] Mid Level Clinician: Martin Logan PhD, Phone: [phone] Performing Lab:see note - [facility] LBCBC AUTO DIFF Reviewed date:12/20/2024 12:49:56 PM Interpretation: Performing Lab: Notes/Report: [facility] ,White Blood Count6.24.0-11.0 10 3/uLRed Blood Count4.664.20-5.40 10 6/uL Pcrnjurftm91.012.0-16.0 g/cRYqszddtqea66.136.0-48.0 %Mean Corpuscular Urkjfh77.1 81.0-99.0 fLMean Corpuscular Axjwxpalqf74.926.7-34.0 pgMean Corpuscular HGB Conc 32.429.9-35.2 g/dLRed Cell Distribution Width15.411.0-15.0 %Platelet Ncyyj757 150-450 10 3/uLMean Platelet Pnvowq41.09.5-13.5 fLNeutrophils Percent Auto54.8 43.0-75.0 %Lymphocytes Percent Auto32.720.5-60.0 %Monocytes Percent Auto9.51.7- 12.0 %Eosinophils Percent Auto1.90.9-7.0 %Basophils Percent Auto0.80.2-2.0 % Immature Granulocytes Pct Auto0.30.0-0.5 %Neutrophils Absolute Auto3.41.4-6.5 10 3/uLLymphocytes Absolute Auto2.01.2-3.8 10 3/uLMonocytes Absolute Auto0.60.3-0.8 10 3/uLEosinophils Absolute Auto0.10.0-0.7 10 3/uLBasophils Absolute Auto0.10.0- 0.1 10 3/uLImmature Granulocytes Abs Auto0.020.00-0.03 10 3/uLPerforming Lab:see noteML - [facility] LB Reason For Referral No Information Medications Medication SIG (Take, Route, Frequency, Duration) Notes Start Date End Date Status Metoprolol Tartrate 50 mg TAKE 1 TABLET TWICE A DAY ActiveProtonix 40 MG1 tablet Orally Once a day; Duration: 30 days09/06/2024 ActiveSemaglutide 0.3 mg/0.25mL5ActiveRosuvastatin Calcium 20 mgTAKE 1 TABLET DAILYActiveCelecoxib 200 mgTAKE 1 CAPSULE ONCE TO TWICE A DAY; Duration: 90 daysActiveCitalopram Hydrobromide 10 mgTAKE 1 TABLET DAILY; Duration: 30 days ActiveLiothyronine Sodium 5 MCGTAKE 1 TABLETS ONCE DAILY ON AN EMPTY STOMACH; Duration: 90 daysActiveHydrocortisone Erasto-Pramoxine 1-1 %1 application Externally Three times a day4ActiveLevothyroxine Sodium 100 MCGTAKE 1 TABLET DAILYActiveMounjaro 2.5 MG/0.5ML2.5 mg Subcutaneous weeklyFOr Dx K76.0 and G47.3005ActiveValium 10 MG1 tablet as needed Orally once about 1 hour before procedure; Duration: 1 days5ActiveLisinopril 10 MGTAKE 1 TABLET DAILY; Duration: 90Active Social History Tobacco Use: Social History Observation Description Date Details (start date - stop date) Never Smoker NA - NA Tobacco Use/Smoking Question Answer Notes Patient is a nonsmoker Alcohol Screen (Audit-C) Question Answer Notes Did you have a drink containing alcohol in the p ast year? Yes How often did you have 6 or more drinks on one occasion in the past year?Never (0 point)How many drinks did you have on a typical day when you were drinking in the past year?1 or 2 drinks (0 point)How often did you have a drink containing alcohol in the past year?Weekly (3 points)Hcdwud8ZhgmahxfjloykfLbvewcbbTPUTV-C (Standard) Question Answer Notes Did you have a drink containing alcohol in the p ast year? Yes How often did you have six or more drinks on one occasion in the past year?Never (0 point)How many drinks did you have on a typical day when you were drinking in the past year?1 or 2 drinks (0 point)How often did you have a drink containing alcohol in the past year?Monthly or less (1 point)Bvbwqy6HkezlpdkpwkxykPudxiwpy Problems Problem Type SNOMED Code ICD Code Onset Dates Problem Status W/U Status Risk Notes Problem Information temporarily unavaila ble Degenerative disc disease, lumbar (722.52) ActiveconfirmedProblemInformation temporarily unavailableMixed hyperlipidemia (E78.2)ActiveconfirmedProblemInformation temporarily unavailableHypothyroidism (E03.9)ActiveconfirmedProblemInformation temporarily unavailableAnxiety (F41.9) ActiveconfirmedProblemInformation temporarily unavailableSleep apnea (G47.30) ActiveconfirmedProblemInformation temporarily unavailableKnee osteoarthritis (M17.9)ActiveconfirmedProblemInformation temporarily unavailableArthralgia (M25.50)ActiveconfirmedProblemInformation temporarily unavailableFatty liver (K76.0)ActiveconfirmedProblemInformation temporarily unavailableWell adult (Z00.00)ActiveconfirmedProblemInformation temporarily unavailableShingles (B02.9)ActiveconfirmedProblemInformation temporarily unavailableDiverticulitis (K57.92)ActiveconfirmedProblemInformation temporarily unavailableMemory loss (R41.3)ActiveconfirmedProblemInformation temporarily unavailable Spondylolisthesis (M43.10)ActiveconfirmedProblemInformation temporarily unavailableRight upper quadrant abdominal pain (R10.11)ActiveconfirmedProblem Information temporarily unavailableBorderline diabetes (R73.09)Activeconfirmed ProblemInformation temporarily unavailableHemorrhoid (K64.9)Activeconfirmed ProblemInformation temporarily unavailableFibrocystic breast disease (N60.19) ActiveconfirmedProblemInformation temporarily unavailableAltered mental state (R41.82)ActiveconfirmedProblemInformation temporarily unavailableDepression (F32.A)Activeconfirmed Vital Signs Blood pressure diastolic 92 mm Hg 12/20/2024 Qayirq31 in12/20/2024lood pressure ixwntzlw065 mm Hg12/20/20242833Bxpcjv502.2 lbs 12/20/2024BMI33.48 kg/m212/20/2024 Encounters Encounter Location Date Provider Diagnosis [facility] [address] [place] [address] 10/03/[address] [facility] [place] [address] 12/20/2024[facility]Hypothyroidism E03.9B[facility] [place] [address]/05/2024Doug HoyMemory loss R41.3B[facility] [place] [address]/ Gavino [facility] [place] [address]/oug [facility] [place] [address]/oug [facility] [place] [address]/05/2024Doug [facility] [place] [address]/04/2024Doug [facility] [place] [address]/04/2024 Gavino [facility] [place] [address]/Doug [facility] [place] [address]/oug HoyShingles B02.9B[facility] [place] [address]/oug HoyHemorrhoid K64.9 ; Sleep apnea G47.30 ; Fatty liver K76.0 ; Mixed hyperlipidemia E78.2 [address] Borderline [address]73.09[facility] [place] [address]/12/2024Doug HoyHypothyroidism E03.9 ; Fatty liver K76.0 ; Borderline diabetes R73.09 and Chronic cough R05.3B[facility] [place] [address]/Doug HoySleep apnea G47.30 ; Fatty liver K76.0 ; Mixed hyperlipidemia E78.2 ; Hypothyroidism E03.9 ; Knee osteoarthritis M17.9 ; Depression F32.A and Altered mental state R41.82 Assessments Encounter Date Diagnosis (ICD Code) Assessment Notes Treatment Notes Treatment Clinical Notes Section Notes 03/02/2024 Hemorrhoid (ICD-10 - K64.9) 03/02/2024Sleep apnea (ICD-10 - G47.30)03/25/2024Shingles (ICD-10 - B02.9) 09/06/2024Hypothyroidism (ICD-10 - E03.9)09/06/2024Fatty liver (ICD-10 - K76.0) 12/20/2024Sleep apnea (ICD-10 - G47.30)12/20/2024Fatty liver (ICD-10 - K76.0) 12/20/2024Mixed hyperlipidemia (ICD-10 - E78.2)12/20/2024Hypothyroidism (ICD-10 - E03.9)12/20/2024Knee osteoarthritis (ICD-10 - M17.9)12/20/2024Depression (ICD- 10 - F32.A)12/20/2024Hypothyroidism (ICD-10 - E03.9)12/30/2024Memory loss (ICD- 10 - R41.3)5Borderline diabetes (ICD-10 - R73.09)03/02/2024Fatty liver (ICD-10 - K76.0)03/02/2024Mixed hyperlipidemia (ICD-10 - E78.2)09/06/2024hronic cough (ICD-10 - R05.3)4Borderline diabetes (ICD-10 - R73.09)12/20/2024 Altered mental state (ICD-10 - R41.82)Intermittant workd finding issues - poor short term memormy - needs MRI brain if labs ok Plan Of Treatment Pending Test Test Name Order Date CMP (COMPLETE METABOLIC PANEL) 3 CMP (COMPLETE METABOLIC PANEL) 4 CMP (COMPLETE METABOLIC PANEL) 4 CULTURE, STOOL 07/09/2023 HEMOGLOBIN A1C (GLYCO) 07/09/2023 HEMOGLOBIN A1C (GLYCO) 10/13/2022 HEMOGLOBIN A1C (GLYCO) 12/20/2024 IRON, TOTAL 10/13/2022 IRON, TOTAL 12/20/2024 LIPID PANEL (CHOL/TRIG/HDL/LDL) 12/21/19 25 LIPID PANEL (CHOL/TRIG/HDL/LDL) 10/14/19 LIPID PANEL (CHOL/TRIG/HDL/LDL) 07/09/19 24 CBC WITH DIFF 07/09/2023 CBC WITH DIFF 10/13/2022 CBC WITH DIFF 12/04/2023 VITAMIN D, 25 LEVEL (TOTAL) 12/04/2023 VITAMIN D, 25 LEVEL (TOTAL) 10/13/2022 XR Chest PA and Lateral (Routine CXR) * 09/06/2024 RHEUMATOID PANEL 12/04/2023 ACUTE HEPATITIS PANEL 07/12/2023 Insulin Level 12/20/2024 Insulin Level 10/13/2022 COMPREHENSIVE METABOLIC PROFILE WITH GFR 07/16/2023 C DIFF TOX PCR STOOL 07/09/2023 MRI Brain w/o Contrast 12/30/2024 STOOL OCCULT BLOOD 10/13/2022 C. DIFF PCR 10/13/2022 GI PANEL (PCR) 10/13/2022 SED RATE WESTERGREN 12/04/2023 STOOL CULTURE 10/13/2022 THYROID PROFILE WITH TSH 07/12/2023 CT ABD and PELV W CON 07/14/2023 US ABD 07/09/2023 THYROID PANEL (T4/TSH/FREE T3) 4 THYROID PANEL (T4/TSH/FREE T3) 5 THYROID PANEL (T4/TSH/FREE T3) 4 THYROID PANEL (T4/TSH/FREE T3) 3 THYROID PANEL (T4/TSH/FREE T3) 5 CMP (COMP MET [place]) w/eGFR CKD-EPI 2024 CBC WITH DIFF 12/20/2024 Insurance Providers Payer Name Payer Address Payer Phone Subscriber Number Group Number Insured Name Patient Relationship to Insured Coverage Start Date Coverage End Date [employer] [address] [place] [phone] [id number] Tonio Burrell - patient is the [id number] 2023 Medications Administered Medication Instructions Date of Administration Dosage Notes Derrick-40 20 mg Medical (General) History Medical History History ICD Code Arthralgia M25.50 Anxiety F41.9 Depression F32.A Degenerative disc disease, lumbar 722.52 Diverticulitis K57.92 Fibrocystic breast disease N60.19 Mixed hyperlipidemia E78.2 Hypothyroidism E03.9 Knee osteoarthritis M17.9 Spondylolisthesis M43.10 Sleep apnea G47.30 Surgical History Surgery Date(Month/Year) EGD/Colonoscopy- Dr. Worthington 03/17/22 Total Knee Arthroplasty- left 02/10/22 Total Right Hip Arthroplasty 09/02/21 Total Knee Arthroplasty- Right- Dr. Charles rs 06/10/16 Multiple foot surgeries both feet Partial Lami [id number] History Reason Date(Month/Year) see above
--- OUTSIDE RECORDS SUMMARY | 2025-01-20 09:30 | XMS_ITS | Clinical Summary ---
Author Organization [facility] Address [address] [place] [address] Care Team Providers Care Manager Package Name Role Phone Unavailable Primary Care Provider Unavailabl e Social History Tobacco UseTypesPacks/DayYears UsedDateSmoking Tobacco: Never Assessed CommentsUnknownSex and Gender InformationValueDate RecordedSex Assigned at Not on fileLegal BdnOdriob30/29/2022 9:46 PM EDTGender IdentityNot on fileSexual OrientationNot on file Plan of Treatment Not on file
--- OUTSIDE RECORDS SUMMARY | 2025-01-20 09:31 | XMS_ITS | CCD ---
Author Organization [facility] Care Team Providers Care Test Conductor Name Role Phone Lucretia Lee Unavailable Unavailable Unavailable PIERO, DR BOYKIN Admitting Unavailable PIERO, DR BOYKIN Attending Unavailable PIERO, DR BOYKIN Primary Care Unavailable PIERO, DR BOYKIN Consulting Unavailable WEST, DR DANE Shea Consulting Unavailable PIERO, DR BOYKIN Admitting Unavailable PIERO, DR BOYKIN Attending Unavailable PIERO, DR BOYKIN Primary Care Unavailable PIERO, DR BOYKIN Consulting Unavailable Rin Samuelorah Unavailable Lucretia Lee MD Primary Care Provider [phone] Lucretia eLe Attending Unavailable Lucretia Lee Referring Unavailable Lucretia Lee Admitting Unavailable Yessica Hoffman Admitting Unavailable Yessica Hoffman Attending Unavailable Lucretia Lee MD Primary Care Provider [phone] Yessica Hoffman Attending Unavailable Yessica Hoffman Referring Unavailable Lucretia Lee Consulting Unavailable Yessica Hoffman Admitting Unavailable MD Lucretia Lee Consulting Unavailable Lucretia Lee Admitting Unavailable Lucretia Lee Attending Unavailable REDD SANDOVAL Attending Unavailable ZOË FU Referring Unavailable ZOË FU Referring Unavailable ZOË FU Attending Unavailable CINDY VALADEZ Referring Unavailable CINDY VALADEZ Attending Unavailable REDD SANDOVAL Attending Unavailable REDD SANDOVAL Attending Unavailable REDD SANDOVAL Attending Unavailable REDD SANDOVAL Attending Unavailable SILVIA, CINDY Win Referring Unavailable CINDY VALADEZ Attending Unavailable CINDY VALADEZ Referring Unavailable KRISTAL MILTON Attending Unavailable Medications Current Medications MedicationDrug Class(es)DatesSig (Normalized)Sig (Original)celecoxib 200 mg oral capsule (20 sources)Nonsteroidal Anti-inflammatory DrugStart: 48-33-9914ruvmwsdkv (CeleBREX) 200 MG capsule 08/18/2022 Activecitalopram 10 mg oral tablet (20 sources)Serotonin Reuptake Inhibitortake 1 tablet by mouth once daily citalopram (CeleXA) 10 MG tablet Take 10 mg by mouth Daily Activegabapentin 300 mg oral capsule (3 sources)Anti-epileptic AgentStart: 49-93-9271airbdatawm (Neurontin) 300 MG capsule Indications: Left cervical radiculopathy Take 1 capsule (300 mg) by mouth as needed at bedtime (nerve pain) 30 capsule 08/17/2024 Active levothyroxine sodium 0.112 mg oral tablet (20 sources)l-ThyroxineStart: 85-81-3873Gvralhanr 112 MCG tablet 06/09/2022 ActiveStart: 96-80-8254xfqa 1 tablet by mouth once dailySynthroid 112 MCG Oral Tablet TAKE 1 TABLET DAILY. Quantity: 0 Refills: 0 Ordered: 14-Jun-2021 DO Start : 14-Jun-2021 Activetake 1 capsule by mouth every twenty-four hoursLevothyroxine Sodium 112 MCG 1 capsule on an empty stomach in the morning Orally Once a day for 30 day(s) *please review for potential _update for e-prescription and drug interaction check* Activeliothyronine sodium 0.005 mg oral tablet (9 sources)l-TriiodothyronineStart: 27-03-5282Lgcqntw 5 MCG tablet 08/28/2023 ActiveMultivitamin preparation (1 source)Multivitamin *please review for potential _update for e-prescription and drug interaction check* Activepregabalin 100 mg oral capsule (2 sources) End: 17-46-8579cbpg 1 capsule by mouth twice dailypregabalin (Lyrica) 100 MG capsule (Schedule V Drug) TAKE 1 CAPSULE BY MOUTH TWICE A DAY Oral for 30 11/24/2023 DiscontinuedVitamin D-Vitamin K (DosoKap) 137.5-200 MCG tablet (9 sources)Start: 78-14-7269meij 137.5-200 ug by mouth once dailyVitamin D- Vitamin K (DosoKap) 137.5-200 MCG tablet Take 1 tablet by mouth Daily 06/13/2024 Active Completed/Discontinued Medications MedicationDrug Class(es)DatesSig (Normalized)Sig (Original)Acetaminophen / oxyCODONE (1 source)Opioid AgonistPercocet *please review for potential _update for e- prescription and drug interaction check* Not-Takingascorbic acid 500 mg oral capsule (1 source)Vitamin Ctake 1 capsule by mouth once dailyVitamin C 500 MG Oral Capsule TAKE 1 CAPSULE Daily Quantity: 0 Refills: 0 Ordered: 11-Jul-2021 DO Ac tiveaspirin 325 mg delayed release oral tablet (1 source)Platelet Aggregation Inhibitor, Nonsteroidal Anti-inflammatory Drug take 1 tablet by mouth every twelve hoursAspirin 325 MG 1 tablet Orally Twice a day Not-TakingCalcium (1 source)Phosphate Binder, CalciumCalcium *please review for potential _update for e-prescription and drug interaction check* Not-Takingcephalexin 500 mg oral tablet (2 sources)Cephalosporin Antibacterialtake 2 capsules by mouth every hourKeflex 500 MG 2 capsule Orally 2 capsules evening prior to appt; 2 capsules 1hr prior to appt for 1days Not-TakingCo Q-10 (1 source)Co Q-10 *please review for potential _update for e-prescription and drug interaction check* Not-TakingdiazePAM 5 mg oral tablet (5 sources)BenzodiazepineStart: 08-03-2024 End: 05-24-9791bzpelENG (Valium) 5 MG tablet Indications: Claustrophobia (CMS/HCC) 1 tab PO two hours before procedure may repeat X1 if need 30 mins before MRI for claustrophobia, No Driving for 12 hours after lastDose. Must be taken to appt by family member 2 tablet 08/03/2024 08/17/2024 Discontinued (Therapy completed)ferrous sulfate 325 mg oral tablet (19 sources) End: 26-55-9641gniepem sulfate 325 (65 Fe) MG tablet every 12 (twelve) hours. 07/14/2024 Discontinued (Therapy completed)take 1 tablet by mouth every twelve hoursIron 325 (65 Fe) mg 1 tablet Orally bid for 30 day(s) Not-TakingFish Oils (1 source)[facility] Fish Oil 1200 MG Oral *please review for potential _update for e- prescription and drug interaction check* Not-Takinglisinopril 10 mg oral tablet (20 sources)Angiotensin Converting Enzyme InhibitorStart: 11-07-6707xyrz 1 tablet by mouth once dailyLisinopril 10 MG Oral Tablet TAKE 1 TABLET DAILY. Quantity: 0 Refills: 0 Ordered: 14-Jun-2021 DO Start : 14-Jun-2021 Active Magnesium (20 sources) End: 28-33-9964lwwfjsytv 250 MG tablet 1 capsule with a meal Orally 07/14/2024 Discontinued (Therapy completed)magnesium 250 MG tablet 1 capsule with a meal Orally ActiveMagnesium 250 MG 1 capsule with a meal Orally Not-Takingtake 1 tablet by mouth once dailyMagnesium 500 MG Oral Tablet Take 1 tablet daily Quantity: 0 Refills: 0 Ordered: 11-Jul-2021 DO Activemetoprolol tartrate 50 mg oral tablet (20 sources)beta-Adrenergic BlockerStart: 45-54-3315fiuz 1 tablet by mouth once dailyMetoprolol Tartrate 50 MG Oral Tablet TAKE 1 TABLET EVERY 12 HOURS DAILY. Quantity: 0 Refills: 0 Ordered: 27-Jun-2021 DO Start : 27-Jun-2021 Active metoprolol tartrate (Lopressor) 50 MG tablet every 12 (twelve) hours ActiveMulti Vitamin Oral Tablet (1 source)take 1 tablet by mouth once dailyMulti Vitamin Oral Tablet TAKE 1 TABLET DAILY. Quantity: 0 Refills: 0 Ordered: 11-Jul-2021 DO Activeomeprazole 10 mg oral tablet (1 source)Proton Pump InhibitorOmeprazole 10 MG Oral *please review for potential _update for e-prescription and drug interaction check* Not-Taking pantoprazole 40 mg delayed release oral tablet (20 sources)Proton Pump InhibitorStart: 29-98-2860awks 1 tablet by mouth once dailyPantoprazole Sodium 40 MG Oral Tablet Delayed Release TAKE 1 TABLET DAILY. Quantity: 0 Refills: 0 Ordered: 14-Jun-2021 DO Start : 14-Jun-2021 Active predniSONE 10 mg oral tablet (7 sources)Start: 07-14-2024 End: 72-11-2699ltdk 5 tablets by mouth once daily, then take 4 tablets by mouth once daily, then take 3 tablets bymouth once daily, then take 2 tablets by mouth once daily, then take 1 tablet by mouth once dailypredniSONE (Deltasone) 10 MG tablet Indications: Left cervical radiculopathy Take 5 tabs p.o. dailyx3 days Take 4 tabs p.o. daily x3 days Take 3 tabs p.o. daily x3 days Take 2 tabs p.o. daily x3 days Take 1 tab p.o. daily x3 days 45 tablet 07/14/2024 08/17/2024 Discontinued (Therapy completed)rosuvastatin calcium 20 mg oral tablet (20 sources)HMG-CoA Reductase InhibitorStart: 81-32-8551ukmx 1 tablet by mouth once dailyRosuvastatin Calcium 20 MG Oral Tablet TAKE 1 TABLET DAILY. Quantity: 0 Refills: 0 Ordered: 14-Jun-2021 DO Start : 14-Jun-2021 Active Problems Active Problems Problem ClassificationProblemDateDocumented DateEpisodic/ChronicAnxiety disorders (2 sources)Claustrophobia; Translations: [Claustrophobia]99-24-9808Whtclme Cataract (20 sources)Bilateral age-related nuclear cataracts; Translations: [Age-related nuclear cataract, bilateral]Onset: 851081-53-9154SexqopcLgtbunndf of lipid metabolism (2 sources)Hyperlipidemia; Translations: [Other and unspecified hyperlipidemia] Onset: 99-90-2898ZlvvxizFfwlkmeoifmp; infection of eye (except that caused by tuberculosis or sexually transmitteddisease) (20 sources)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; Translations: [Unspecified blepharitis right eye, upper and lower eyelids]Onset: 367354-68-3894YmwtgkguQetpvvlsc of unspecified nature or uncertain behavior (2 sources)Neoplasm of uncertain behavior of skin; Translations: [Neoplasm of uncertain behavior of skin]32-39-2332OjnfzacpGqkmptziazrmtr (2 sources)Osteoarthritis of joint of right shoulder region; Translations: [Primary osteoarthritis, right shoulder]28-02-6712JtmqlixRthwk acquired deformities (1 source)Lumbar spondylolisthesis; Translations: [Spondylolisthesis, lumbar region]EpisodicOther bone disease and musculoskeletal deformities (2 sources)Exostosis of left foot; Translations: [Other specified disorders of bone, ankle and foot]63-58-6498RaiqrdsgLhpkj connective tissue disease (10 sources)Pain in left foot; Translations: [Pain in left foot]02-04-2024 EpisodicOther connective tissue disease (8 sources)Capsulitis of metatarsophalangeal joint of left foot; Translations: [Other enthesopathy of left foot and ankle]08-57-3303PtcroggjJjkuw eye disorders (20 sources)Dry eyes; Translations: [Dry eye syndrome of bilateral lacrimal glands]Onset: 224243-02-5793HkqrivzpMfhyk non-traumatic joint disorders (2 sources)Bilateral chronic pain of upper limbs; Translations: [Pain in right shoulder]51-35-6639JcrnqrarMejtc nutritional; endocrine; and metabolic disorders (1 source)Obesity; Translations: [Obesity, unspecified]ChronicRetinal detachments; defects; vascular occlusion; and retinopathy (20 sources)Epiretinal membrane of left eye; Translations: [Puckering of macula, left eye]Onset: 280234-48-7623TlnhgmqKncorkkfjru; intervertebral disc disorders; other back problems (5 sources)Degeneration of lumbar intervertebral disc; Translations: [Other intervertebral disc degeneration, lumbar region]10-93-5815MbjfzliBmzoyzcynjo; intervertebral disc disorders; other back problems (6 sources)Spinal stenosis, lumbar region with neurogenic claudication; Translations: [Left cervical root neuropathy]EpisodicThyroid disorders (5 sources)Hypothyroidism; Translations: [Unspecified acquired hypothyroidism] Onset: 70-32-3332JxrodvwQveit infection (10 sources)Verruca plantaris; Translations: [Plantar wart]30-78-8698Duxxeypn Past or Other Problems Problem ClassificationProblemDateDocumented DateEpisodic/ChronicCardiac dysrhythmias (5 sources)Palpitations; Translations: [Palpitations]Onset: 66-83-6082Szciecok Nonspecific chest pain (1 source)Chest pain, unspecified; Translations: [CHEST PAIN UNSPECIFIED]Onset: 95-03-6658WjvoqqghTobpqodm codes; unclassified (1 source)History of chest pain; Translations: [Personal history of other specified diseases] Resolved: 51-51-3317FrkkdqebVyascrvbsayi (1 source)Never smoked tobacco; Translations: [Never a smoker] Results Test NameValueInterpretationReference RangeFacilityOptical coherence tomography study reporton [id number] HealthcareNONC HealthcareRadiology Study observation (narrative)[facility]OM[facility] HealthcareXR Chest 2 Viewson 31-63-9726OS Chest 2 ViewsExam Date/Time: 09/09/2024 11:39 EDT Reason for Exam: other Report IMPRESSION: No acute radiographic abnormality. EXAMINATION: XR Chest 2 Views Clinical History: Intermittent cough. Shortness of breath. Chest pain. Comparison: 08/12/2021. RESULT: No consolidation. No pleural effusion. No pneumothorax. Normal cardiomediastinal silhouette. No acute osseous findings. Degenerative changes. Ordering Provider: Lucretia Lee FINAL REPORT Dictated: 09/09/2024 4:01 pm Dale Yu MD Signed (Electronic Signature): 09/09/2024 4:01 pm Signed by: Dale Yu MD Transcribed by: TEQUILA Technologist: [facility] HospitalMR CERVICAL SPINE WO CONTRASTon 70-99-1657NO CERVICAL SPINE WO CONTRAST EXAMINATION/TECHNIQUE: MR CERVICAL SPINE WO CONTRAST HISTORY: Cervical radiculopathy. No known injury. Symptoms for 3 months. Left radiculopathy. COMPARISON: Radiographs 08/03/2024. RESULT: CERVICAL: Counting reference: Craniocervical junction. Alignment: Alignment is anatomic. Bone marrow signal/fracture: No evidence for acute or chronic fracture. No pathologic marrow infiltration. Multiple small perineural cysts, especially on the left at C6-C7, on the right at C7-T1, andbilaterally at T1-T2. Craniocervical junction: Degenerative changes C1-C2, [...] cervical spine as discussed. ELECTRONICALLY SIGNED BY: Tamiko Arias AvailableComment on above: Order Comment: Pins in left great toe Right total hip arthroplasty B/L total knee arthroplasty Back surgery L5 S1 2005XR Cervical spine 4 or 5 Viewson 02-93-6863Bensxws Result: AP lateral and obliques of the cervical spine taken in the office today shows extensive degenerative disc disease multiple levels with facet hypertrophy and neural foraminal encroachment in the C4-5, C5-6 region and degenerative disc starting in the C3 through the C7 no obvious fracture bony tumor seen she does have some calcific findings associated with the posterior trachea and thyroid region.[facility] CenterRadiology Study observation (narrative)[facility] Bone Density DEXAon [id number] Bone Density DEXAExam Date/Time: 05/25/2024 09:42 EST Reason for Exam: [...] Dale Yu MD Transcribed by: TEQUILA Technologist: DEBBYSumma Health Wadsworth - Rittman Medical CenterMA Mamm Screen w/CAD if perf and 3D Bilon 64-67-5842EN Mamm Screen w/CAD if perf and 3D BilExam Date/Time: 05/25/2024 08:43 EST Reason for Exam: [...] IS VERY IMPORTANT TO YOUR HEALTH. THE [employer]IET[employer] GUIDELINES RECOMMEND THAT WOMEN 40 [...] Dale Yu MD Transcribed by: TEQUILA Technologist: Eliceo Assessment: BI-RADS Category 1-Negative Recommendation: Normal interval follow-upNoWilson Memorial Hospital 392054xe 77-70-9301Nkznwmrb report Cyto stain Doc (Cvx/Vag)NoteInvalid Interpretation [facility] EastComment on above:Result Comment: TESTS RESULT FLAG UNITS REF RANGE LAB Clinician Provided Cytology Information Source.............Endocervix No. of containers..01 ThinPrep Vial DIAGNOSIS: 01 NEGATIVE FOR INTRAEPITHELIAL LESION OR MALIGNANCY. CELLULAR CHANGES ASSOCIATED WITH ATROPHY ARE PRESENT. Specimen adequacy: 01 Satisfactory for evaluation. Endocervical component may not be distinguished in cases of atrophy. Performed by: Magnus George Customer Experience Retail Clerk (ASCP) . 01 Note: Note 01 [...] <-Panic Low,>-Panic High,A-Abnormal,AA-Critical Abnormal Performed at: [address] [id number] Bethany Pham MD, Ccnielcym By: #### [id number] #### [facility] [address] [place], [place] [address]DSR 16+18+31+33+35+39+45+51+52+56+58+59+66+68 DNA Probe+sig amp Ql (Cvx)NegativeInvalid Interpretation CodeNegativeMemorial Health System Comment on above:Result Comment: This nucleic acid amplification test detects fourteen high-risk HPV types (16,18,31,33,35,39,45,51,52,56,58,59,66,68) without differentiation. Performed at: [facility] [id number] MD Ankit Sims Performed at: =[address] [facility] [id number] MD Ankit SimsPerformed By: #### [id number] #### [facility] [address] [place], [place] [address]PFB 00-18-8720Snzafbskdv TechniqueBRUSH-SPATULANormal Memorial Health SystemComment on above:Performed By: #### [id number] #### [facility] [address] [place], [place] [address]Vxvqwehuyodtb Body SiteENDOCERVIXNormalFisher [facility] HospitalComment on above:Performed By: #### [id number] #### [facility] [address] [place], [place] [address]Czewpuy coherence tomography study reporton 50-33-7267YEAYHedrick Medical Center HealthcareRadiology Study observation (narrative)[facility] CT Abdomen/Pelvis w/ Contraston 18-46-0410OB Abdomen/Pelvis w/ ContrastExam Date/Time: 07/22/2023 14:12 EDT Reason for Exam: [...] Lymph nodes: No abdominal or pelvic lymphadenopathy. Mesentery/Peritoneum/Retroperitoneum: No ascites or mass. Vasculature: The celiac [...] tissues: Unremarkable. Lower thorax: Unremarkable. Ordering Provider: Lucertia Lee FINAL REPORT Dictated: 07/24/2023 2:39 pm Dale Yu MD Signed (Electronic Signature): 07/24/2023 2:39 pm Signed by: Dale Yu MD Transcribed by: TEQUILA Technologist: QUYEN Technical Comments GFR (mL/min/1/73m2) >60 Contrast: Isovue 300 Contrast amount in ml's: 100 Oral contrast amount in ml's: 900NoSamaritan North Health CenterConsent for Treatmenton 89-74-5478Jdjltpp for Treatment [id number]#1.00TIFMercy HospitalRAD - MISCon 06-69-3859OZA - MISC [id number]#1.00[facility] CenterInsurance Correspondenceon 09-98-3237Gsnfhuffo Correspondence [id number]#1.00TIFMercy HospitalPhysician Orderon 08-43-1061Gdbcxpmar Order [id number]#1.00TIFMercy HospitalFREE T3on 87-78-0936DBER T32.18 pg/mlLNormal2.18-3.98The [facility] Comment on above:Performed By: #### LIPID, TSH, FT3, T4 #### [facility] [address] [place] [address] Dr. Dorys SalgueroLIPID PROFILEon 13-44-9909MCFQ-HDL RATIO Doctors HospitalComment on above:Result Comment: 3.3 - 4.4 LOW RISK 4.4 - 7.1 AVERAGE RISK 7.1 - 11.0 MODERATE RISK >11.0 HIGH RISKPerformed By: #### LIPID, TSH, FT3, T4 #### [facility] [address] [place] [address] Dr. Dorys Francisesterol [Mass/Vol]152 mg/dLNormal<=200The [facility] Comment on above:Performed By: #### LIPID, TSH, FT3, T4 #### [facility] [address] [place] [address] Dr. Dorys Francisesterol in HDL [Mass/Vol]42 mg/wJLygkvz39-33Wbo [facility] HospitalComment on above:Performed By: #### LIPID, TSH, FT3, T4 #### [facility] [address] [place] [address] Dr. Dorys Francisesterol in LDL [Mass/Vol]72.8 mg/dLUK HealthcareComment on above:Performed By: #### LIPID, TSH, FT3, T4 #### [facility] [address] [place] [address] Dr. Dorys Santizo.total/Cholesterol in HDL [Mass ratio]3.6 {ratio} NormalScci Hospital LimaComment on above:Performed By: #### LIPID, TSH, FT3, T4 #### [facility] [address] [place] [address] Dr. Dorys Forrester NORMAL> or = 60 mg/dl - LOW CARDIOVASCULAR RISK <40 mg/dl - HIGH CARDIOVASCULAR RISKUK HealthcareComment on above:Performed By: #### LIPID, TSH, FT3, T4 #### [facility] [address] [place] [address] Dr. Dorys Jones CALC NORMALSEE BELOWUK HealthcareComment on above:Result Comment: <100 mg/dl OPTIMAL 100 - 129 mg/dl NEAR OR ABOVE OPTIMAL 130 - 159 mg/dl BORDERLINE HIGH 160 - 189 mg/dl HIGH >190 mg/dl VERY HIGH Performed By: #### LIPID, TSH, FT3, T4 #### [facility] [address] [address] [address] Dorys SalgueroTriglyceride [Mass/Vol]186 mg/dLCritically high<=150The [facility] Community HospitalComment on above:Performed By: #### LIPID, TSH, FT3, T4 #### [facility] [address] [place] [address] Dr. Dorys SalgueroVLDL CALC37.2 mg/dLNormalThe [facility] Community HospitalComment on above: Performed By: #### LIPID, TSH, FT3, T4 #### [facility] [address] [place] [address] Dr. Dorys Dorsey4on 92-55-2246L5 [Mass/Vol]7.90 ug/dLNormal4.80-13.90The [facility] Community HospitalComment on above:Performed By: #### LIPID, TSH, FT3, T4 #### [facility] [address] [place] [address] Dr. Dorys Vargas 68-55-2774HNF3.689 uIU/mLNormal0.358-3.740The [facility] Community HospitalComment on above:Performed By: #### LIPID, TSH, FT3, T4 #### [facility] [address] [place] [address] Dr. Dorys Hua Visit (Cardiology)on 96-15-3442Ewwyqo-up visit Diagnoses/Problems Assessed Palpitations (785.1) (R00.2) Hyperlipidemia (272.4) (E78.5) Pre-operative cardiovascular examination (V72.81) (Z01.810) Class 1 obesity with body mass index (BMI) of 31.0 to 31.9 in adult (278.00,V85.31) (E66.9,Z68.31) Hypothyroidism (244.9) (E03.9) Never a smoker Orders Class 1 obesity with body mass index (BMI) of 31.0 to 31.9 in adult Healthy Weight Tips; Status:Complete - Retrospective Authorization; Done: 11Jul2021 Pre-operative cardiovascular examination IO EKG Electrocardiogram- 12 Lead; Status:Active - Perform Order,Retrospective Authorization; Requested for:58Min5122; SocHx: Never a smoker Tobacco Use Screening; Status:Complete; Done: [id number] Tobacco Use Screening; Status:Complete; Done: [id number] Patient Instructions By signing my name below, I, Shaneka Lopez RN,Scribe Please bring all medicines, vitamins, and [...] PIERO CARRILLO STRESS DR FU POC SURGERY NOTSCHEDULED YET. Patient is a 60-year-old female seen [...] any major adverse cardiac events with revised Prabhaakr criteria of 0.9% or very low risk. I do not believe she warrants any further imaging or testing at this time as she is so asymptomaticand exercises greater than or equal to 7 METs with walking on a daily basis. We did reimbursement counselor her on dietary discretion, weight loss [...] (V49.89) (Z78.9) 1 G (more content not included)...NormalUH TouchworksTobacco Screening.on 11-80-7842Ryhpj depression screening assessmentBradley Hospital Zeo DO Work Phone: Tobacco use status CPHSb) [facility] Tipp24 250 DO Work Phone: Adult depression screening assessmentNo-[facility] 250 DO Work Phone: Tobacco use status CPHSb) NoM-[facility] [place] 250 DO Work Phone: nm STRESS/REST MULTIon 13-60-0849VX STRESS/REST MULTI Patient: NEISHA QUINTANA Exam Date: 07/08/2021 : 1960 Gender:F Ordering : DR LUCRETIA LEE . Admission #: [id number] Family : Order #: [id number] CLICK HERE TO VIEW EXAM RADIOLOGY REPORT [...] by: Dane Flores MD on 07/08/2021 at 12:03[facility] Vital Signs Date TimeVital SignValuePerforming VbtmlwkgeIqtlfhnl32-35-4329 13:49-0400Body uhiohc358.1 [facility] PA Work Phone: [facility] HospitalNaozlyfbgx32-18-3001 13:49-0400Body mass index (BMI) [Ratio]32.28 kg/m2[facility] Work Phone: [facility] HospitalUyuglxpyiv41-85-0825 13:49-0400Body jwanvs65 kg [facility] PA Work Phone: [phone] HospitalDydjsfmfhc90-17-4643 08:01-0400Body oanhni763.1 [facility] PA Work Phone: [phone] HospitalOzzysgfmwh66-44-1599 08:01-0400Body mass index (BMI) [Ratio]32.28 kg/m2[facility] PA Work Phone: [facility] HospitalMwirvnyodj49-14-7957 08:01-0400Body kg [facility] PA Work Phone: [facility] HospitalHtkgmjxqzo19-13-0789 08:21-0400Body gepjhu901.1 cmZoë Fu DO Work Phone: [facility] HospitalRcbdcmyfbf14-44-5165 08:21-0400Body mass index (BMI) [Ratio]32.28 kg/i3Tengvlo Fu DO Work Phone: [facility] HospitalIagrllqipm39-55-6247 08:21-0400Body unnvuz43 kg Zoë Fu DO Work Phone: [facility] HospitalHxzhwnmcbl69-68-8686 13:13-0500Body .1 cmRedd Sandoval DPM Work Phone: [facility] HospitalEycatkrxmr13-22-7057 13:13-0500Body mass index (BMI) [Ratio]32.95 kg/j4LyvaorljRedd Sandoval DPM Work Phone: [facility] HospitalKlxszrhgru64-13-1573 13:13-0500Body weqzko93.81 kgRedd Brown DPM Work Phone: [facility] HospitalJssxkhffrw42-01-4593 08:53-0500Body sayixf131.1 cmRedd Sandoval DPM Work Phone: [phone] [place], [place] [address]Oagnnspgxu73-09-1434 08:53-0500Body mass index (BMI) [Ratio]32.95 kg/p5Pmatvjeo Brown DPM Work Phone: [facility] HospitalWjmcsswcoy28-05-9432 08:53-0500Body xdlrei37.81 kgNicholas Brown DPM Work Phone: [facility] HospitalWdrgudbxwn38-24-0785 08:53-0500Respiratory rate18 /minNicholas Brown DPM Work Phone: [phone] [place], [place] [address]Zxfzuvbkaj06-36-8900 09:19-0500Body eydxki014.1 cmNicholas Brown DPM Work Phone: [phone] [place], [place] [address]Pvjmubqbih77-31-1527 09:19-0500Body mass index (BMI) [Ratio]32.95 kg/o8Efacorcw Brown DPM Work Phone: [phone] [place], [place] [address]Oykacafuit99-94-2676 09:19-0500Body xofmpl48.81 kgNicholas Brown DPM Work Phone: [phone] [place], [place] [address]Vzwehbptaj24-48-9532 09:19-0500Respiratory rate16 /minNicholas Brown DPM Work Phone: [phone] [place], [place] [address]Cimkutezix08-79-3854 10:37-0500Body .1 cmNicholas Brown DPM Work Phone: [facility] HospitalIlnlakgfmr54-17-2756 10:37-0500Body mass index (BMI) [Ratio]32.95 kg/d2Impijopt Brown DPM Work Phone: [phone] [place], [place] [address]Selefcoqnd56-38-2245 10:37-0500Body bdobfb20.81 kgNicholas Brown DPM Work Phone: [phone] [place], [place] [address]Avatlgrezz07-40-9055 10:37-0500Respiratory rate16 /minNicholas Brown DPM Work Phone: [phone] [place], [place] [address]Wyjdylkomp05-12-7009 08:51-0500Body ocaisn643.1 cmNicholas Brown DPM Work Phone: [phone] [place], [place] [address]Wglsbyhomo53-45-1506 08:51-0500Body mass index (BMI) [Ratio]32.95 kg/o9ZlyhmhfeRedd Sandoval DPM Work Phone: [facility] Nalzzvkyyq29-04-4441 08:51-0500Body esfbop67.81 kgRedd Sandoval DPM Work Phone: noLee's Summit HospitalKevcusubka83-51-3235 08:51-0500Diastolic blood oxbvcerb11 mm[Hg]Redd Sandoval DPM Work Phone: [facility] HospitalAsyuubyhvd21-21-1221 08:51-0500Heart rate83 /min Redd Sandoval DPM Work Phone: noLee's Summit HospitalDfhcdrxdae38-14-2318 08:51-0500Systolic blood azujbyva301 mm[Hg]Rded Sandoval DPM Work Phone: noLee's Summit HospitalZsnzagwbkn34-50-5135 08:00-0400Body edxglq350.1 cmDeborah Blades Other Perk Other 09-27-2023 08:00-0400Body mass index (BMI) [Ratio] 32.45 kg/e2Ijrcqdm Blades Other Per[employer] Other 09-27-2023 08:00-0400Body tuvgzp00.45 kgDeborah Blades Other Perk Other 09-27-2023 08:00-0400Diastolic blood sxpbitap58 mm[Hg] Junie Blades Other Perk Other 09-27-2023 08:00-0400Systolic blood tsvujppd231 mm[Hg] Junie Blades Other Perk Other 04-14-2022 11:08-0400Body itizms827.1 cmLucretia Lee Work Phone: [phone]-Vstcq [facility] 250 DO Work Phone: [phone] 11:08-0400Body mass index (BMI) [Ratio] 31.38 kg/f5Cybpnqk M Hoy Work Phone: [phone]-Ezzkg [facility] 250 DO Work Phone: [phone] 11:08-0400Body surface area Derived from formula1.93 z1Fbqawar M Hoy Work Phone: [phone]-Uveyl [facility] 250 DO Work Phone: [phone] 11:08-0400Body .55 kgDouglas M Hoy Work Phone: [phone]-Jotpk [facility] 250 DO Work Phone: [phone] 11:08-0400Diastolic blood gdybrqvp38 mm[Hg] Lucretia M Hoy Work Phone: [phone]-Gsnog [facility] 250 DO Work Phone: [phone] 11:08-0400Heart rate57 /minDouglas M Hoy Work Phone: [phone]-Zidos [facility] 250 DO Work Phone: [phone] 11:08-0400Systolic blood cjekvnkq171 mm[Hg] Lucretia M Hoy Work Phone: [phone]-Drmnj [facility] 250 DO Work Phone: [phone] 11:01-0400Body ywngnt204.1 cmDouglas M Hoy Work Phone: [phone]-Tqhrj [facility] 250 DO Work Phone: [phone] 11:01-0400Body mass index (BMI) [Ratio] 31.38 kg/z8Xxjzfdo M Hoy Work Phone: [phone]-Bofbd [facility] 250 DO Work Phone: [phone] 11:01-0400Body surface area Derived from formula1.93 j4Tjhxjys M Hoy Work Phone: [phone]-Lawwc [facility] 250 DO Work Phone: [phone] 394-504504-14-2022 11:01-0400Body nfyzpc64.55 kgDougpasquale Limon Hoy Work Phone: [phone]-Rksub [facility] 250 DO Work Phone: [phone] 11:01-0400Diastolic blood dswemzyq45 mm[Hg] Lucretia Limon Hoy Work Phone: [phone]-Ptnuj [facility] 250 DO Work Phone: [phone] 11:01-0400Heart rate57 /minDouglas Ashly Hoy Work Phone: [phone]-Ayinq [facility] 250 DO Work Phone: [phone] 913-193104-14-2022 11:01-0400Systolic blood munurhqh849 mm[Hg] Lucretia Limon Hoy Work Phone: [phone]-Opdxm [facility] 250 DO Work Phone: Encounters Encounter DateEncounter TypeCare ProviderFacilityStart: 11-25-2024 End: 44-37-7366Yflqlinichelle Milton DO Work Phone: [facility] EyeStart: 11-25-2024 End: 31-86-8872Fsipkjjeffrey Milton DO Work Phone: noms [facility] EyeStart: 11-25-2024 End: 62-19-4761glgddlhnmxAZXNKOZG D ZAHLERNot AvailableStart: 09-09-2024 End: 61-52-8878msyfzbaonxCuzflie HoyFacility:FTMCStart: 08-17-2024 End: 15-25-0742Stgpchnichelle Valadez PA Work Phone: noms ORTHOStart: 08-17-2024 End: 92-74-0483Klvale flowsheetToshivani IGNACIO Work Phone: [facility]S ORTHOStart: 08-17-2024 End: 44-02-2868Llhxkoj encounter procedureToshivani IGNACIO Work Phone: [facility] NB ORTHOComment on above:Left cervical radiculopathy (Primary Dx); Herniated nucleus pulposus, C5-6 left; DDD (degenerative disc disease), cervicalStart: 08-17-2024 End: 04-79-5000ddwfifqianXBIO D HILLSNot AvailableStart: 08-16-2024 End: 63-15-3253Eaeavi-up encounterToshivani IGNACIO Work Phone: [facility] NB ORTHOStart: 08-05-2024 End: 99-65-0734yoxoqpswfuQPAD D HILLSNot AvailableStart: 08-03-2024 End: 32-25-9787Ssmjisi encounter procedureToshivani IGNACIO Work Phone: [phone] NB ORTHOComment on above:Cervical radiculopathy due to degenerative joint disease of spine (Primary Dx); Claustrophobia (CMS/HCC); Left cervical radiculopathyStart: 08-03-2024 End: 18-39-6129xirjyxuiobXVYD D SILVIANot AvailableStart: 07-14-2024 End: 44-44-3619Vrzllji encounter procedureMichael T Fu DO Work Phone: [facility] NB ORTHOComment on above:Chronic pain of both shoulders (Primary Dx); Left cervical radiculopathy; Primary osteoarthritis of right shoulderStart: 07-14-2024 End: 68-93-3066oxpchonyooQVBHEIN T POWERSNot AvailableStart: 05-25-2024 End: 07-88-9308nyzmgcxplgAhyaby J LampeFacility:FTMCStart: 04-19-2024 End: 65-17-4563Ihwpcr Areli Sandoval DPM Work Phone: [facility] [place] PODStart: 04-19-2024 End: 70-15-7129Dmkmsm flowsheetRedd Lima Brown DPM Work Phone: noms [place] PODStart: 04-19-2024 End: 29-89-4344Ysswehj encounter procedureRedd Sandoval DPM Work Phone: noms [place] PODComment on above:Verruca plantaris (Primary Dx); Foot pain, leftStart: 04-19-2024 End: 44-85-6219cvhcteiuocDNZZJQQS A BROWNNot AvailableStart: 04-05-2024 End: 00-55-5305Eelonp flowsheetNicholas Janie Sandoval DPM Work Phone: noms [place] PODStart: 04-05-2024 End: 06-88-2021Zlgonc flowsheetNicholrafaela Sandoval DPM Work Phone: noms [place] PODStart: 04-05-2024 End: 60-18-6225Ukimuy outpatient visit 15 minutesRedd Lima Jaime DPM Work Phone: noms [place] PODComment on above:Exostosis of left foot (Primary Dx); Verruca plantaris; Foot pain, left; Capsulitis of metatarsophalangeal (MTP) joint of left footStart: 04-05-2024 End: 65-35-5079juyxjbkflfWXHGHVPM A BROWNNot AvailableStart: 03-18-2024 End: 77-49-0021Khywvx flowsheetNickathryn Janie Sandoval DPM Work Phone: noms [place] PODStart: 03-18-2024 End: 16-18-3798Qecfor flowsheetNicholrafaela Sandoval DPM Work Phone: noms [place] PODStart: 03-18-2024 End: 91-30-6510Omkskby encounter procedureDanielitothaniarafaela Sandoval DPM Work Phone: noms [place] PODComment on above:Verruca plantaris (Primary Dx); Foot pain, left; Capsulitis of metatarsophalangeal (MTP) joint of left footStart: 03-18-2024 End: 36-35-5373plnpmxtfueYWRQRWYT A BROWNNot AvailableStart: 03-04-2024 End: 94-92-5413Dldfft flowsheetNickathryn Sandoval DPM Work Phone: noms [place] PODStart: 03-04-2024 End: 86-84-6812Qsizby flowsheetNicholrafaela Sandoval DPM Work Phone: noms [place] PODStart: 03-04-2024 End: 43-63-0881qdcvyjphfqTRYVROJC A BROWNNot AvailableStart: 03-04-2024 End: 77-22-3697Npunyra encounter procedureNickathryn Sandoval DPM Work Phone: noms [place] PODComment on above:Verruca plantaris (Primary Dx); Foot pain, left; Capsulitis of metatarsophalangeal (MTP) joint of left footStart: 02-18-2024 End: 53-93-7893jmbgawdlnlNirrwr J LampeFacility:FTMCStart: 02-04-2024 End: 23-26-9689Nfvftm camillaNicthaniarafaela Sandoval DPM Work Phone: noms PODIATRYStart: 02-04-2024 End: 65-67-3273Dyuako rubiheetNicholrafaela Sandoval DPM Work Phone: noms [place] PODIATRYStart: 02-04-2024 End: 74-59-8714ffeigwrhyaAQHOTRSB A BROWNNot AvailableStart: 02-04-2024 End: 45-38-0453Rbijha outpatient new 30 minutesNickathryn Sandoval DPM Work Phone: noms PODIATRYComment on above:Capsulitis of metatarsophalangeal (MTP) joint of left foot (Primary Dx); Neoplasm of uncertain behavior of skin; Verruca plantaris; Foot pain, leftStart: 07-22-2023 End: 31-65-1805vnjtdfypodJhdxbyx HoyFacility:FTMCStart: 12-24-2022 End: 93-60-4497ltnbdqzajjEpthmmf Blades Other [facility] [employer] Other start: 77-58-3188Phclse outpatient new 45 minutes Junie LizzieFPG [facility] NeurosurgeryStart: 03-18-2022 End: 41-25-0535onrmmjjydeXU LUCRETIA HOYFacility:R2Leoby: 83-14-4219Oufvgw consultation new/estab patient 60 minDouglas Ashly Hoy Work Phone: [phone]-Vvfuq [facility] 250 DO Work Phone: Start: 07-08-2021 End: 94-16-4197jjzblzbwttZT LUCRETIA HOYFacility:F6Wbkvfbk encounter status Lucretia M Hoy Work Phone: [phone]-Rhfxw [facility] 250 DO Work Phone: Procedures DateProcedureProcedure DetailPerforming ClinicianStart: 65-11-7008Uhchpaegffdh ophthalmic imaging retinaKristal Milton DO Work Phone: Start: 11-25-2024 End: 40-27-8160Waxwg medical xm&eval comprhnsv estab pt 1/>Epiretinal membrane (ERM) of left eyeJoraymondmanda Audelia Echeverriaraven DO Work Phone: comment on above:Age-related nuclear cataract of both eyes (Primary Dx); Epiretinal membrane (ERM) of left eye; Dry eyes; Blepharitis of upper and lower eyelids of both eyes, unspecified typeStart: 02-90-4195Misnu spine cervical 4 or 5 viewsTodd D Lowry PA Work Phone: Start: 36-52-2339Haeon shoulder complete minimum 2 viewsMichael T Fu DO Work Phone: Start: 25-73-8888Kipderqpystz ophthalmic imaging retinaPatriciaforeign Milton DO Work Phone: Start: 11-24-2023 End: 92-92-2112Egeta medical xm&eval comprhnsv estab pt 1/>Epiretinal membrane (ERM) of left eyeRinamanda Audelia Yoan DO Work Phone: comment on above:Age-related nuclear cataract of both eyes (Primary Dx); Epiretinal membrane (ERM) of left eye; Dry eyes; Blepharitis of upper and lower eyelids of both eyes, unspecified type Arthroplasty of kneeDouglas Ashly Lee Work Phone: LaparoscopyDouglas Ashly Homonico Work Phone: LaparotomyDouglas Ashly Homonico Work Phone: Operative procedure on footDouglas M Hoy Work Phone: Procedure on backDouglas M Homonico Work Phone: Plan of Treatment DateCare ActivityDetailAuthorStart: 85-71-2376Uvvejvtiq vaccinationNOMS HealthcareStart: 11-25-2024 End: 02-77-6056Xfxiyzt encounter procedureNOMS NB OPHTComment on above:Arrived Start: 08-17-2024 End: 77-38-7672Mnrschr encounter bbyohpmpk09/21/2025 1:45 PM EDT Office Visit [facility] [address] [place] [id number] Cindy Valadez, PA [address] [place] [address] ArrivedNOMS NB ORTHOComment on above:ArrivedStart: 08-03-2024 End: 64-98-1503Lzulkrd encounter ikcvudtoa96/07/2025 8:00 AM EDT Office Visit [facility] [address] [place] [address] Cindy Valadez, PA [address] [address] [facility] NB ORTHOStart: 04-19-2024 End: 98-38-3797Ocskupd encounter procedureNOMS SC PODComment on above:Verruca plantaris (Primary Dx); Foot pain, leftStart: 04-05-2024 End: 68-61-0393Sngjimh encounter dueatwtpb62/07/2025 9:00 AM EST Office Visit [facility] [address] [place] [address] Redd Sandoval DPM [address] [address] Verruca plantaris (Primary Dx); Foot pain, left; Capsulitis of metatarsophalangeal (MTP) joint of left footNOMS SC PODComment on above:Verruca plantaris (Primary Dx); Foot pain, left; Capsulitis of metatarsophalangeal (MTP) joint of left footStart: 03-18-2024 End: 30-99-5227Qgsbeyo encounter procedureNOMS SC PODComment on above:Verruca plantaris (Primary Dx); Foot pain, left; Capsulitis of metatarsophalangeal (MTP) joint of left footStart: 02-18-2024 End: 31-02-0938Fwkcoxv encounter elwtpeuhz93/21/2024 10:30 AM EST Office Visit [facility] [address] [address] Redd Sandoval DPM [address] [address] [facility] CI PODIATRYStart: 91-67-9058Acruzfcxl vaccination Influenza Vaccine (#1)[facility] HealthcareStart: 10-68-6634Lobbaulvtwwc Vaccine: 65+ Years (1 of 1 - PCV)Pneumococcal Vaccine: 65+ Years (1 of 1 - PCV)[facility] HealthcareStart: 27-49-6259Lxtzwzfnqprw Vaccine: 65+ Years (1 of 1 - PCV) Pneumococcal Vaccine: 65+ Years (1 of 1 - PCV)[facility] HealthcareStart: 1998 Screening for malignant neoplasm of breastMammogramNOMS HealthcareStart: 35-78-5115Ltnulflqm for malignant neoplasm of cervixNOMS HealthcareStart: 31-11-5621Zmodkfpyf for malignant neoplasm of cervixPap SmearNOMS Healthcare Start: 88-72-0935Rveapdwez for malignant neoplasm of colonNOMS HealthcareXR Shoulder - left 2 ViewsXR shoulder 2+ views left Imaging Routine Chronic pain of both shoulders 07/14/2024 7:48 AM EDTNONC HealthcareXR Shoulder - right 2 Views XR shoulder 2+ views right Imaging Routine Chronic pain of both shoulders 07/14/2024 7:48 AM EDTAL[facility]IEW [facility]ITAL Healthcare Work Phone: Immunizations Immunization DateImmunizationNotesCare VscusyjjKbevtprv50-21-2244Suuqotqlj, injectable, Madin Retsof Canine Kidney, preservative free, quadrivalentDouglas M Hoy Work Phone: [phone]-ZlugcDanielle [place]ille [address] DO Work Phone: [phone]mp virus vaccine, unspecified formulationKristal Rose Maryclifford DO Work Phone: [facility] HospitalQabslrajyp77-95-1810Kpvnbid COVID-19 Vaccine 100 MCG/0.5ML Intramuscular SuspensionDouglas M Hoy Work Phone: [phone]-XuukpGrand [facility]asca Clinic and [facility] 250 DO Work Phone: [phone] COVID-19 Vaccine 100 MCG/0.5ML Intramuscular SuspensionDouglas M Hoy Work Phone: [phone]-ZmphuDanielle Ville [address] DO Work Phone: [phone]l, injectable, Madin Colleen Canine Kidney, preservative free, quadrivalentDouglas M Hoy Work Phone: [phone]-CnmbfGrand Itasca Clinic and Hospital 250 DO Work Phone: [phone], injectable, quadrivalent, preservative freeDouglas M Hoy Work Phone: [phone]-BfimmGrand Itasca Clinic and Hospital 250 DO Work Phone: [phone] cgxkpvjbw-B6C2-20, preservative-free, injectableDouglas M Hoy Work Phone: [phone]-TsqetGrand Itasca Clinic and Hospital 250 DO Work Phone: Payers DatePayer CategoryPayerPolicy [id number] MEDICARE ADVANTAGE [id number] 2024MedicareAETNA MEDICARE ADVANTAGE AETNA MEDICARE REPLACEMENT [id number] 2023-Present [address] [place] [id number] Health [id number]9-2673Olalzdd Health [id number] 2.0.1.248392.3.579.2.593 [id number] 2.0.1.840405.3.579.2.[id number] 2.0.1.348924.3.57[id number] 2.0.1.039172.3.57[id number] 2.0.1.936365.3.579.2.38809-05-7155Xorkqqt18863739 2.0.1.741473.3.579.2.64186-51-0190Grxgxil56747726 2.16.840.1.274817.3.579.2.863606-26-2963Ljdorzk7278265 2.16.840.1.932595.3.579.2.807489-53-3242Vxpjfya7713925 2.16.840.1.285726.3.579.2.[id number] 2.16.840.1.042351.3.579.2.286643-41-1152Smjydch8758187 2.16.840.1.320396.3.579.2.[id number] 2.16.840.1.308637.3.579.2.324243-62-8735Gxphfuz7959948 2.16.840.1.612570.3.579.2.7[id number] 2.16.840.1.415477.3.579.2.606940-43-4150Fbxcnzu9560605 2.16.840.1.022032.3.579.2.6[id number] 2.16.840.1.550257.3.579.2.217243-86-7499Ctbgzwn4825612 2.840.1.458079.3.579.2.547288-85-0682Hgufvca1685759 2.16840.1.827423.3.579.2.242120-06-8530Iuvozbm2362145 2.840.1.829723.3.579.2.1259UnknownUNITED [facility] Social History DateTypeDetailFacilityStart: 11-24-2023 End: 36-86-0035Scjutvsr useCaffeine use-[facility] 250 DO Work Phone: Comment on above:1/2 CUP COFFEE DAILY 1 CAN DIET SODA DAILY;1 GLASS WINE AND 1 BEER;Start: 11-24-2023 End: 62-98-9491Wce Assigned At [facility] [employer] Other start: 09-04-2022 End: 56-58-7396Ebtpoir smoking status NHISNever smoked tobaccoALTA VIEW HOSPITAL Healthcare Start: 09-04-2022 End: 59-17-5125Sfywamc use and exposureSmokeless tobacco non-userNONC Healthcare Start: 11-24-2023 End: 07-05-8300Blglnsfre beverage intakeEx-drinker (finding)[facility] Start: 59-45-8665Fuafblj Commentcaffeine intake: 1-2 cups per day of coffee/ sodaNOMS HealthcareStart: 38-30-6344Yjo assigned at birthNot on [facility] HealthcareNEGATED: Highlighted rowStart: NINFHistory of tobacco usePassive smokerSaint Luke's Hospital Clinical Notes 12-24-2022 to 11-25-2024 Note Date & AqaaBmuaFohzkicg06-55-7038 NoteRight Eye Quality was good. Scan locations included subfoveal. Progression has been stable. Findings include normal observations. Left Eye Quality was good. Scan locations included subfoveal. Progression has been stable. Findings include abnormal foveal contour, epiretinal membrane. Notes Good scan with normal appearance [facility]-SullivanIhwkecmibi45-93-2199 History of Present illness Narrative* Kristal Milton, - 11/25/2024 8:30 AM EDT Images from the original note were not [...] to the patient. An epiretinal membrane (ERM) hasthe potential to influence quality of vision including [...] lid scrubs were recommended. documented in this encounterSaint Luke's HospitalWtedovvudd60-19-5735 History of Present illness Narrative* MATEUS Whyte - 08/17/2024 1:45 PM EDT Subjective Patient ID: Neisha Quintana is a 63 y.o. female. Chief Complaint: Follow-up of the Neck (MRI [facility] 08/05/24) Last Surgery: No surgery found Last Surgery Date: No surgery found HPI Neisha is still struggling with her left arm pain and neck discomfort follow-up for her MRI today which does demonstrate multiple levels affecting the left neural foramina with most prominence at C4-5extending down even to C7-T1. She is still [...] It appears to be more radiation into hercervical trapezial area. Mildly positive Spurling compression test. [...] at C6-C7, on the right at C7-T1, andbilaterally at T1-T2. Craniocervical junction: Degenerative changes C1-C2, [...] concerns in the meanwhile. documented in this encounterSaint Luke's HospitalMetyyedlbz16-02-9123 Instructions* Patient Instructions* MATEUS Whyte - 08/17/2024 1:45 PM EDT [...] concerns in the meanwhile. documented in this encounterSaint Luke's HospitalRmgxodwuci90-71-4905 History of Present illness Narrative* MATEUS Whyte - 08/03/2024 8:00 AM EDT Images from the original note were not [...] and radicular pain through the elbow and acrossthe forearm with certain positioning of her head [...] It appears to be more radiation into hercervical trapezial area. Mildly positive Spurling compression test. [...] intermittent Tylenol for discomfort. documented in this [facility]05-07-2025 Instructions* Patient Instructions* MATEUS Whyte - 08/03/2024 8:00 AM EDT [...] intermittent Tylenol for discomfort. documented in this [facility]04-17-2025 History of Present illness Narrative* Angela Christieoney - 07/14/2024 8:30 AM EDT Images from the original note were not [...] KNEE ARTHROPLASTY Left 01/2022 KNEE CARTILAGE SURGERY 2004 Meniscus Surgery LAMINECTOMY 2004 L5-S1- Dr. Chester [place] REPAIR OF ABDIEL,ONE 2009 TOTAL HIP ARTHROPLASTY [...] the proximal humeral area. The left shoulder hasnear full range of motion. There is some [...] was injected to the right shoulder under ultrasoundguidance. Limited exam shows thinning of the rotator cuff, hypertrophic A/C joint. Biceps tendon isintact. The needle was captured and saved to the permanent record. She is aware that she can have up to three injections per year. 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 The left shoulder has similar pattern just to a lesser degree. We discussed injections in that areaif having continued pain. We will set up a referral to physician bilingual medical assistant Cindy Valadez for five viewcervical x-rays and further work up of her [...] 07/19/2024 7:32 AM EDT documented in this encounterSaint Luke's HospitalAmpvwbaenb69-93-3479 History of Present illness Narrative* Redd Sandoval DPM - 04/19/2024 1:10 PM EST Patient: Neisha Lima [place] : 1960 PCP: [...] History: Diagnosis Date Arthritis COVID-19 11/2020 Depression ([facility]) High cholesterol ([facility]) Obesity Thyroid disease ([facility]) Medications: Current Outpatient Medications: celecoxib (CeleBREX) 200 [...] procedure including high reoccurence rate, infection, pain andconsent given. Application of DSD post procedure. Patient to continue with oral anti - inflammatories as needed for pain and recommended OTC medications such as tylenol or Ibuprofen Redd Sandoval DPM documented in this encounterSaint Luke's HospitalJbxvspxvbc34-73-4807 History of Present illness Narrative* Redd Sandoval DPM - 04/05/2024 9:00 AM EST Patient: Neisha Lima [place] : 1960 PCP: Lucretia Lee MD SUBJECTIVE Neisha Quinatna 63 y.o. presents today for follow up [...] History: Diagnosis Date Arthritis COVID-19 11/2020 Depression ([facility]) High cholesterol ([facility]) Obesity Thyroid disease ([facility]) Medications: Current Outpatient Medications: celecoxib (CeleBREX) 200 [...] procedure including high reoccurence rate, infection, pain andconsent given. Application of DSD post procedure. Patient to continue with oral anti - inflammatories as needed for pain and recommended OTC medications such as tylenol or Ibuprofen Discussed conservative and surgical treatment options for patient today including postoperative time frame and surgical procedure in detail. Patient may continue with conservative treatments including [id number] anti- inflammatories and other treatments suggested today. Patient may want to be s cheduled for surgical intervention in the near future. Discussed possible surgical excision of lesion in future if problematic Redd Sandoval DPM documented in this encounterSaint Luke's [id number] History of Present illness Narrative* Redd Lima Jaime, DPM - 03/18/2024 9:20 AM EST Patient: Neisha Quintana : 1960 PCP: Lucretia Lee MD SUBJECTIVE Neisha Gonzalezr 63 y.o. presents today for follow up [...] procedure including high reoccurence rate, infection, pain andconsent given. Application of DSD post procedure. Patient to continue with oral anti - inflammatories as needed for pain and recommended OTC medications such as tylenol or Ibuprofen Redd Sandoval DPM documented in this encounterSaint Luke's [id number] History of Present illness Narrative* Redd Sandoval DPM - 03/04/2024 10:30 AM EST Patient: Neisha Quintana : 1960 PCP: Lucretia [...] procedure including high reoccurence rate, infection, pain andconsent given. Application of DSD post procedure. Patient to continue with oral anti - inflammatories as needed for pain and recommended OTC medications such as tylenol or Ibuprofen Redd Sandoval DPM documented in this encounterSaint Luke's [id number] History of Present illness Narrative* Redd Sandoval DPM - 02/04/2024 8:50 AM EST Patient: Neisha Quintana : 1960 PCP: Lucretia [...] patient today and discussed conservative treatments and possibleexcisional biopsy of lesion in the future for pathological diagnosis of specimen. Patient may take porl-vly-mmnjwsc NSAID p.r.n. for pain Application of salinocaine acid medication to lesion/lesions l ocated at left foot Informed pt of risks and benefits of procedure including high reoccurence rate, infection, pain andconsent given. Application of DSD post procedure. Discussed possible custom orthotics and patient may consider with metatarsal pad and offloading to the sub 1st metatarsal region of the foot otherwise patient is to continue with gel insoles at this time Redd Sandoval DPM documented in this encounterSaint Luke's [id number] NoteRight Eye Quality was good. Scan locations included subfoveal. Progression has been stable. Findings include normal observations. Left Eye Quality was good. Scan locations included subfoveal. Progression has been stable. Findings include abnormal foveal contour, epiretinal membrane. Notes Increased macular volume left eye (OS).[facility] [id number] History of Present illness Narrative* Kristal Milton DO - 11/24/2023 8:30 AM EDT Images from the original note were not [...] to the patient. An epiretinal membrane (ERM) hasthe potential to influence quality of vision including [...] lid scrubs were recommended. documented in this encounterSaint Luke's HospitalCropfcbxqk46-12-1414 Evaluation note* Encounter Date Diagnosis Assessment Notes Treatment Notes Treatment Clinical Notes Nov, Lumbar stenosis with neurogenic claudication (ICD-10 - M48.062) Perk Other chicr complaint Narrative - Reported* NEISHA QUINTANA is [...] walking on a daily basis. We did reimbursement counselor her on dietary discretion, weight loss and exercise following her hip replacement, we will follow-up as needed. -[facility]-[employer] DO Work Phone: Evaluation note* Diagnosis Capsulitis of metatarsophalangeal (MTP) joint of left foot- Primary Neoplasm of uncertain behavior of skin Verruca plantaris Plantar wart Foot pain, left Pain in soft tissues of limb documented in this encounter [facility] HealthcareEvaluation note* Diagnosis Verruca plantaris- Primary Plantar wart Foot pain, left Pain in soft tissues of limb Capsulitis of metatarsophalangeal (MTP) joint of left foot documented in this encounter [facility] HealthcareEvaluation [facility]* Diagnosis Age-related nuclear cataract of both eyes- Primary Epiretinal membrane (ERM) of left eye Dry eyes Unspecified tear film insufficiency Blepharitis of upper and lower eyelids of both eyes, unspecified type documented in this encounter [facility] HealthcareEvaluation note* Diagnosis Verruca plantaris- Primary Plantar wart Foot pain, left Pain in soft tissues of limb Capsulitis of metatarsophalangeal (MTP) joint of left foot documented in this encounter [facility] HealthcareEvaluation note* Diagnosis Exostosis of left foot- [...] eyes, unspecified type documented in this encounter [facility] HealthcareHistory general Narrative - Reported* Type Description Date Medical History Arthritis Medical HistoryThyroid diseaseMedical HistoryDepressionMedical Historyhigh cholesterolMedical HistoryobesityMedical Historyhigh blood pressureMedical HistoryanxietySurgical HistoryProcedure:Meniscus Surgery;Disease:2004Surgical HistoryProcedure:B/L bunionectomy;Disease:1983Surgical History Procedure:laparotomy;Disease:1983Surgical HistoryProcedure:Laminectomy L5-S1- Dr. ChesterNknkzdgizu7057Dtchipis HistoryProcedure:bunionectomy/hammertoe repair;Disease:2008Surgical HistoryR TKA MTP06/10/2016Hospitalization HistorySee Sx Hx Perk Other Family History No Family History Records FoundUnknown Family Member Name Dates Details Family history of diabetes m ellitus: Mother, Father(V18.0, Z83.3) Status:ActiveFamily history of hypertension: Mother, Father(V17.49, Z82.49) Status:ActiveFamily history of myocardial infarction: Mother(V17.3, Z82.49) Status:ActiveH/O heart bypass surgery: Mother(V45.81, Z95.1) Status:ActiveFamily history of congestive heart failure: Father(V17.49, Z82.49) Status:ActiveFamily history of leukemia: Father(V16.6, Z80.6) Status:ActiveFamily history of malignant neoplasm: Sibling(V16.9, Z80.9) Status:Active Summary Purpose Advance Directives No Advanced Directives Records FoundNo Advanced Directives Records FoundNo Advanced Directives Records FoundNo Advanced Directives Records FoundNo Advanced Directives Records Found Additional Source Comments INFORMATION SOURCE (unrecogn ized section and content) DATE CREATED AUTHOR 07/12/2021 [employer] DATE CREATED AUTHOR AUTHOR'S ORGANIZ ATION 03/26/2022 [facility] DATE CREATED AUTHOR AUTHOR'S ORGANIZ ATION 02/25/2024 [facility] DATE CREATED AUTHOR AUTHOR'S ORGANIZ ATION 09/19/2024 [facility] DATE CREATED AUTHOR AUTHOR'S ORGANIZ ATION 11/27/2024 [facility] EPIC REASON FOR VISIT (unrecogniz ed section and content) ReasonCommentsFoot CallousesLt Gt callous/ cornReasonCommentsFollow-up2wk lesionsReasonCommentsEye ExamReasonCommentsFollow-upLesion checkReasonComments Follow-upLt lesion checkReasonCommentsPainReasonCommentsFollow-upMRI [facility] 08/05/24 Care Teams (unrecognized sec tion and content) Team MemberRelationshipSpecialtyStart DateEnd Date Lucretia Lee MD [address] [place] [address] PCP - GeneralFamily Medicine09/04/22Team MemberRelationshipSpecialtyStart DateEnd Date Lucretia Lee MD [address] [place] [address] PCP - GeneralFamily Medicine09/04/22Team MemberRelationshipSpecialtyStart DateEnd Date Lucretia Lee MD [address] [place] [facility] [address] PCP - GeneralFamily Medicine09/04/22Team MemberRelationshipSpecialtyStart DateEnd Date Lucretia Lee MD [address] [facility] [address] PCP - GeneralFamily Medicine09/04/22am MemberRelationshipSpecialtyStart DateEnd Date Lucretia Lee MD [address] [place] [facility] [address] PCP - GeneralFamily Medicine09/04/22am MemberRelationshipSpecialtyStart DateEnd Date Lucretia Lee MD [address] [place] [facility] [address] PCP - GeneralFamily Medicine09/04/22am MemberRelationshipSpecialtyStart DateEnd Date Lucretia Lee MD [address] [place] [facility] [address] PCP - GeneralFamily Medicine09/04/22Team MemberRelationshipSpecialtyStart DateEnd Date Lucretia Lee MD [address] [place] [facility] [address] PCP - GeneralFamily Medicine09/04/22Team MemberRelationshipSpecialtyStart DateEnd Date Lucretia Lee MD [address] [place] [facility] [address] PCP - GeneralFamily Medicine08/03/24Team MemberRelationshipSpecialtyStart DateEnd Date Lucretia Lee MD [address] [place] [facility] [address] PCP - [facility]08/03/24Te MemberRelationshipSpecialtyStart DateEnd Date Lucretia Lee MD [address] [place] [facility] [address] PCP - [facility]08/03/24Te MemberRelationshipSpecialtyStart DateEnd Date Lucretia Lee MD [address] [place] [facility] [address] PCP - [facility]08/03/24Te MemberRelationshipSpecialtyStart DateEnd Date Lucretia Lee MD [address] [place] [facility] [address] [facility] - [facility]08/03/24Team MemberRelationshipSpecialtyStart DateEnd Date Lucretia Lee MD [address] [place] [facility] [address] PCP - [facility]08/03/24 FOR RECORDS PERTAINING TO PATIENTS WHO ARE [...] BE BASED ON THE PRIMARY CLINICAL RECORDS. [facility] [employer] [facility]. provides no warranty or guarantee of the accuracy or completeness of information in this document.
--- OUTSIDE RECORDS SUMMARY | 2025-01-20 09:31 | XMS_ITS | Clinical Summary ---
Author Organization [facility] Address [address] [place] [address] Care Team Providers Care Biochemistry Teacher Name Role Phone Jaciel Lee MD Primary Care Provider [phone] Allergies No known active allergies Medications MedicationSigDispense QuantityRefillsLast FilledStart DateEnd DateStatus celecoxib (CeleBREX) 200 MG capsule 08/18/2022ctive Synthroid 112 MCG tablet 3Active lisinopril 10 MG tablet Active metoprolol tartrate (Lopressor) 50 MG tablet every 12 (twelve) hoursActive pantoprazole (ProtoNix) 40 MG EC tablet 1 (one) time each day at the same timeActive Crestor 20 MG tablet Active citalopram (CeleXA) 10 MG tablet Take 10 mg by mouth DailyActive Cytomel 5 MCG tablet 4Active Vitamin D-Vitamin K (DosoKap) 137.5-200 MCG tablet Take 1 tablet by mouth Daily5Active gabapentin (Neurontin) 300 MG capsule Indications:Left cervical radiculopathyTake 1 capsule (300 mg) by mouth as needed at bedtime (nerve pain) 30 capsule 5Active Active Problems ProblemNoted DateDiagnosed DateEpiretinal membrane (ERM) of left eye11/19/2022 Age-related nuclear cataract of both eyes11/19/2022ry eyes11/19/2022lepharitis of upper and lower eyelids of both eyes11/19/2022 Encounters DateTypeDepartmentCare CignGpirlpnkjyy83/29/2025 8:30 AM EDTOffice Visit [facility] [address] [place] [address] Vito Milton, DO Age-related nuclear cataract of both eyes (Primary Dx); Epiretinal membrane (ERM) of left eye; Dry eyes; Blepharitis of upper and lower eyelids of both eyes, unspecified type11/25/2024 Bamboo flowsheet [facility] Eye [address] [place] [address] Vito Milton, 11/25/2024Travelfrom Last 3 Months Family History Medical HistoryRelationNameCommentsCancerFatherDiabetesFatherHeart diseaseFather HypertensionFatherOsteoarthritisFatherDiabetesMotherHeart diseaseMother HypertensionMotherRelationNameStatusCommentsBrotherAliveFatherOtherMother Social History Tobacco UseTypesPacks/DayYears UsedDateSmoking Tobacco: NeverPassive Smoke Exposure: NeverSmokeless Tobacco: Never Tobacco Cessation:Counseling Given: No Alcohol UseStandard Drinks/WeekCommentsNot Currently7 (1 standard drink = 0.6 oz pure alcohol)caffeine intake: 1-2 cups per day of coffee/ sodaComments UnknownSex and Gender InformationValueDate RecordedSex Assigned at BirthNot on fileLegal FvrPzqpir27/15/2023 6:42 PM EDTGender IdentityNot on fileSexual OrientationNot on file Last Filed Vital Signs Vital SignReadingTime TakenCommentsBlood Nxqaoxtx433/8111 8:51 AM EST Tsmsj0263 8:51 AM HGBNephbwszvya40.9 ??C (98.5 ??F)02/10/2023 9:22 AM ESTRespiratory Wgxe466704/05/2024 8:53 AM ESTOxygen Saturation--Inhaled Oxygen Concentration--Gbczqe39 kg (194 lb)08/17/2024 1:49 PM DEGLkvnlp998.1 cm (5' 5 ) 08/17/2024 1:49 PM EDTBody Mass Index32.28008/17/2024 1:49 PM EDT Plan of Treatment DateTypeDepartmentCare Team (Latest Contact Info)Fwzelnuctjf41/01/2026 8:15 AM EDTOffice Visit [facility] Eye [address] [place] [phone] Vito Milton, DO [address] [place] [address] Procedures Procedure NamePriorityDate/TimeAssociated DiagnosisCommentsOCT, RETINA - OU - BOTH GKIEYsqasei00/29/2025 8:58 AM EDT Epiretinal membrane (ERM) of left eye from Last 3 Months Results * OCT, Retina - OU - Both Eyes (11/25/2024 8:58 AM EDT)Anatomical Region LateralityModalityHeadOptical Coherence Tomography Narrative 11/25/2024 8:58 AM EDT Right Eye Quality was good. Scan locations included subfoveal. Progression has been stable. Findings include normal observations. Left Eye Quality was good. Scan locations included subfoveal. Progression has been stable. Findings include abnormal foveal contour, epiretinal membrane. Notes Good scan with normal appearance OD Authorizing ProviderResult TypeResult StatusVito Milton DOOPHTH TOMOGRAPHY Edited Result - Final from Last 3 Months Insurance Care Teams Team MemberRelationshipSpecialtyStart DateEnd Jaciel Lee MD [address] [place] [address] PCP - GeneralFamily Medicine08/03/24
== END 2025-01-20 09:28 | disposition home or self-care (01) ==
LOC: MRI 09:27
PROVIDERS: PCP Family Medicine; Visit Provider Family Medicine
DX: R41.3 Other amnesia (principal)
CPT/HCPCS: 70551